=== PATIENT | female | born 1955 | race Two or more races ===

== ENCOUNTER 2019-09-11 17:08 | Inpatient (IN) | payer MEDICARE, MEDICAID ==
[~2019-09-11] VITALS: Ht 162.6 cm; Wt 87.0 kg
[2019-09-11] MEDS ORDERED: ACETAMINOPHEN 500 MG TAB PO ONE (18:00)
[2019-09-11 18:36] LABS: Basophils # (auto) 0 10 ^3/uL (0-0.2); Basophils % (auto) 0.3 % (0.0-2.0); Eosinophils # (auto) 0 10 ^3/uL (0-0.8); Hematocrit 44.7 % (36.0-46.0); Hemoglobin 15.1 g/dL (12.2-16.2); Lymphocytes # (auto) 1.2 10 ^3/uL (0.4-5.4); Lymphocytes % (auto) 19.8 % (10.0-50.0); Mean Corpuscular Hemoglobin 30.6 pg (28.0-32.0); Mean Corpuscular Hgb Conc. 33.8 g/dL (32.0-36.0); Mean Corpuscular Volume 90.5 fL (80.0-100.0); Monocytes # (auto) 0.5 10 ^3/uL (0-1.3); Monocytes % (auto) 7.7 % (0.0-12.0); Neutrophils # (auto) 4.2 10 ^3/uL (1.6-8.6); Neutrophils % (auto) 72.2 % (37.0-80.0); Nucleated Red Blood Cells % 0.4 %; Platelet Count (auto) 174 10^3/uL (140-450); Red Blood Cells 4.94 10^6/uL (4.0-5.20); White Blood Cell 5.9 10^3/uL (4.4-10.8)
[2019-09-11] MEDS ORDERED: SODIUM CHLORIDE 0.9% 1,000 ML IV ONE (18:45)
[2019-09-11] MEDS ORDERED: DexAMETHasone SOD PHOS 10MG/1ML VIAL INJ IV ONE (18:45)
[2019-09-11] MEDS ORDERED: DOXYCYCLINE 100MG/250ML 250 ML IV ONE (18:45)
[2019-09-11 18:52] LABS: Albumin 3.3 g/dL (3.4-5.0); Calcium 8.4 mg/dL (8.5-10.1); Potassium 3.6 mmol/L (3.5-5.1)
[2019-09-11 18:54] LABS: INR 0.98 (0.9-1.15); Partial Thromboplastin Time 27.3 sec (23.64-32.05)
[2019-09-11 19:00] LABS: BUN/Creatinine Ratio 12.5; Bilirubin, Total 0.4 mg/dL (0.2-1.0); CRP High Sensitivity 2.1 mg/dL (< 0.3)
[2019-09-11 23:30] LABS: Urine Bacteria NONE SEEN /hpf (None Seen); Urine Blood Negative /uL (Negative); Urine Specific Gravity 1.007 (1.001-1.035); Urine WBC 1 /hpf (0 - 5)
[2019-09-12] VITALS (7 sets, daily range): BP systolic 107–142; BP diastolic 51–83
[2019-09-12] MEDS ORDERED: NITROGLYCERIN 0.4 MG SL TAB SL PRN (03:00)
[2019-09-12] MEDS ORDERED: ONDANSETRON HCL 4 MG/2 ML VIAL IV PRN (03:00)
[2019-09-12] MEDS ORDERED: MORPHINE SULF INJ 2 MG/ML SYRINGE 1ML IV PRN (03:00)
[2019-09-12] MEDS ORDERED: ACETAMINOPHEN 500 MG TAB PO PRN (03:00)
--- NOTE | 2019-09-12 04:50 | NUR ---
Opening note Telemetry admit from ER RUDDY TEAGUE admitted to Telemetry unit after SBAR received. Patient oriented to MK THOMSON, RN primary RN, unit, room, bed, and unit policies regarding patient care and visiting hours. Patient now on continuous telemetry monitoring, tele box # 19 and telemetry reading on arrival to unit is NSR HR 69. Patient placed on bedside oxygen, weighed by bedscale and encouraged to call if they need something. All questions and concerns addressed, patient verbalized understanding.
[2019-09-12] MEDS ORDERED: ASPI-394 PO (05:49)
[2019-09-12] MEDS ORDERED: AMLO5TAB15 PO (05:51)
--- NOTE | 2019-09-12 07:16 | NUR ---
Closing note endorsed care to day shift RN No sob or distress noted.
[2019-09-12] MEDS: ALBUTEROL SULF HFA 90MCG INH 200DOSE IN SCH ×3 (08:48→23:05)
[2019-09-12] MEDS: ZINC SULFATE 220mg CAP or TAB PO SCH (08:54)
[2019-09-12] MEDS: DOXYCYCLINE 100MG/250ML 250 ML IV SCH ×2 (08:54→20:52)
[2019-09-12] MEDS: FAMOTIDINE 20 MG TAB PO SCH ×2 (08:54→20:52)
[2019-09-12] MEDS: ASCORBIC ACID 1,000 MG TAB PO SCH (08:55)
[2019-09-12] MEDS: CHOLECALCIFEROL (VITD3) 2,000 UNIT CAP PO SCH (08:55)
[2019-09-12] MEDS ORDERED: ENOXAPARIN SOD 40 MG/0.4 ML SYRINGE SC SCH (10:00)
[2019-09-12] MEDS ORDERED: BUDESONIDE (INHALATION) 180 MCG IH IN SCH ×2 (10:00→10:06)
[2019-09-12] MEDS ORDERED: DexAMETHasone SOD PHOS 10MG/1ML VIAL INJ IV SCH (10:00)
--- NOTE | 2019-09-12 12:10 | NUR ---
DR MEJIA BEDSIDE WITH PATIENT.
[2019-09-12] MEDS ORDERED: DexAMETHasone 4 MG TAB PO ONE (13:30)
[2019-09-12] MEDS ORDERED: FUROSEMIDE 20 MG/2 ML VIAL IV ONE (13:30)
[2019-09-12] MEDS ORDERED: POTASSIUM CHL 10 Meq TABLET PO ONE (13:30)
[2019-09-12] MEDS: HYDROcodone-ACET 5/325MG TAB PO PRN (14:12)
[2019-09-12] MEDS ORDERED: guaiFENesin-DM 100/10mg/5ml SYR PO PRN (14:15)
[2019-09-12] MEDS: FUROSEMIDE 20 MG/2 ML VIAL IV SCH (17:57)
--- NOTE | 2019-09-12 19:22 | NUR ---
Opening note Assumed care of patient. Patient is alert and orientated x4. resting watching television. No sob or distress noted. Patient states no pain at this time. Bed locked in lowest position. Side rails up x2. Poc reviewed. questions answered at this time. Will continue to monitor.
[2019-09-12] MEDS: POTASSIUM CHL 10 Meq TABLET PO SCH (20:52)
[2019-09-12] MEDS: ENOXAPARIN SOD 40 MG/0.4 ML SYRINGE SC SCH (20:53)
[2019-09-12] MEDS: BUDESONIDE (INHALATION) 180 MCG IH IN SCH (23:05)
--- NOTE | 2019-09-13 01:06 | NUR ---
Patient rounding Patient is asleep in bed. Chest evenly rising, no SOB or distress noted. patient is on 2L nasal canula. Call light within reach. Will continue to monitor.
[2019-09-13 05:00] VITALS: BP 112/64
[2019-09-13] MEDS: FUROSEMIDE 20 MG/2 ML VIAL IV SCH ×2 (05:39→17:37)
[2019-09-13] MEDS: HYDROcodone-ACET 5/325MG TAB PO PRN ×2 (05:53→21:19)
--- NOTE | 2019-09-13 07:11 | NUR ---
Closing note endorsed care to day shift RN no sob or distress noted.
[2019-09-13 08:00] VITALS: BP 104/64
[2019-09-13] MEDS: ALBUTEROL SULF HFA 90MCG INH 200DOSE IN SCH ×3 (08:08→22:00)
[2019-09-13] MEDS: BUDESONIDE (INHALATION) 180 MCG IH IN SCH ×2 (08:08→22:00)
[2019-09-13 09:00] VITALS: BP 104/64
[2019-09-13] MEDS: amLODIPine BESYLATE 5 MG TAB PO SCH (10:00)
[2019-09-13] MEDS: ZINC SULFATE 220mg CAP or TAB PO SCH (10:12)
[2019-09-13] MEDS: POTASSIUM CHL 10 Meq TABLET PO SCH ×2 (10:12→21:18)
[2019-09-13] MEDS: DexAMETHasone 4 MG TAB PO SCH (10:12)
[2019-09-13] MEDS: ASPirin-EC 81 mg tab PO SCH (10:12)
[2019-09-13] MEDS: DOXYCYCLINE 100MG/250ML 250 ML IV SCH ×2 (10:12→21:18)
[2019-09-13] MEDS: CHOLECALCIFEROL (VITD3) 2,000 UNIT CAP PO SCH (10:13)
[2019-09-13] MEDS: ASCORBIC ACID 1,000 MG TAB PO SCH (10:13)
[2019-09-13] MEDS: FAMOTIDINE 20 MG TAB PO SCH ×2 (10:13→21:18)
[2019-09-13] MEDS: ENOXAPARIN SOD 40 MG/0.4 ML SYRINGE SC SCH ×2 (10:14→21:18)
[2019-09-13 12:24] LABS: Basophils # (auto) 0 10 ^3/uL (0-0.2); Basophils % (auto) 0.1 % (0.0-2.0); Eosinophils # (auto) 0 10 ^3/uL (0-0.8); Hematocrit 42.7 % (36.0-46.0); Hemoglobin 14.1 g/dL (12.2-16.2); Lymphocytes % (auto) 8.2 % (10.0-50.0); Mean Corpuscular Hgb Conc. 33.1 g/dL (32.0-36.0); Mean Corpuscular Volume 90.8 fL (80.0-100.0); Monocytes # (auto) 0.7 10 ^3/uL (0-1.3); Monocytes % (auto) 5.9 % (0.0-12.0); Neutrophils # (auto) 10.4 10 ^3/uL (1.6-8.6); Neutrophils % (auto) 85.8 % (37.0-80.0); Platelet Count (auto) 215 10^3/uL (140-450); Red Cell Distribution Width 13.7 % (11.8-14.3); White Blood Cell 12.1 10^3/uL (4.4-10.8)
--- NOTE | 2019-09-13 12:40 | NUR ---
DR METCALF BEDSIDE WITH PATIENT
[2019-09-13 12:42] LABS: Albumin 2.9 g/dL (3.4-5.0); Calcium 8.7 mg/dL (8.5-10.1); Potassium 3.3 mmol/L (3.5-5.1)
[2019-09-13 12:46] LABS: BUN/Creatinine Ratio 20.9; Bilirubin, Total 0.3 mg/dL (0.2-1.0); Total Protein 7.4 g/dL (6.4-8.2)
[2019-09-13 13:00] VITALS: BP 113/65
[2019-09-13] MEDS ORDERED: POTASSIUM CHL 20 Meq TABLET PO ONE (14:15)
[2019-09-13 17:29] VITALS: BP 108/60
--- NOTE | 2019-09-13 19:40 | NUR ---
Opening Shift Note Received report and assumed care of patient. Patient is awake and alert. No signs or symptoms of distress noted. Instructed patient on plan of care and to call for assistance as needed. Will continue to monitor.
--- NOTE | 2019-09-13 21:19 | NUR ---
Pain Medication Administration Patient complaining of headache pain level 8/10. Patient requesting [place]. Educated patient regarding pain level and pain medications. Patient verbalized understanding, continues to request [place]. Will administer pain medication per MD order. Will reassess pain level and will continue to monitor.
[2019-09-13 22:00] VITALS: BP 125/79
--- NOTE | 2019-09-13 22:19 | NUR ---
Pain Level Reassessment Patient asleep for pain level reassessment. No signs or symptoms of distress noted. Will continue to monitor.
[2019-09-14] MEDS: TEMAZEPAM 15 MG CAP PO PRN (00:07)
[2019-09-14 05:00] VITALS: BP 104/71
[2019-09-14 06:45] LABS: Basophils # (auto) 0 10 ^3/uL (0-0.2); Eosinophils # (auto) 0 10 ^3/uL (0-0.8); Hematocrit 41.3 % (36.0-46.0); Hemoglobin 13.8 g/dL (12.2-16.2); Lymphocytes # (auto) 1.1 10 ^3/uL (0.4-5.4); Lymphocytes % (auto) 8.7 % (10.0-50.0); Mean Corpuscular Hemoglobin 30.3 pg (28.0-32.0); Mean Corpuscular Hgb Conc. 33.5 g/dL (32.0-36.0); Mean Corpuscular Volume 90.2 fL (80.0-100.0); Monocytes # (auto) 0.7 10 ^3/uL (0-1.3); Monocytes % (auto) 5.6 % (0.0-12.0); Neutrophils % (auto) 85.7 % (37.0-80.0); Nucleated Red Blood Cells % 0.1 %; Platelet Count (auto) 226 10^3/uL (140-450); Red Blood Cells 4.57 10^6/uL (4.0-5.20); Red Cell Distribution Width 13.9 % (11.8-14.3); White Blood Cell 12.9 10^3/uL (4.4-10.8)
[2019-09-14] MEDS: FUROSEMIDE 20 MG/2 ML VIAL IV SCH ×2 (06:51→18:43)
[2019-09-14 07:06] LABS: Albumin 2.9 g/dL (3.4-5.0); Calcium 8.7 mg/dL (8.5-10.1); Magnesium 2.6 mg/dL (1.6-2.6)
[2019-09-14 07:14] LABS: BUN/Creatinine Ratio 23.5; Bilirubin, Total 0.4 mg/dL (0.2-1.0); CRP High Sensitivity 1.83 mg/dL (< 0.3); Total Protein 7.4 g/dL (6.4-8.2)
[2019-09-14] MEDS: BUDESONIDE (INHALATION) 180 MCG IH IN SCH ×2 (07:39→21:55)
[2019-09-14] MEDS: ALBUTEROL SULF HFA 90MCG INH 200DOSE IN SCH ×3 (07:39→21:55)
[2019-09-14 09:00] VITALS: BP 114/76
[2019-09-14] MEDS: DOXYCYCLINE 100MG/250ML 250 ML IV SCH ×2 (09:39→22:11)
[2019-09-14] MEDS: DexAMETHasone 4 MG TAB PO SCH (09:39)
[2019-09-14] MEDS: ASPirin-EC 81 mg tab PO SCH (09:39)
[2019-09-14] MEDS: CHOLECALCIFEROL (VITD3) 2,000 UNIT CAP PO SCH (09:40)
[2019-09-14] MEDS: ASCORBIC ACID 1,000 MG TAB PO SCH (09:40)
[2019-09-14] MEDS: FAMOTIDINE 20 MG TAB PO SCH ×2 (09:40→22:11)
[2019-09-14] MEDS: POTASSIUM CHL 10 Meq TABLET PO SCH ×2 (09:40→22:11)
[2019-09-14] MEDS: ZINC SULFATE 220mg CAP or TAB PO SCH (09:41)
[2019-09-14] MEDS: amLODIPine BESYLATE 5 MG TAB PO SCH (09:43)
[2019-09-14] MEDS: HYDROcodone-ACET 5/325MG TAB PO PRN ×2 (09:48→19:20)
[2019-09-14] MEDS ORDERED: PATIENTS OWN MEDICATION (REMDESIVIR 200 MG) IV SCH (12:15)
[2019-09-14 13:00] VITALS: BP 113/69
[2019-09-14] MEDS: ENOXAPARIN SOD 40 MG/0.4 ML SYRINGE SC SCH ×2 (14:16→22:11)
[2019-09-14] MEDS ORDERED: REMDESIVIR 200 MG in NS 210ml LOADING DOSE ADULT IV ONE (17:00)
--- NOTE | 2019-09-14 17:40 | NUR ---
REMDESIVIR STARTED B/P 114/75
--- NOTE | 2019-09-14 17:57 | NUR ---
B/P 117/52 OXYGEN SATURATION 96 % ON 15 LITERS NON REBREATHER
[2019-09-14 18:13] VITALS: BP 114/75
--- NOTE | 2019-09-14 19:36 | NUR ---
Opening Shift Note Received report and assumed care of patient. Patient is awake and alert. No signs or symptoms of distress noted, patient currently denies pain. Instructed patient on plan of care and to call for assistance as needed. Will continue to monitor.
--- NOTE | 2019-09-14 21:55 | NUR ---
IV insertion IV access obtained, via sterile technique by inserting 22 gauge IV catheter to the Left wrist. IV secured properly. No trauma to site. Patient tolerated well. NOTE: Patient has 20g IV catheter to Right AC for Remdesivir.
[2019-09-14 22:00] VITALS: BP 125/77
[2019-09-15 02:26] VITALS: BP 125/77
[2019-09-15 05:00] VITALS: BP 154/93
[2019-09-15] MEDS: FUROSEMIDE 20 MG/2 ML VIAL IV SCH ×2 (06:17→17:28)
[2019-09-15] MEDS: BUDESONIDE (INHALATION) 180 MCG IH IN SCH ×2 (08:19→21:18)
[2019-09-15] MEDS: ALBUTEROL SULF HFA 90MCG INH 200DOSE IN SCH ×3 (08:19→21:17)
--- NOTE | 2019-09-15 08:30 | NUR ---
Patient refuses to wear Oxymizer because it bothers her, she also will not keep non rebreather on all the time, she take it off frequently. When educated on the need to wear oxygen the patient verbalizes understanding but each time I enter the room she is not fully wearing it, it is sitting below her chin.
[2019-09-15 09:00] VITALS: BP 121/71
[2019-09-15] MEDS: DOXYCYCLINE 100MG/250ML 250 ML IV SCH ×2 (10:14→21:15)
[2019-09-15] MEDS: DexAMETHasone 4 MG TAB PO SCH (10:15)
[2019-09-15] MEDS: FAMOTIDINE 20 MG TAB PO SCH ×2 (10:15→21:14)
[2019-09-15] MEDS: ASCORBIC ACID 1,000 MG TAB PO SCH (10:15)
[2019-09-15] MEDS: ZINC SULFATE 220mg CAP or TAB PO SCH (10:15)
[2019-09-15] MEDS: ASPirin-EC 81 mg tab PO SCH (10:15)
[2019-09-15] MEDS: POTASSIUM CHL 10 Meq TABLET PO SCH ×2 (10:15→21:14)
[2019-09-15] MEDS: ENOXAPARIN SOD 40 MG/0.4 ML SYRINGE SC SCH ×2 (10:16→21:15)
[2019-09-15] MEDS: CHOLECALCIFEROL (VITD3) 2,000 UNIT CAP PO SCH (10:16)
[2019-09-15] MEDS: amLODIPine BESYLATE 5 MG TAB PO SCH (10:16)
[2019-09-15 12:00] VITALS: BP 129/91
--- NOTE | 2019-09-15 12:00 | NUR ---
Patient complained that IV was uncomfortable, although still patent, and asked for it to be removed. Patient tolerated well, IV removed with catheter intact.
--- NOTE | 2019-09-15 12:59 | NUR ---
Nutrition Assessment Notes Please refer to link for full assessment notes. Est Energy needs: 9194-0893 kcals (17-20 kcal/kgBW) Est Protein needs: 82-109 gms/day (1.5-2.0 gm/kgIBW) Will continue to monitor and reassess prn. Addendum: 09/15/19 at [address] Amended: Links added.
[2019-09-15] MEDS: HYDROcodone-ACET 5/325MG TAB PO PRN ×2 (13:17→21:15)
[2019-09-15 17:00] VITALS: BP 113/83
[2019-09-15] MEDS: REMDESIVIR 100mg in NS 230ml DAILYx4DAYS (NO VENT) IV SCH (17:03)
--- NOTE | 2019-09-15 19:30 | NUR ---
Opening Shift Note Assumed care of patient, awake and alert x 4. Patient denies pain or shortness of breath at this time. Patient is on 10L/min simple mask, SPO2: 91% at this time. Instructed on plan of care and encouraged patient to call for assistance as needed, patient verbalized understanding. Incentive spirometer noted at the bedside, patient encouraged to use incentive spirometer at least 10 times every hour while awake. Patient encouraged to prone as tolerated, patient verbalized understanding. Bed is locked in lowest position, side rails x 2 are up, and call light is within reach.
--- NOTE | 2019-09-15 21:00 | NUR ---
Oxygen Desaturation Patient called, upon entering room patient was found with mask off, SPO2: at 82%. Patient was complaining of a headache at this time. This RN instructed patient to place mask on and educated patient on the importance of leaving the mask on and the risks of hypoxia, patient verbalized understanding. Patient placed on 15L/min nonrebreather, SPO2 increased to 94%. No sign/symptoms of distress noted or verbalized at this time. Bed is locked in lowest position, side rails x2 are up, and call light is within reach.
--- NOTE | 2019-09-15 21:17 | NUR ---
RT NOTE PT WAS SEEN BY RT FOR MDI TX. PT TOLERATES WELL VIA SPACER. PT RINSED MOUTH WITH WATER POST MDI TX. HR 97, RR20, BS CLEAR/DIMINISHED, POX 92% ON 15L NONREBREATHER. CONT ORDERED Addendum: 09/15/19 at 2308 by Nilda Abrams RT Amended: Links added.
--- NOTE | 2019-09-15 21:55 | NUR ---
Bed Bath Assisted patient with a bed bath. Full linen change was done. Patient was provided with a clean gown. Patient tolerated well. Patient is on 15L/min nonrebreather, SPO2: 92% at this time. Bed is locked in lowest position, side rails x 2 are up, and call light is within.
[2019-09-15 22:00] VITALS: BP 142/89
--- NOTE | 2019-09-16 05:00 | NUR ---
Oxygen Desaturation Patient's oxygen saturation noted at 79% on equipment monitor phototypesetting. Upon entering room patient had nonrebreather off. This RN instructed patient to place nonrebreather back on and educated patient on the risks of hypoxia, patient verbalized understanding and stated that she took off the nonrebreather off due to nausea. This RN medicated patient for nauseas as ordered by MD (see eMAR). Patient is currently laying in bed with even and unlabored respirations. Patient is on 15L/min nonrebreather, spo2: 95% at this time. No sign/symptoms of distress noted or verbalized at this time.
[2019-09-16 05:11] VITALS: BP 126/79
[2019-09-16] MEDS: FUROSEMIDE 20 MG/2 ML VIAL IV SCH ×2 (05:38→17:37)
[2019-09-16] MEDS: ALBUTEROL SULF HFA 90MCG INH 200DOSE IN SCH ×3 (05:39→22:02)
[2019-09-16] MEDS: BUDESONIDE (INHALATION) 180 MCG IH IN SCH ×2 (07:20→22:02)
[2019-09-16 07:54] LABS: Basophils # (auto) 0 10 ^3/uL (0-0.2); Basophils % (auto) 0.1 % (0.0-2.0); Eosinophils # (auto) 0 10 ^3/uL (0-0.8); Hematocrit 46.8 % (36.0-46.0); Hemoglobin 15.7 g/dL (12.2-16.2); Lymphocytes # (auto) 1.2 10 ^3/uL (0.4-5.4); Lymphocytes % (auto) 8.3 % (10.0-50.0); Mean Corpuscular Hemoglobin 30.5 pg (28.0-32.0); Mean Corpuscular Hgb Conc. 33.6 g/dL (32.0-36.0); Mean Corpuscular Volume 90.6 fL (80.0-100.0); Monocytes # (auto) 1.2 10 ^3/uL (0-1.3); Monocytes % (auto) 8.3 % (0.0-12.0); Neutrophils # (auto) 11.9 10 ^3/uL (1.6-8.6); Neutrophils % (auto) 83.3 % (37.0-80.0); Nucleated Red Blood Cells % 0.1 %; Platelet Count (auto) 336 10^3/uL (140-450); Red Blood Cells 5.17 10^6/uL (4.0-5.20); Red Cell Distribution Width 13.9 % (11.8-14.3); White Blood Cell 14.3 10^3/uL (4.4-10.8)
[2019-09-16 08:06] LABS: Albumin 3.1 g/dL (3.4-5.0); Calcium 9.2 mg/dL (8.5-10.1); Potassium 3.3 mmol/L (3.5-5.1)
[2019-09-16 08:11] LABS: BUN/Creatinine Ratio 32.8; Bilirubin, Total 0.6 mg/dL (0.2-1.0); Total Protein 8.4 g/dL (6.4-8.2)
[2019-09-16 09:00] VITALS: BP 119/73
--- NOTE | 2019-09-16 10:00 | NUR ---
Patient o2 saturation 75% patient refuses to wear nasal cannula, face mask and oximyzer while eating breakfast, patient shakes her head no, is very short with conversations. I explained that her lungs cannot handle being off oxygen at this point. She just continues to eat, when I ask "do you understand what I am saying?" she shakes her head yes. Dr sanchez aware, she also discussed with patient yesterday. After eating patient reapplies non rebreather at 15L and she is at 96%.
[2019-09-16] MEDS: DexAMETHasone 4 MG TAB PO SCH (10:16)
[2019-09-16] MEDS: ZINC SULFATE 220mg CAP or TAB PO SCH (10:16)
[2019-09-16] MEDS: ASPirin-EC 81 mg tab PO SCH (10:16)
[2019-09-16] MEDS: FAMOTIDINE 20 MG TAB PO SCH ×2 (10:17→23:00)
[2019-09-16] MEDS: ASCORBIC ACID 1,000 MG TAB PO SCH (10:17)
[2019-09-16] MEDS: CHOLECALCIFEROL (VITD3) 2,000 UNIT CAP PO SCH (10:17)
[2019-09-16] MEDS: ENOXAPARIN SOD 40 MG/0.4 ML SYRINGE SC SCH ×2 (10:17→23:01)
[2019-09-16] MEDS: POTASSIUM CHL 10 Meq TABLET PO SCH ×2 (10:17→23:01)
[2019-09-16] MEDS: amLODIPine BESYLATE 5 MG TAB PO SCH (10:20)
--- NOTE | 2019-09-16 10:20 | NUR ---
cant start doxycycline because patient needs remdesevir first, remdesivir not here yet, pharmacy states that they are still making it.
[2019-09-16] MEDS: REMDESIVIR 100mg in NS 230ml DAILYx4DAYS (NO VENT) IV SCH (10:36)
[2019-09-16] MEDS: DOXYCYCLINE 100MG/250ML 250 ML IV SCH ×2 (11:40→23:01)
[2019-09-16 12:00] VITALS: BP 118/60
--- NOTE | 2019-09-16 15:04 | NUR ---
Respiratory note: PATIENT TAKEN OFF NRB AND PLACED ON 10LPM OXYMIZER. SHE IS TOLERATING WELL AND SPO2 MAINTAINS AT 94%. RN MADE AWARE OF CHANGE.
[2019-09-16 16:58] VITALS: BP 120/70
--- NOTE | 2019-09-16 17:00 | NUR ---
Patient family updated on current condition.
--- NOTE | 2019-09-16 20:00 | NUR ---
Opening Shift Note Assumed care of patient, awake and alert x 4. Patient denies pain or shortness of breath at this time. Patient is on 10L/min Oxymizer, SPO2: 91% at this time. Instructed on plan of care and encouraged patient to call for assistance as needed, patient verbalized understanding. Incentive spirometer noted at the bedside, patient encouraged to use incentive spirometer at least 10 times every hour while awake. Patient encouraged to prone as tolerated, patient verbalized understanding. Bed is locked in lowest position, side rails x 2 are up, and call light is within reach.
[2019-09-16] MEDS: HYDROcodone-ACET 5/325MG TAB PO PRN (20:23)
[2019-09-16 22:05] VITALS: BP 102/56
--- NOTE | 2019-09-16 22:50 | NUR ---
PT IS SELF PRONING, NO DISTRESS NOTED. Addendum: 09/16/19 at 2251 by MARJORIE GUZMÁN RT Amended: Links added.
--- NOTE | 2019-09-17 03:56 | NUR ---
Oxygen Desaturation Patient's oxygen saturation noted at 79% on pediatric acute care unit nurse. Upon entering room patient had nonrebreather off. Patient stated she took off the nonrebreather to cough up some sputum. After placing patient back on 15L/min nonrebreather back on, SPO2: increased to 90%. Patient is currently laying in bed with even and unlabored respirations. No sign/symptoms of distress noted or verbalized at this time.
[2019-09-17 05:00] VITALS: BP 106/47
[2019-09-17] MEDS: FUROSEMIDE 20 MG/2 ML VIAL IV SCH ×2 (06:24→18:32)
[2019-09-17] MEDS: ALBUTEROL SULF HFA 90MCG INH 200DOSE IN SCH ×3 (07:02→22:54)
--- NOTE | 2019-09-17 07:12 | NUR ---
Closing Note Patient is laying in prone position with nonrebreather at 15L/min, SPO2: 96% at this time. No sign/symptoms of distress noted or verbalized at this time. Will endorse patient care to day shift RN.
--- NOTE | 2019-09-17 07:30 | NUR ---
Opening Shift Note Assumed care of patient, awake and alert. No S/S of distress/SOB or pain on 15L non-rebreather. Instructed on POC and to call for assist PRN, will continue to monitor for changes Q1hr and PRN. Bed in low and locked position, rails up x2, no-slip socks on.
[2019-09-17] MEDS: BUDESONIDE (INHALATION) 180 MCG IH IN SCH ×2 (07:33→22:54)
--- NOTE | 2019-09-17 08:15 | NUR ---
PATIENT FRUSTRATED-POSSIBLE AMA WITH HELP OF NURSES TO TRANSLATE, PATIENT VOICED FEELINGS OF FRUSTRATION WITH THE HOSPITAL AND COMMUNICATION REGARDING HER CARE. INFORMED PATIENT THAT WHEN MD ARE ROUNDING SHE IS GIVEN OPPORTUNITIES TO ASK QUESTIONS BUT SHE HAS NONE EACH TIME. PATIENT REQUESTING TO LEAVE AMA. EDUCATED PATIENT ON SITUATION OF HER HEALTH, HIGH OXYGEN NEED AND THAT LEAVING THE HOSPITAL AMA IN HER CONDITION CAN RESULT IN . PAGE TO DR MEJIA TO NOTIFY AND CALL TO PATIENTS FAMILY. PASSWORD VERIFIED AND SPOKE TO PATIENT DAUGHTER CHASE, PER CHASE, PATIENT STATED SHE JUST WOULD LIKE MORE ATTENTION TO DETAIL SUCH SELF CARE, CLEANLINESS OF ROOM, COMMUNICATION REGARDING MEALS, WELL COMMUNICATION REGARDING VITAL SIGNS, MEDICATION ADMINISTRATION AND PURPOSE WELL OVERALL PROGRESSION OF DISEASE ETC. CHASE SPOKE TO PATIENT AND PATIENT AGREES TO STAY AND SPEAK TO DR MEJIA REGARDING HER DIAGNOSIS AND CARE BEING TAKEN FOR HER. WILL CONTINUE CARE.
[2019-09-17] MEDS: CHOLECALCIFEROL (VITD3) 2,000 UNIT CAP PO SCH (08:38)
[2019-09-17] MEDS: ZINC SULFATE 220mg CAP or TAB PO SCH (08:38)
[2019-09-17] MEDS: FAMOTIDINE 20 MG TAB PO SCH ×2 (08:39→21:52)
[2019-09-17] MEDS: ASPirin-EC 81 mg tab PO SCH (08:39)
[2019-09-17] MEDS: ASCORBIC ACID 1,000 MG TAB PO SCH (08:39)
[2019-09-17] MEDS: amLODIPine BESYLATE 5 MG TAB PO SCH (08:40)
[2019-09-17] MEDS: DexAMETHasone 4 MG TAB PO SCH (08:41)
[2019-09-17 09:00] VITALS: BP 112/70
[2019-09-17] MEDS: REMDESIVIR 100mg in NS 230ml DAILYx4DAYS (NO VENT) IV SCH (11:23)
[2019-09-17] MEDS: ENOXAPARIN SOD 40 MG/0.4 ML SYRINGE SC SCH ×2 (11:25→21:52)
--- NOTE | 2019-09-17 11:25 | NUR ---
REMDESIVIR STARTED ADMINISTERED PER PROTOCOL TO RIGHT AC 20G TRENDING VITALS 1117: 107/64 HR 62 1138 121/78 HR 74 1229 106/62 HR 70 PATIENT TOLERATED INFUSION WELL WITH NO ADVERSE EFFECTS, WILL CONTINUE TO MONITOR
--- NOTE | 2019-09-17 13:00 | NUR ---
Assessment Patient is a 64-year-old female who is alert and oriented. Prior to admission patient lived with family and functioned independently. Patient informed me she can care for her own ADLs. Patient informed me she does not have any medical equipment now. Per patient she will return home to her prior living arrangements and family will transport her home. Patient PCP is Dr. Perez. Advised patient to follow up with her Primary doctor after discharge. Informed patient she has the right to participate in all discharge planning. Patient verbalize understanding. Addendum: 09/24/19 at 0953 by PATTI WEST Amended: Links added.
[2019-09-17 13:04] VITALS: BP 118/61
--- NOTE | 2019-09-17 14:00 | NUR ---
DR MEJIA AT BEDSIDE UPDATED PATIENT ON PLAN OF CARE, ALL QUESTIONS ANSWERED AND MADE CALL TO PATIENTS FAMILY FOR AN UPDATE, ALL QUESTIONS ANSWERED.
[2019-09-17] MEDS: POTASSIUM CHL 10 Meq TABLET PO SCH (14:01)
[2019-09-17 17:14] VITALS: BP 105/71
--- NOTE | 2019-09-17 19:20 | NUR ---
Opening note Assumed care of patient, patient alert and orientated x4, no sob or distress noted at this time. Patient is on 15L non rebreather, saturation in 94% bed locked in lowest position. Side rails up x2. POC discussed, no questions at this time. Call light within reach, will continue to monitor.
[2019-09-17 20:31] VITALS: BP 105/71
[2019-09-17 22:00] VITALS: BP 126/67
[2019-09-17] MEDS ORDERED: POTASSIUM CHL 20 Meq TABLET PO SCH (22:00)
[2019-09-17] MEDS: MORPHINE SULF INJ 2 MG/ML SYRINGE 1ML IV PRN (23:46)
--- NOTE | 2019-09-17 23:46 | NUR ---
pain Patient states pain 9/10. Patient states she has a headache, medicated per md orders, see emar. Will reassess patient and continue to monitor.
--- NOTE | 2019-09-18 00:16 | NUR ---
Pain reassessment Patient is asleep no distress or sob noted. patient is on 15L nonrebreather. chest evenly rising. Will continue to monitor.
[2019-09-18 05:00] VITALS: BP 120/74
--- NOTE | 2019-09-18 06:10 | NUR ---
Patient proning Patient saturation 97% on 15L non rebreather. Patient was proning and asleep no sob or signs of distress noted. will continue to monitor.
[2019-09-18] MEDS: FUROSEMIDE 20 MG/2 ML VIAL IV SCH ×2 (06:44→17:29)
[2019-09-18] MEDS: BUDESONIDE (INHALATION) 180 MCG IH IN SCH ×2 (07:17→22:00)
[2019-09-18] MEDS: ALBUTEROL SULF HFA 90MCG INH 200DOSE IN SCH ×3 (07:17→22:00)
--- NOTE | 2019-09-18 07:30 | NUR ---
Opening Shift Note Assumed care of patient, awake and alert. No S/S of distress/SOB or pain. Bed is low, locked with 2x side rails up. Call light is within reach. Instructed on POC and to call for assist PRN, will continue to monitor for changes Q1hr and PRN.
--- NOTE | 2019-09-18 07:30 | NUR ---
closing note endorsed care to day shift RN no distress or sob noted
[2019-09-18 07:43] LABS: Basophils # (auto) 0 10 ^3/uL (0-0.2); Eosinophils # (auto) 0.1 10 ^3/uL (0-0.8); Eosinophils % (auto) 0.7 % (0.0-7.0); Monocytes # (auto) 1.1 10 ^3/uL (0-1.3); White Blood Cell 16.7 10^3/uL (4.4-10.8)
[2019-09-18 07:45] LABS: Hematocrit 49.1 % (36.0-46.0); Hemoglobin 16.3 g/dL (12.2-16.2); Lymphocytes # (auto) 1.2 10 ^3/uL (0.4-5.4); Lymphocytes % (auto) 6.9 % (10.0-50.0); Mean Corpuscular Hemoglobin 29.8 pg (28.0-32.0); Mean Corpuscular Hgb Conc. 33.1 g/dL (32.0-36.0); Mean Corpuscular Volume 90.2 fL (80.0-100.0); Monocytes % (auto) 6.6 % (0.0-12.0); Neutrophils # (auto) 14.4 10 ^3/uL (1.6-8.6); Neutrophils % (auto) 85.8 % (37.0-80.0); Platelet Count (auto) 475 10^3/uL (140-450); Red Blood Cells 5.45 10^6/uL (4.0-5.20)
[2019-09-18 08:02] LABS: BUN/Creatinine Ratio 38.4; Potassium 3.2 mmol/L (3.5-5.1)
[2019-09-18 09:00] VITALS: BP 111/69
[2019-09-18] MEDS: ZINC SULFATE 220mg CAP or TAB PO SCH (10:28)
[2019-09-18] MEDS: REMDESIVIR 100mg in NS 230ml DAILYx4DAYS (NO VENT) IV SCH (10:28)
[2019-09-18] MEDS: DexAMETHasone 4 MG TAB PO SCH (10:29)
[2019-09-18] MEDS: ASPirin-EC 81 mg tab PO SCH (10:29)
[2019-09-18] MEDS: POTASSIUM CHL 20 Meq TABLET PO SCH ×2 (10:30→22:18)
[2019-09-18] MEDS: amLODIPine BESYLATE 5 MG TAB PO SCH (10:30)
[2019-09-18] MEDS: FAMOTIDINE 20 MG TAB PO SCH ×2 (10:31→22:17)
[2019-09-18] MEDS: ENOXAPARIN SOD 40 MG/0.4 ML SYRINGE SC SCH ×2 (10:31→22:18)
[2019-09-18] MEDS: CHOLECALCIFEROL (VITD3) 2,000 UNIT CAP PO SCH (10:31)
[2019-09-18] MEDS: ASCORBIC ACID 1,000 MG TAB PO SCH (10:32)
[2019-09-18 12:44] VITALS: BP 108/68
[2019-09-18] MEDS ORDERED: LACTULOSE 20Gm/30ML SOLN PO ONE (13:00)
--- NOTE | 2019-09-18 14:40 | NUR ---
Nutrition Followup Notes Wt: 93.5 kg Unable to speak to pt d/t pt is positive for COVID. Pt is with a regular diet with adequate PO of > 75% x 4 per RN doc Est Energy needs: 5158-2800 kcals (17-20 kcal/kgBW), Est Protein needs: 82-109 gms/day (1.5-2.0 gm/kgIBW). Will continue to monitor and reassess prn. LABS: BUN 28 , ALB 3.1 L GI: Pt had 1 BM on 09/10 per RN doc BS: 21 low risk. Refer to wound assessment report for full details. PES: Obesity aeb 161% IBW and BMI of 33.1 kg/m2 r/t energy intake in excess of energy needs Comments: Will folow up PO intake, skin status F/u mod 3-5 days Rec: 1) Continue to closely monitor pt PO intake to meet at least 75% of meals. 2) Continue current plan of care
--- NOTE | 2019-09-18 15:54 | NUR ---
Remdesivir BP:122/78 HR:77 BP: 98/63 HR:71 BP: 112/73 HR: 73
[2019-09-18 17:00] VITALS: BP 113/63
--- NOTE | 2019-09-18 19:30 | NUR ---
Opening Shift Note Assumed care of patient, awake and alert. No S/S of distress or pain at this time. Instructed on POC and to call for assist PRN, will continue to monitor for changes Q1hr and PRN.
[2019-09-18] MEDS: diphenhdrAMINE HCL 50 MG/1 ML VL IV SCH (22:16)
[2019-09-18] MEDS: ACETAMINOPHEN 650 mg PER 20 mL UD PO SCH (22:16)
[2019-09-18] MEDS: methylPREDNISolone SOD SUCC 40 MG/ML VL IV SCH (22:17)
[2019-09-18] MEDS: TOCILIZUMAB 400 MG in SODIUM CHL 0.9% 80 ML IV SCH (22:27)
[2019-09-18 23:03] VITALS: BP 124/71
--- NOTE | 2019-09-19 01:45 | NUR ---
pt is desating to low 90's on 15L non rebreather mask. spoke with RT and said she usually desating low 90's and mickie him if it below 85%. Will keep an eye on her. At this time pt's O2 is 89%
[2019-09-19 05:20] VITALS: BP 129/71
[2019-09-19] MEDS: FUROSEMIDE 20 MG/2 ML VIAL IV SCH ×2 (05:40→17:24)
[2019-09-19] MEDS: SENNA 8.6 MG TAB PO PRN (05:41)
[2019-09-19] MEDS: ALBUTEROL SULF HFA 90MCG INH 200DOSE IN SCH ×3 (06:44→21:18)
[2019-09-19] MEDS: BUDESONIDE (INHALATION) 180 MCG IH IN SCH ×2 (06:44→21:18)
[2019-09-19 08:35] VITALS: BP 115/58
[2019-09-19] MEDS: DexAMETHasone 4 MG TAB PO SCH (09:05)
[2019-09-19] MEDS: ASPirin-EC 81 mg tab PO SCH (09:05)
[2019-09-19] MEDS: POTASSIUM CHL 20 Meq TABLET PO SCH ×2 (09:05→21:15)
[2019-09-19] MEDS: ZINC SULFATE 220mg CAP or TAB PO SCH (09:05)
[2019-09-19] MEDS: amLODIPine BESYLATE 5 MG TAB PO SCH (09:06)
[2019-09-19] MEDS: FAMOTIDINE 20 MG TAB PO SCH ×2 (09:06→21:15)
[2019-09-19] MEDS: CHOLECALCIFEROL (VITD3) 2,000 UNIT CAP PO SCH (09:06)
[2019-09-19] MEDS: ASCORBIC ACID 1,000 MG TAB PO SCH (09:06)
[2019-09-19] MEDS: methylPREDNISolone SOD SUCC 40 MG/ML VL IV SCH (09:07)
[2019-09-19] MEDS: ENOXAPARIN SOD 40 MG/0.4 ML SYRINGE SC SCH ×2 (09:07→21:15)
[2019-09-19] MEDS: ACETAMINOPHEN 650 mg PER 20 mL UD PO SCH (09:08)
[2019-09-19] MEDS: diphenhdrAMINE HCL 50 MG/1 ML VL IV SCH (09:08)
--- NOTE | 2019-09-19 09:29 | NUR ---
Consent for Plasma Explained in Ukrainian to patient and patient also read consent in Ukrainian.
[2019-09-19] MEDS: TOCILIZUMAB 400 MG in SODIUM CHL 0.9% 80 ML IV SCH (10:37)
[2019-09-19 13:00] VITALS: BP 113/80
[2019-09-19 17:08] VITALS: BP 138/78
--- NOTE | 2019-09-19 19:30 | NUR ---
Opening Shift Note Assumed care of patient, awake and alert. Instructed on POC and to call for assist PRN, will continue to monitor for changes Q1hr and PRN.
--- NOTE | 2019-09-19 20:30 | NUR ---
pt's nose is bleeding. blowing her nose stated its congested. spoke to the daughter over the phone regarding pt's status. Respiratory therapist at bedside doing breathing treatment.
[2019-09-19 22:00] VITALS: BP 111/73
[2019-09-20] VITALS (9 sets, daily range): BP systolic 108–132; BP diastolic 76–93
[2019-09-20] MEDS: HYDROcodone-ACET 5/325MG TAB PO PRN (00:36)
[2019-09-20] MEDS: MORPHINE SULF INJ 2 MG/ML SYRINGE 1ML IV PRN (03:53)
[2019-09-20] MEDS: FUROSEMIDE 20 MG/2 ML VIAL IV SCH ×2 (05:31→17:51)
[2019-09-20] MEDS: ALBUTEROL SULF HFA 90MCG INH 200DOSE IN SCH ×3 (07:16→23:10)
[2019-09-20] MEDS: BUDESONIDE (INHALATION) 180 MCG IH IN SCH ×2 (07:16→23:10)
--- NOTE | 2019-09-20 07:16 | NUR ---
Respiratory note: MDI GIVEN BY RT, TOLERATED WELL. HR 70, RR 16, SPO2 90% 15L NRB, BS CLEAR. NO SIGNS OR SYMPTOMS OF RESPIRATORY DISTRESS NOTED. WILL CONTINUE TO MONITOR ORDERED. Addendum: 09/20/19 at 1105 by YUNIOR RUANO RT PT INFORMED TO RINSE MOUTH AFTER PULMICORT DPI
--- NOTE | 2019-09-20 08:00 | NUR ---
ASSESSMENT NOTE PT IS ALERT ORIENTED X4, RESTING IN BED IN LOWFOWLER POSITION, ABLE TO VERBALIS HER NEEDS, SELF REPOSITION, PT APPEAR LETHARGIC, ON 15L NON BREATHING MASK, PAIN 0/10, CALL LIGHT WITHIN REACH
--- NOTE | 2019-09-20 08:01 | NUR ---
CONTINUE ASSESSMENT NOTE PT HAS 15L NBM SAT AT 88 TO 89 %
--- NOTE | 2019-09-20 08:30 | NUR ---
FAMILY PATIENT DAUGHTER ROSA, CALLED TO GET UPDATE ABOUT HER MOM AND HOW MANY LITER OF OXYGEN SHE IS GETTING
--- NOTE | 2019-09-20 09:00 | NUR ---
INCENTIVE SPIROMETER EDUCATED PT HOW TO USE IT AND WHY, PT STATED THE MEDICATIONS ARE MAKING ME SLEEPY> EXPLAIN TO PT THAT THE LACK OF OXYGEN IN HER LUNGS CAN MAKE HER SLEEPY, PROCEED TO EXPLAIN TO PT, THAT THE MORE TO EXERCISE HER LUNGS WITH IS MACHINE, THE MORE FEELING MUCH BETTER, PT VERBALIS UNDERSTANDING
--- NOTE | 2019-09-20 09:30 | NUR ---
Respiratory note: SPOKE TO PATCHER KALYN ABOUT PLACING PT ON MONITOR WITH CONTINUOUS POX.
[2019-09-20] MEDS: ENOXAPARIN SOD 40 MG/0.4 ML SYRINGE SC SCH ×2 (09:42→21:12)
[2019-09-20] MEDS: DexAMETHasone 4 MG TAB PO SCH (09:43)
[2019-09-20] MEDS: FAMOTIDINE 20 MG TAB PO SCH ×2 (09:43→21:02)
[2019-09-20] MEDS: ASPirin-EC 81 mg tab PO SCH (09:43)
[2019-09-20] MEDS: ZINC SULFATE 220mg CAP or TAB PO SCH (09:43)
[2019-09-20] MEDS: ASCORBIC ACID 1,000 MG TAB PO SCH (09:43)
[2019-09-20] MEDS: POTASSIUM CHL 20 Meq TABLET PO SCH ×2 (09:43→21:02)
[2019-09-20] MEDS: CHOLECALCIFEROL (VITD3) 2,000 UNIT CAP PO SCH (09:44)
[2019-09-20] MEDS: amLODIPine BESYLATE 5 MG TAB PO SCH (09:44)
--- NOTE | 2019-09-20 10:50 | NUR ---
PATIENT'S DAUGHTER EMMETT CALLED AGAIN WANT TO MAKE SURE THAT HER MOM HAVE THE OXYGEN ON AT ALL TIMES
--- NOTE | 2019-09-20 12:30 | NUR ---
PT IS VERY RESISTANCE TO SIT UP HIGH, CONVINCE PT TO REPOSITION UPRIGHT, NOW PT SAT AT 91 % AT 15 L, CONTINUE MONITORING
--- NOTE | 2019-09-20 15:30 | NUR ---
NICOLÁS FROM BLOOD BANK CALLED SAID THAT TH EPLASMA WILL BE DEFROSTED AND READY AT 1610, [facility] CHARGE NURSE MADE AWARE, NICOLÁS REQUESTED ONLY A COPY OF THE [facility] CONSENT
--- NOTE | 2019-09-20 16:34 | NUR ---
PLASMA CONVALESCENT TRANSFUSION INITIATED, PRE SET OF VS IS TAKEN, EDUCATED PT OF WHAT SHE IS GETTING AND WHAT WILL EXPECT, PT VERBALIS UNDERSTANDING
--- NOTE | 2019-09-20 17:00 | NUR ---
TRANSFUSION CONTINUE ON, PT TOLERATED WELL
--- NOTE | 2019-09-20 17:45 | NUR ---
PT TOLERATED PLASMA TRANSFUSION WELL, CONTINUE MONITORING
--- NOTE | 2019-09-20 18:31 | NUR ---
PT CONTINUE STABLE, CONTINUE MONITORING
--- NOTE | 2019-09-20 19:55 | NUR ---
RECEIVED CALL FROM DAUGHTER PASSWORD PROVIDED. FAMILY UPDATED. WILL CONTINUE TO MONITOR PATIENT.
--- NOTE | 2019-09-20 21:13 | NUR ---
ATTEMPTED TO ADMINISTER SQ INJECTION PATIENT PULLED AWAY MID INJECTION STATING THAT IT HURT. PATIENT AT THIS TIME REFUSES TO FINISH MEDICATION. PATIENT STATES THAT THIS IS HER FIRST TIME RECEIVING. PATIENT HAS BEEN RECEIVING FOR PAST SEVERAL DAYS. WILL CONTINUE TO MONITOR.
[2019-09-21] MEDS: MORPHINE SULF INJ 2 MG/ML SYRINGE 1ML IV PRN (01:41)
[2019-09-21 05:00] VITALS: BP 100/58
[2019-09-21] MEDS: FUROSEMIDE 20 MG/2 ML VIAL IV SCH (05:16)
[2019-09-21 08:00] VITALS: BP_SYST 100; BP_SYST 116; BP_DIAS 58; BP_DIAS 80
[2019-09-21] MEDS: ZINC SULFATE 220mg CAP or TAB PO SCH (09:01)
[2019-09-21] MEDS: ASCORBIC ACID 1,000 MG TAB PO SCH (09:02)
[2019-09-21] MEDS: DexAMETHasone 4 MG TAB PO SCH (09:02)
[2019-09-21] MEDS: CHOLECALCIFEROL (VITD3) 2,000 UNIT CAP PO SCH (09:02)
[2019-09-21] MEDS: ASPirin-EC 81 mg tab PO SCH (09:02)
[2019-09-21] MEDS: POTASSIUM CHL 20 Meq TABLET PO SCH (09:02)
[2019-09-21] MEDS: ENOXAPARIN SOD 40 MG/0.4 ML SYRINGE SC SCH ×2 (09:03→22:00)
[2019-09-21] MEDS: FAMOTIDINE 20 MG TAB PO SCH ×2 (10:00→21:59)
--- NOTE | 2019-09-21 10:00 | NUR ---
PT ON PRONE POSITION SAT 96% ON 15 L NBM
[2019-09-21] MEDS: amLODIPine BESYLATE 5 MG TAB PO SCH (10:11)
[2019-09-21] MEDS: ALBUTEROL SULF HFA 90MCG INH 200DOSE IN SCH ×3 (10:27→23:03)
[2019-09-21] MEDS: BUDESONIDE (INHALATION) 180 MCG IH IN SCH ×2 (10:28→23:03)
[2019-09-21 12:00] VITALS: BP 109/66
--- NOTE | 2019-09-21 13:00 | NUR ---
DR MEJIA IS HERE FOLLOWING UP ON PT
--- NOTE | 2019-09-21 14:28 | NUR ---
Nutrition Followup Notes Wt: 80.6 kg Unable to speak to pt d/t pt is positive for COVID. Pt is with a regular diet with adequate PO of 83% x 3 meals per RN doc. Will continue to monitor PO status, skin status, pertinent labs and weight trends. Will f/u in 3-5 days. Est Energy needs: 1041-1060 kcals (17-20 kcal/kgBW), Est Protein needs: 82-109 gms/day (1.5-2.0 gm/kgIBW). Will continue to monitor and reassess prn. LABS: ALB 3.1 L GI: Pt had 1 BM on 09/19 per RN doc BS: 18 mod risk. Refer to wound assessment report for full details. PES: Obesity aeb 161% IBW and BMI of 33.1 kg/m2 r/t energy intake in excess of energy needs Comments: Will folow up PO intake, skin status F/u mod 3-5 days Rec: 1) Continue to closely monitor pt PO intake to meet at least 75% of meals. 2) Continue current plan of care
[2019-09-21 16:59] VITALS: BP 118/68
--- NOTE | 2019-09-21 18:22 | NUR ---
PT IS SITTING UP EATING DINNER, NO DISTRESS NOTED, PT OCCASIONALLY TAKE THE OXYGEN MASK OFF SAT AT 84%, WHILE SHE IS EATING, CONTINUE MONITORING
--- NOTE | 2019-09-21 19:30 | NUR ---
Opening Shift Note Assumed care of patient, awake and alert. No S/S of distress/SOB or pain. Patient on 15L non rebreather. Safety measures in place bed in lowest position, side rails up x2, and call light within reach. Instructed on POC and to call for assist PRN, will continue to monitor for changes Q1hr and PRN.
[2019-09-21 22:00] VITALS: BP 115/75
--- NOTE | 2019-09-21 23:04 | NUR ---
RT NOTE PT WAS SEEN BY RT FOR MDI TX. PT TOLERATES ALBUTEROL WELL VIA SPACER. PT RINSED MOUTH POST PULMICORT INHALER. PT SATS 97% WHEN PRONE, BUT DROPPED TO 91% WHILE SUPINE TAKING HER INHALERS. PT TURNED BACK OVER TO PRONE POST TX. CONT ORDERED Addendum: 09/21/19 at 2306 by Nilda Abrams RT Amended: Links added.
[2019-09-22 05:55] VITALS: BP 107/65
[2019-09-22 07:01] LABS: Basophils # (auto) 0 10 ^3/uL (0-0.2); Eosinophils # (auto) 0.2 10 ^3/uL (0-0.8); Lymphocytes # (auto) 1.3 10 ^3/uL (0.4-5.4); Monocytes # (auto) 0.6 10 ^3/uL (0-1.3); Nucleated Red Blood Cells % 0.1 %; White Blood Cell 7.8 10^3/uL (4.4-10.8)
[2019-09-22 07:03] LABS: Basophils % (auto) 0.4 % (0.0-2.0); Eosinophils % (auto) 2.1 % (0.0-7.0); Hematocrit 46.2 % (36.0-46.0); Hemoglobin 15.4 g/dL (12.2-16.2); Lymphocytes % (auto) 16.7 % (10.0-50.0); Mean Corpuscular Hemoglobin 30.4 pg (28.0-32.0); Mean Corpuscular Hgb Conc. 33.2 g/dL (32.0-36.0); Mean Corpuscular Volume 91.4 fL (80.0-100.0); Monocytes % (auto) 7.2 % (0.0-12.0); Neutrophils # (auto) 5.8 10 ^3/uL (1.6-8.6); Neutrophils % (auto) 73.6 % (37.0-80.0); Platelet Count (auto) 486 10^3/uL (140-450); Red Blood Cells 5.06 10^6/uL (4.0-5.20)
[2019-09-22 07:16] LABS: Albumin 2.7 g/dL (3.4-5.0); Calcium 8.6 mg/dL (8.5-10.1); Potassium 3.9 mmol/L (3.5-5.1)
[2019-09-22 07:19] LABS: BUN/Creatinine Ratio 47.7; Bilirubin, Total 0.7 mg/dL (0.2-1.0); Total Protein 6.9 g/dL (6.4-8.2)
[2019-09-22] MEDS: ALBUTEROL SULF HFA 90MCG INH 200DOSE IN SCH ×3 (07:24→23:42)
[2019-09-22] MEDS: BUDESONIDE (INHALATION) 180 MCG IH IN SCH ×2 (07:24→23:42)
[2019-09-22 08:00] VITALS: BP 112/74
[2019-09-22] MEDS: FUROSEMIDE 40 MG/4 ML VIAL IV SCH (09:50)
[2019-09-22] MEDS: CHOLECALCIFEROL (VITD3) 2,000 UNIT CAP PO SCH (09:51)
[2019-09-22] MEDS: amLODIPine BESYLATE 5 MG TAB PO SCH (09:51)
[2019-09-22] MEDS: ASPirin-EC 81 mg tab PO SCH (09:52)
[2019-09-22] MEDS: FAMOTIDINE 20 MG TAB PO SCH ×2 (09:52→21:36)
[2019-09-22] MEDS: POTASSIUM CHL 20 Meq TABLET PO SCH (10:00)
[2019-09-22] MEDS ORDERED: DexAMETHasone 4 MG TAB PO SCH (10:00)
[2019-09-22] MEDS: ENOXAPARIN SOD 40 MG/0.4 ML SYRINGE SC SCH ×2 (10:00→21:36)
[2019-09-22] MEDS: ASCORBIC ACID 1,000 MG TAB PO SCH (10:00)
[2019-09-22 12:00] VITALS: BP 101/53
--- NOTE | 2019-09-22 12:45 | NUR ---
PROVIDER AT BEDSIDE
--- NOTE | 2019-09-22 13:47 | NUR ---
CARLOS ELIZABETH NOTIFIED PATRICIA [facility] IS OUT OF THIS MEDICATION. TECH WILL SENT UP SHORTLY.
[2019-09-22 17:00] VITALS: BP 99/72
--- NOTE | 2019-09-22 18:58 | NUR ---
ENDORSED CARE TO NIGHT RN.
--- NOTE | 2019-09-22 20:00 | NUR ---
Opening Shift Note Assumed care of patient, awake and alert. No S/S of distress/SOB or pain. Patient on 15l nonrebreather mask oxygen saturation 96%. Instructed on POC and to call for assist PRN, will continue to monitor for changes Q1hr and PRN. bed in low position and call light within reach.
[2019-09-22 21:39] VITALS: BP 113/58
[2019-09-23 04:48] VITALS: BP 121/71
--- NOTE | 2019-09-23 07:07 | NUR ---
patient oxygen in the low 70's patient removed nonrebreather mask. patient instructed to keep mask on has oxygen levels are low. patient verbalized understanding. oxygen saturation via nonrebreather reading at 92%. patient denies sob distress or pain
[2019-09-23] MEDS: ALBUTEROL SULF HFA 90MCG INH 200DOSE IN SCH ×3 (07:14→22:32)
[2019-09-23] MEDS: BUDESONIDE (INHALATION) 180 MCG IH IN SCH ×2 (07:15→22:32)
--- NOTE | 2019-09-23 07:26 | NUR ---
endorsed care to dayshift rn patient denies sob distress or pain. iv is intact and patent. bed in low position and call light within reach
--- NOTE | 2019-09-23 08:00 | NUR ---
Opening Shift Note Assumed care of patient, awake and alert. No S/S of distress/SOB or pain. Patient on 15L Oxymizer oxygen saturation 96%. Instructed on POC and to call for assist PRN, will continue to monitor for changes Q1hr and PRN. bed in low position and call light within reach.
[2019-09-23 09:00] VITALS: BP 122/75
[2019-09-23] MEDS: ASPirin-EC 81 mg tab PO SCH (10:00)
[2019-09-23] MEDS: FUROSEMIDE 40 MG/4 ML VIAL IV SCH (10:00)
[2019-09-23] MEDS: ENOXAPARIN SOD 40 MG/0.4 ML SYRINGE SC SCH ×2 (10:00→21:33)
[2019-09-23] MEDS: POTASSIUM CHL 20 Meq TABLET PO SCH (10:00)
[2019-09-23] MEDS: amLODIPine BESYLATE 5 MG TAB PO SCH (10:00)
[2019-09-23] MEDS: ASCORBIC ACID 1,000 MG TAB PO SCH (10:00)
[2019-09-23] MEDS: CHOLECALCIFEROL (VITD3) 2,000 UNIT CAP PO SCH (10:00)
[2019-09-23] MEDS: FAMOTIDINE 20 MG TAB PO SCH ×2 (10:00→21:33)
[2019-09-23 13:00] VITALS: BP 143/77
[2019-09-23 17:00] VITALS: BP 110/73
--- NOTE | 2019-09-23 19:09 | NUR ---
ENDORSED CARE TO NIGHT RN
--- NOTE | 2019-09-23 19:30 | NUR ---
Opening Shift Note Assumed care of patient, awake and alert. No S/S of distress/SOB or pain. Instructed on POC and to call for assist PRN, will continue to monitor for changes Q1hr and PRN. bed in low position call light within reach.
[2019-09-23 20:02] VITALS: BP 110/73
[2019-09-23 23:23] VITALS: BP 114/64
--- NOTE | 2019-09-24 00:24 | NUR ---
patient ambulated to bsc independently.
--- NOTE | 2019-09-24 02:29 | NUR ---
patient up and using bedside commode oxygen in the 70's low 80's via 15l oxymizer . patient returned back to bed. laying in prone position oxygen 94% via 15l Oxymizer. bed in low position and call light within reach. denies sob distress or pain.
[2019-09-24 05:00] VITALS: BP 112/73
--- NOTE | 2019-09-24 06:45 | NUR ---
patient rounds patient resting in bed. no signs of sob distress or pain call light within reach and bed in low position.
--- NOTE | 2019-09-24 07:05 | NUR ---
Endorsed care to dayshift RN. Patient denies sob distress or pain.
[2019-09-24] MEDS: BUDESONIDE (INHALATION) 180 MCG IH IN SCH ×2 (07:55→22:20)
[2019-09-24] MEDS: ALBUTEROL SULF HFA 90MCG INH 200DOSE IN SCH ×3 (07:55→22:20)
[2019-09-24 09:00] VITALS: BP 113/71
[2019-09-24] MEDS: POTASSIUM CHL 20 Meq TABLET PO SCH (09:52)
[2019-09-24] MEDS: ASCORBIC ACID 1,000 MG TAB PO SCH (09:52)
[2019-09-24] MEDS: CHOLECALCIFEROL (VITD3) 2,000 UNIT CAP PO SCH (09:55)
[2019-09-24] MEDS: ENOXAPARIN SOD 40 MG/0.4 ML SYRINGE SC SCH ×2 (09:56→22:12)
[2019-09-24] MEDS: ASPirin-EC 81 mg tab PO SCH (09:56)
[2019-09-24] MEDS: FUROSEMIDE 40 MG/4 ML VIAL IV SCH (09:59)
[2019-09-24] MEDS: FAMOTIDINE 20 MG TAB PO SCH ×2 (10:00→22:12)
[2019-09-24] MEDS: amLODIPine BESYLATE 5 MG TAB PO SCH (10:00)
[2019-09-24 13:00] VITALS: BP 95/65
--- NOTE | 2019-09-24 13:45 | NUR ---
NOTIFIED SLOAN BOOKER PATIENT COVID RESULTS ARE NEGATIVE
--- NOTE | 2019-09-24 15:09 | NUR ---
Nutrition Followup Notes Wt: 81.1 kg Pt is positive for COVID. Pt is with a Regular diet, appetite is fair aeb 70% PO intake over 5 meals per RN doc. Will continue to monitor PO status, skin status, pertinent labs and weight trends. Will f/u in 3-5 days. Est Energy needs: 0501-7948 kcals (17-20 kcal/kgBW), Est Protein needs: 82-109 gms/day (1.5-2.0 gm/kgIBW). Will continue to monitor and reassess prn. LABS: ALB 2.7 L GI: Pt had 1 BM on 09/21 per RN doc BS: 18 mod risk. Refer to wound assessment report for full details. PES: Obesity aeb 161% IBW and BMI of 33.1 kg/m2 r/t energy intake in excess of energy needs Comments: Will folow up PO intake, skin status F/u mod 3-5 days Rec: 1) Continue to closely monitor pt PO intake to meet at least 75% of meals. 2) Continue current plan of care
[2019-09-24 17:00] VITALS: BP 99/54
--- NOTE | 2019-09-24 19:35 | NUR ---
ENDORSED CARE TO NIGHT RN STILL NO BEDS AVAILABLE PATIENT WILL REMAIN IN CURRENT ROOM, NIGHT RN AWARE.
--- NOTE | 2019-09-24 19:45 | NUR ---
Opening Shift Note Assumed care of patient, awake and alert to self only. No S/S of distress/SOB or pain. Oxygen at 15 L/min via Oxymizer. Call light is within reach, side rails up x2, bed is in the lowest position. Instructed on POC and to call for assist PRN, will continue to monitor for changes Q1hr and PRN. Addendum: 09/25/19 at 0440 by MAURA SOLANO RN PATIENT IS ALERT AND ORIENTED X4, NOT TO SELF ONLY*
[2019-09-24 20:10] VITALS: BP 102/69
[2019-09-24 22:12] VITALS: BP 102/69
[2019-09-25 05:00] VITALS: BP 106/69
[2019-09-25] MEDS: HYDROcodone-ACET 5/325MG TAB PO PRN ×2 (05:10→22:19)
--- NOTE | 2019-09-25 05:11 | NUR ---
Patient is complaining of lower back pain 8/0-10, [facility] 5 administered for pain. Will reassess.
[2019-09-25] MEDS: BUDESONIDE (INHALATION) 180 MCG IH IN SCH ×2 (07:29→22:15)
[2019-09-25] MEDS: ALBUTEROL SULF HFA 90MCG INH 200DOSE IN SCH ×3 (07:29→22:15)
[2019-09-25 08:00] VITALS: BP 112/77
[2019-09-25 09:14] VITALS: BP 112/77
[2019-09-25] MEDS: ASPirin-EC 81 mg tab PO SCH (09:35)
[2019-09-25] MEDS: FAMOTIDINE 20 MG TAB PO SCH ×2 (09:36→22:19)
[2019-09-25] MEDS: ASCORBIC ACID 1,000 MG TAB PO SCH (09:36)
[2019-09-25] MEDS: amLODIPine BESYLATE 5 MG TAB PO SCH (09:36)
[2019-09-25] MEDS: CHOLECALCIFEROL (VITD3) 2,000 UNIT CAP PO SCH (09:36)
[2019-09-25] MEDS: ENOXAPARIN SOD 40 MG/0.4 ML SYRINGE SC SCH ×2 (09:37→22:20)
--- NOTE | 2019-09-25 10:35 | NUR ---
Covid swab Covid swab walked to lab
[2019-09-25 13:00] VITALS: BP 110/70
[2019-09-25 16:30] VITALS: BP 109/78
--- NOTE | 2019-09-25 19:35 | NUR ---
Opening Shift Note Assumed care of patient, awake and alert. No S/S of distress/SOB noted. Bed is in lowest locked position with bed rails up x2 and call light is within reach of the patient. Instructed on POC and to call for assist PRN.
[2019-09-26 05:00] VITALS: BP 109/73
[2019-09-26] MEDS: ALBUTEROL SULF HFA 90MCG INH 200DOSE IN SCH ×2 (07:43→14:55)
[2019-09-26] MEDS: BUDESONIDE (INHALATION) 180 MCG IH IN SCH (07:44)
[2019-09-26 08:00] VITALS: BP 126/78
[2019-09-26 08:56] VITALS: BP 126/78
[2019-09-26] MEDS: FAMOTIDINE 20 MG TAB PO SCH ×2 (09:42→21:41)
[2019-09-26] MEDS: ASCORBIC ACID 1,000 MG TAB PO SCH (09:42)
[2019-09-26] MEDS: amLODIPine BESYLATE 5 MG TAB PO SCH (09:42)
[2019-09-26] MEDS: CHOLECALCIFEROL (VITD3) 2,000 UNIT CAP PO SCH (09:43)
[2019-09-26] MEDS ORDERED: ENOXAPARIN SOD 80 MG/0.8ML SYRINGE SC SCH ×3 (10:00→22:00)
[2019-09-26] MEDS ORDERED: ASPirin 81 mg TAB PO SCH ×2 (10:00→14:15)
[2019-09-26 11:00] VITALS: BP 126/78
--- NOTE | 2019-09-26 12:30 | NUR ---
Dr Russell on unit
[2019-09-26 13:00] VITALS: BP 122/84
[2019-09-26] MEDS ORDERED: FLUTICASONE PROP NASAL SPR 0.05 % (50MCG) 16GM EACHNOSTRI ONE (14:15)
[2019-09-26 14:27] LABS: Potassium 3.7 mmol/L (3.5-5.1)
[2019-09-26 14:30] LABS: Basophils # (auto) 0 10 ^3/uL (0-0.2); Basophils % (auto) 0.3 % (0.0-2.0); Eosinophils # (auto) 0.2 10 ^3/uL (0-0.8); Eosinophils % (auto) 2.4 % (0.0-7.0); Hematocrit 44.6 % (36.0-46.0); Hemoglobin 14.9 g/dL (12.2-16.2); Lymphocytes # (auto) 1.3 10 ^3/uL (0.4-5.4); Lymphocytes % (auto) 18.5 % (10.0-50.0); Mean Corpuscular Hemoglobin 30.2 pg (28.0-32.0); Mean Corpuscular Hgb Conc. 33.4 g/dL (32.0-36.0); Mean Corpuscular Volume 90.5 fL (80.0-100.0); Monocytes # (auto) 0.8 10 ^3/uL (0-1.3); Monocytes % (auto) 11.8 % (0.0-12.0); Neutrophils # (auto) 4.7 10 ^3/uL (1.6-8.6); Nucleated Red Blood Cells % 0.2 %; Platelet Count (auto) 357 10^3/uL (140-450); Red Blood Cells 4.93 10^6/uL (4.0-5.20); Red Cell Distribution Width 13.7 % (11.8-14.3); White Blood Cell 7.1 10^3/uL (4.4-10.8)
--- NOTE | 2019-09-26 14:30 | NUR ---
Patient transferred to Room 201 with ADE Brown. Report given to Kevin on patient. Patient transferred via bed on . No signs of distress at time of transfer. All personal belongings moved with patient.
[2019-09-26] MEDS: FLUTICASONE PROP NASAL SPR 0.05 % (50MCG) 16GM EACHNOSTRI SCH ×2 (14:32→21:41)
[2019-09-26 14:35] LABS: Albumin 2.8 g/dL (3.4-5.0); BUN/Creatinine Ratio 25.4; Bilirubin, Total 0.6 mg/dL (0.2-1.0); Calcium 8.8 mg/dL (8.5-10.1); Total Protein 6.5 g/dL (6.4-8.2)
--- NOTE | 2019-09-26 15:38 | NUR ---
Respiratory note: Pt was transported to ROOM 201 by RN. Transported inhalers with pt to new room, placed at bedside. On 12lpm oxymizer, SPO2 93%.
[2019-09-26] MEDS ORDERED: IOHEXOL 350 MG/ML 100ML IJ ONE (15:59)
[2019-09-26] MEDS: BUDESONIDE (INHALATION) 0.5 MG/2 ML NEB NEB SCH (18:21)
[2019-09-26] MEDS: ALBUTEROL SULF 2.5 MG/0.5ML(0.5%) NEB SOLN NEB SCH (18:21)
--- NOTE | 2019-09-26 19:30 | NUR ---
Received report from the Day Shift RN. Brown. Pt. resting and sleeping. Pt. on simple mask continuous Per RT Protocol/RT Care. No s/s of pain. No s/s of facial grimacing.
--- NOTE | 2019-09-26 20:00 | NUR ---
Complete assessment done. Pt. calm and returned to sleep.
--- NOTE | 2019-09-26 21:41 | NUR ---
Meds.as scheduled given. Pt. made aware of the use of meds. Pt. is passive and not motivated to learn. Returned to sleep. Call-light @ the bedside. Keep HOB locked @ the low position and side rails up x 2 and keep pt. safe and sole stainer bed.
[2019-09-26 22:00] VITALS: BP 111/74
[2019-09-27] MEDS: ALBUTEROL SULF 2.5 MG/0.5ML(0.5%) NEB SOLN NEB SCH ×4 (00:22→18:54)
[2019-09-27] MEDS: HYDROcodone-ACET 5/325MG TAB PO PRN (00:29)
--- NOTE | 2019-09-27 00:29 | NUR ---
Pt. verb. back pain about 6/10 scale. Pt. given 1 tab. of [place] 5/325 mg. po. @ 0029 MN for moderate back pain.
--- NOTE | 2019-09-27 01:29 | NUR ---
Pt. looks calm and comfortable. No s/s of pain or discomfort. No s/s of facial grimacing, pt. asleep.
--- NOTE | 2019-09-27 04:00 | NUR ---
Pt. received RT Treatment per RT Care/Protocol.
[2019-09-27 05:00] VITALS: BP 125/79
--- NOTE | 2019-09-27 07:30 | NUR ---
Opening Shift Note Assumed care of patient, awake and alert. No S/S of distress/SOB or pain. Patient is now on a non rebreather at 15 L/min O2. Will obtained orders from doctor as needed. Instructed on POC and to call for assist PRN, will continue to monitor for changes Q1hr and PRN.
[2019-09-27] MEDS: BUDESONIDE (INHALATION) 0.5 MG/2 ML NEB NEB SCH ×2 (07:35→18:54)
--- NOTE | 2019-09-27 07:43 | NUR ---
RT NOTE: PT PLACED ONTO 15L NRB DUE TO SPO2 BEING BETWEEN 86-88% ON 10L SIMPLE MASK. SPO2 NOW 92%. WILL NOTIFY RN.
[2019-09-27 08:00] VITALS: BP 120/88
[2019-09-27 08:46] VITALS: BP 120/88
[2019-09-27] MEDS: CHOLECALCIFEROL (VITD3) 2,000 UNIT CAP PO SCH (10:00)
[2019-09-27] MEDS: FLUTICASONE PROP NASAL SPR 0.05 % (50MCG) 16GM EACHNOSTRI SCH ×2 (10:00→21:19)
[2019-09-27] MEDS: ASCORBIC ACID 1,000 MG TAB PO SCH (10:00)
[2019-09-27] MEDS ORDERED: DexAMETHasone 4 MG TAB PO ONE (10:30)
[2019-09-27] MEDS: ASPirin 81 mg TAB PO SCH (10:32)
[2019-09-27] MEDS: amLODIPine BESYLATE 5 MG TAB PO SCH (10:33)
[2019-09-27] MEDS: FAMOTIDINE 20 MG TAB PO SCH ×2 (10:33→21:19)
[2019-09-27] MEDS: ENOXAPARIN SOD 40 MG/0.4 ML SYRINGE SC SCH (10:43)
--- NOTE | 2019-09-27 10:43 | NUR ---
Nutrition Followup Notes Wt: 81.4 kg Pt latest covid test came back negative. Pt with respiratory mask at time of rounds. Pt unable to answer questions. Pt with a regular diet with fair intake aeb pt with 69% po intake avg x3 days per RN note of nutrition intake. Est Energy needs: 2174-3593 kcals (17-20 kcal/kgBW), Est Protein needs: 82-109 gms/day (1.5-2.0 gm/kgIBW). Will continue to monitor and reassess prn. LABS: Alb 2.8L GI: Pt had 1 BM on 09/25 per RN doc BS: 19 low risk. Refer to wound assessment report for full details. PES: Obesity aeb 161% IBW and BMI of 33.1 kg/m2 r/t energy intake in excess of energy needs Comments: Will folow up PO intake, skin status F/u mod 3-5 days Rec: 1) Continue to closely monitor pt PO intake to meet at least 75% of meals. 2) Continue current plan of care
[2019-09-27 12:48] VITALS: BP 104/66
[2019-09-27 16:50] VITALS: BP 110/68
[2019-09-27] MEDS: TEMAZEPAM 15 MG CAP PO PRN (21:18)
[2019-09-27] MEDS: DexAMETHasone 4 MG TAB PO SCH (21:19)
[2019-09-27 22:00] VITALS: BP 114/79
[2019-09-28] MEDS: ALBUTEROL SULF 2.5 MG/0.5ML(0.5%) NEB SOLN NEB SCH ×4 (02:42→18:20)
[2019-09-28 05:00] VITALS: BP 102/71
[2019-09-28] MEDS: BUDESONIDE (INHALATION) 0.5 MG/2 ML NEB NEB SCH ×2 (05:51→18:20)
--- NOTE | 2019-09-28 07:30 | NUR ---
Opening Shift Note Assumed care of patient, awake and alert. No S/S of distress. Patient is on 15L NRB with SPO2 reading at 93%. Insructed on POC and to callfor assist PRN, will continue to monitor for changes Q1hr and PRN. Bed is locked and in lowest position. Call light within reach.
[2019-09-28 08:00] VITALS: BP 103/63
[2019-09-28 09:00] VITALS: BP 103/63
[2019-09-28] MEDS ORDERED: ALPRAZolam 0.25 MG TAB PO ONE (09:30)
[2019-09-28] MEDS: ASPirin 81 mg TAB PO SCH (10:17)
[2019-09-28] MEDS: FAMOTIDINE 20 MG TAB PO SCH (10:17)
[2019-09-28] MEDS: DexAMETHasone 4 MG TAB PO SCH (10:18)
[2019-09-28] MEDS: ENOXAPARIN SOD 40 MG/0.4 ML SYRINGE SC SCH (10:19)
[2019-09-28] MEDS: amLODIPine BESYLATE 5 MG TAB PO SCH (10:20)
[2019-09-28] MEDS: FLUTICASONE PROP NASAL SPR 0.05 % (50MCG) 16GM EACHNOSTRI SCH (10:21)
[2019-09-28] MEDS ORDERED: SODIUM CHLORIDE 0.9 % NEB SOLN 3ML NEB ONE (10:45)
[2019-09-28 12:59] VITALS: BP 135/65
--- NOTE | 2019-09-28 13:00 | NUR ---
PATIENT PRONED, TOLERATED WELL WITH 15L NRB SPO2 AT 93%. WILL CONTINUE TO MONITOR PATIENT.
[2019-09-28 17:00] VITALS: BP 111/60
[2019-09-28 22:00] VITALS: BP 102/67
[2019-09-29] MEDS: ALBUTEROL SULF 2.5 MG/0.5ML(0.5%) NEB SOLN NEB SCH ×4 (00:11→18:53)
[2019-09-29] MEDS: FAMOTIDINE 20 MG TAB PO SCH ×3 (00:33→20:47)
[2019-09-29] MEDS: DexAMETHasone 4 MG TAB PO SCH ×3 (00:33→20:46)
[2019-09-29] MEDS: FLUTICASONE PROP NASAL SPR 0.05 % (50MCG) 16GM EACHNOSTRI SCH ×3 (00:33→10:22)
[2019-09-29 05:13] LABS: Basophils # (auto) 0.1 10 ^3/uL (0-0.2); Basophils % (auto) 0.8 % (0.0-2.0); Eosinophils # (auto) 0 10 ^3/uL (0-0.8); Hematocrit 40.3 % (36.0-46.0); Hemoglobin 13.2 g/dL (12.2-16.2); Lymphocytes # (auto) 1.1 10 ^3/uL (0.4-5.4); Lymphocytes % (auto) 8.8 % (10.0-50.0); Mean Corpuscular Hemoglobin 29.8 pg (28.0-32.0); Mean Corpuscular Hgb Conc. 32.6 g/dL (32.0-36.0); Mean Corpuscular Volume 91.5 fL (80.0-100.0); Monocytes # (auto) 0.6 10 ^3/uL (0-1.3); Monocytes % (auto) 4.4 % (0.0-12.0); Neutrophils # (auto) 11.1 10 ^3/uL (1.6-8.6); Platelet Count (auto) 258 10^3/uL (140-450); Red Blood Cells 4.41 10^6/uL (4.0-5.20); White Blood Cell 12.9 10^3/uL (4.4-10.8)
[2019-09-29 05:34] VITALS: BP 102/63
[2019-09-29 05:39] LABS: Potassium 3.9 mmol/L (3.5-5.1)
[2019-09-29 05:49] LABS: Albumin 2.9 g/dL (3.4-5.0); Bilirubin, Total 0.4 mg/dL (0.2-1.0); Calcium 8.3 mg/dL (8.5-10.1); Total Protein 6.2 g/dL (6.4-8.2)
[2019-09-29] MEDS: BUDESONIDE (INHALATION) 0.5 MG/2 ML NEB NEB SCH ×2 (06:26→18:53)
--- NOTE | 2019-09-29 08:07 | NUR ---
OPENING SHIFT NOTE: PATIENT RESTING IN BED, ON NON-REBREATHER. PATIENT A/OX4. NO C/O PAIN OR DISCOMFORT. UPDATED ON PLAN OF CARE. PATIENT HAS CALL LIGHT WITHIN REACH, FALL PRECAUTIONS IN PLACE. WILL CONTINUE TO MONITOR.
--- NOTE | 2019-09-29 08:50 | NUR ---
PHYSICAL THERAPY: PATIENT ABLE TO DO ACTIVE ROM. PATIENT NOT ABLE TO AMBULATE AT THIS TIME O2 SAT TO 85% WITH EXERTION.
[2019-09-29 09:00] VITALS: BP 122/63
[2019-09-29] MEDS: amLODIPine BESYLATE 5 MG TAB PO SCH (10:02)
[2019-09-29] MEDS: ENOXAPARIN SOD 40 MG/0.4 ML SYRINGE SC SCH (10:03)
[2019-09-29] MEDS: ASPirin 81 mg TAB PO SCH (10:03)
[2019-09-29] MEDS ORDERED: LORazepam 0.5 MG TAB PO PRN (10:30)
[2019-09-29 11:33] VITALS: BP 102/66
[2019-09-29] MEDS ORDERED: AZITHROMYCIN 250 MG TAB PO ONE (12:00)
[2019-09-29 13:00] VITALS: BP 123/61
[2019-09-29 17:00] VITALS: BP 117/70
--- NOTE | 2019-09-29 17:40 | NUR ---
CALL FROM FAMILY. Addendum: 09/29/19 at 1855 by GERARDO JOHNSTON RN RN BARTOLO URIBE. UPDATED ON PLAN OF CARE.
--- NOTE | 2019-09-29 18:55 | NUR ---
CARE ENDORSED TO NOC RN.
[2019-09-29] MEDS: ENOXAPARIN SOD 80 MG/0.8ML SYRINGE SC SCH (20:47)
[2019-09-29 22:00] VITALS: BP 110/59
[2019-09-30] MEDS: ALBUTEROL SULF 2.5 MG/0.5ML(0.5%) NEB SOLN NEB SCH ×4 (00:15→18:29)
[2019-09-30 05:00] VITALS: BP 110/54
[2019-09-30] MEDS: BUDESONIDE (INHALATION) 0.5 MG/2 ML NEB NEB SCH ×2 (06:04→18:29)
[2019-09-30 08:00] VITALS: BP 114/68
--- NOTE | 2019-09-30 08:30 | NUR ---
Opening Shift Note Assumed care of patient, awake, alert, and oriented. No S/S of distress. Patient is on 15L NRB with SPO2 reading at 93%. Instructed on POC and to call for assist PRN. Will continue to monitor for changes Q1hr and PRN. Bed is locked/ lowest position. Call light within reach.
[2019-09-30] MEDS: ENOXAPARIN SOD 80 MG/0.8ML SYRINGE SC SCH ×2 (09:45→21:39)
[2019-09-30] MEDS: FAMOTIDINE 20 MG TAB PO SCH ×2 (09:45→21:45)
[2019-09-30] MEDS: ASPirin 81 mg TAB PO SCH (09:45)
[2019-09-30] MEDS: amLODIPine BESYLATE 5 MG TAB PO SCH (09:45)
--- NOTE | 2019-09-30 09:45 | NUR ---
MD ROUNDS DR MEJIA AT BEDSIDE
[2019-09-30] MEDS: AZITHROMYCIN 250 MG TAB PO SCH (09:46)
[2019-09-30] MEDS: DexAMETHasone 4 MG TAB PO SCH (09:46)
[2019-09-30] MEDS: FLUTICASONE PROP NASAL SPR 0.05 % (50MCG) 16GM EACHNOSTRI SCH ×2 (09:46→22:00)
[2019-09-30 12:00] VITALS: BP 106/63
--- NOTE | 2019-09-30 13:19 | NUR ---
FAMILY DAUGHTER EMERY CALLED RE: PATIENT SAYING "SHE IS DROWSY FROM MEDICATIONS." UPDATED DAUGHTER ON PATIENT'S CURRENT MEDICATION ADMINISTRATION AND O2 ADMINISTRATION. INFORMED DAUGHTER THAT PATIENT COULD BE FEELING DROWSY A SIGN OF LOW OXYGEN. SPOKE WITH DR MEJIA RE: ISSUE. DR MEJIA AGREES WITH PATIENT'S OXYGEN LEVEL CAUSING DROWSINESS. NEW ORDERS RECEIVED/WILL CARRY OUT. WILL CONTINUE TO MONITOR
--- NOTE | 2019-09-30 14:01 | NUR ---
Nutrition Followup Notes Wt: 81.4 kg Pt was sleeping with no relatives when rounded this morning. Pt is with a regular diet with a poor intake aeb 25% po intake x6 meals per RN doc. If pt appetite continues to remain poor over the next 72 hours, consider supplemental nutrition support Ensure Enlive, 1 ctn bid. Will continue to monitor PO status, skin status, pertinent labs and weight trends. Will f/u in 3-5 days Est Energy needs: 3854-6145 kcals (17-20 kcal/kgBW), Est Protein needs: 82-109 gms/day (1.5-2.0 gm/kgIBW). Will continue to monitor and reassess prn. LABS: Alb 2.9L, Ca 8.3 L GI: Pt had 1 BM today per RN doc BS: 19 low risk. Refer to wound assessment report for full details. PES: Obesity aeb 161% IBW and BMI of 33.1 kg/m2 r/t energy intake in excess of energy needs Comments: Will continue to monitor PO intake, skin status and pertinent labs. F/u mod 3-5 days Rec: 1) Continue to closely monitor pt PO intake to meet at least 75% of meals. 2) If appetite remains poor over the next 72 hours, consider supplemental nutrition support Ensure Enlive 1 ctn bid 3) Continue current plan of care
[2019-09-30 16:00] VITALS: BP 119/71
[2019-09-30] MEDS: DexAMETHasone SOD PHOS 10MG/1ML VIAL INJ IV SCH (16:40)
--- NOTE | 2019-09-30 17:45 | NUR ---
BED BATH PARTIAL BED BATH PERFORMED, FULL LINEN CHANGED. PATIENT TOLERATED WELL. WILL CONTINUE TO MONITOR
--- NOTE | 2019-09-30 19:28 | NUR ---
Opening note Assumed care of patient, Patient is alert and orientated x4. [place] speaking, no sob or distress noted. Patient is on 15L non rebreather, saturation is 95%. POC reviewed, no questions at this time. Bed locked in lowest position, side rails up x2. Call light within reach, will continue to monitor.
[2019-09-30 21:29] VITALS: BP 113/81
[2019-09-30] MEDS: HYDROcodone-ACET 5/325MG TAB PO PRN (21:44)
--- NOTE | 2019-09-30 22:00 | NUR ---
pain Patient states pain 6/10. medicated with norco per md orders. Will reassess and continue to monitor.
[2019-10-01] MEDS: ALBUTEROL SULF 2.5 MG/0.5ML(0.5%) NEB SOLN NEB SCH ×4 (00:52→19:22)
--- NOTE | 2019-10-01 02:00 | NUR ---
ROUNDING Patient is asleep in bed. No sob or distress noted. Chest evenly rising. Patient still on 15L non rebreather. Saturation 96%. Will continue to monitor.
[2019-10-01] MEDS: DexAMETHasone SOD PHOS 10MG/1ML VIAL INJ IV SCH ×2 (04:08→16:12)
[2019-10-01 05:08] VITALS: BP 115/73
[2019-10-01] MEDS: BUDESONIDE (INHALATION) 0.5 MG/2 ML NEB NEB SCH ×2 (05:41→19:23)
--- NOTE | 2019-10-01 06:21 | NUR ---
spoke to family Spoke to daughter on phone, after password identified. gave update on patient, all questions answered. will continue to monitor.
--- NOTE | 2019-10-01 07:32 | NUR ---
Closing note endorsed care to day shift RN no distress noted.
[2019-10-01 08:52] VITALS: BP 118/78
[2019-10-01] MEDS: FLUTICASONE PROP NASAL SPR 0.05 % (50MCG) 16GM EACHNOSTRI SCH ×2 (10:00→21:14)
[2019-10-01] MEDS: AZITHROMYCIN 250 MG TAB PO SCH (10:34)
[2019-10-01] MEDS: ASPirin 81 mg TAB PO SCH (10:34)
[2019-10-01] MEDS: APIXABAN 5 MG TAB PO SCH ×2 (10:34→21:13)
[2019-10-01] MEDS: FAMOTIDINE 20 MG TAB PO SCH ×2 (10:34→21:14)
[2019-10-01] MEDS: amLODIPine BESYLATE 5 MG TAB PO SCH (10:35)
--- NOTE | 2019-10-01 11:14 | NUR ---
RT NOTE: PT. PLACED ON 12L OXYMIZER FROM A 15L NRB MASK. PT. APPEARS TO BE TOLERATING WELL. PT. HR 62, RR 24, 97%. RN JUDY ZUÑIGA.
[2019-10-01] MEDS ORDERED: D5W/SOD CHLO 0.9% 1,000 ML IV SCH (12:00)
[2019-10-01 12:21] VITALS: BP 133/71
[2019-10-01 16:49] VITALS: BP 128/76
--- NOTE | 2019-10-01 19:25 | NUR ---
Opening note Assumed care of patient, Patient is alert and orientated x4, No sob or distress noted, patient is on 12L oxymizer, saturation is 94%. bed locked in lowest position, side rails up x2. Call light within reach, will continue to monitor.
--- NOTE | 2019-10-01 19:26 | NUR ---
RT NOTE PT WAS SEEN BY RT FOR HHN TX. PT TOLERATES WELL VIA MASK. PT FOUND ON 12L OXYMIZER WITH SATS AT 90% NO SOB OR DISTRESS NOTED. CONT ORDERED Addendum: 10/01/19 at 1927 by Nilda Abrams RT Amended: Links added.
[2019-10-01 21:00] VITALS: BP 112/75
[2019-10-01] MEDS: HYDROcodone-ACET 5/325MG TAB PO PRN (23:10)
[2019-10-02] MEDS: ALBUTEROL SULF 2.5 MG/0.5ML(0.5%) NEB SOLN NEB SCH ×5 (00:13→23:46)
--- NOTE | 2019-10-02 00:23 | NUR ---
RT NOTE PT WAS SEEN BY RT FOR HHN TX. PT TOLERATES WELL VIA MASK. NO ADVERSE REACTION NOTED. PT WAS PRONE BEFORE TX STARTED. CONT ORDERED Addendum: 10/02/19 at 0315 by Nilda Abrams RT Amended: Links added.
--- NOTE | 2019-10-02 01:00 | NUR ---
rounding Patient is asleep no distress noted, chest evenly rising, oxygen saturation at 92% patient in prone position. will continue to monitor.
[2019-10-02] MEDS: DexAMETHasone SOD PHOS 10MG/1ML VIAL INJ IV SCH ×2 (03:51→15:03)
[2019-10-02 05:00] VITALS: BP 120/79
[2019-10-02 05:37] LABS: Basophils # (auto) 0.1 10 ^3/uL (0-0.2); Basophils % (auto) 0.6 % (0.0-2.0); Eosinophils # (auto) 0 10 ^3/uL (0-0.8); Eosinophils % (auto) 0.2 % (0.0-7.0); Hematocrit 39.8 % (36.0-46.0); Lymphocytes # (auto) 1.3 10 ^3/uL (0.4-5.4); Lymphocytes % (auto) 10.6 % (10.0-50.0); Mean Corpuscular Hemoglobin 30.3 pg (28.0-32.0); Mean Corpuscular Hgb Conc. 32.7 g/dL (32.0-36.0); Mean Corpuscular Volume 92.7 fL (80.0-100.0); Monocytes # (auto) 0.9 10 ^3/uL (0-1.3); Monocytes % (auto) 7.3 % (0.0-12.0); Neutrophils # (auto) 10.1 10 ^3/uL (1.6-8.6); Neutrophils % (auto) 81.3 % (37.0-80.0); Nucleated Red Blood Cells % 0.2 %; Platelet Count (auto) 202 10^3/uL (140-450); Red Blood Cells 4.29 10^6/uL (4.0-5.20); Red Cell Distribution Width 13.9 % (11.8-14.3); White Blood Cell 12.4 10^3/uL (4.4-10.8)
[2019-10-02 05:52] LABS: Potassium 3.8 mmol/L (3.5-5.1)
[2019-10-02 05:55] LABS: BUN/Creatinine Ratio 31.4; Calcium 8.4 mg/dL (8.5-10.1)
[2019-10-02] MEDS: BUDESONIDE (INHALATION) 0.5 MG/2 ML NEB NEB SCH ×2 (06:39→18:31)
--- NOTE | 2019-10-02 07:00 | NUR ---
Closing note Endorsed care to day shift RN. No distress noted.
[2019-10-02 09:00] VITALS: BP 128/65
[2019-10-02] MEDS: FLUTICASONE PROP NASAL SPR 0.05 % (50MCG) 16GM EACHNOSTRI SCH ×2 (09:30→21:21)
[2019-10-02] MEDS: APIXABAN 5 MG TAB PO SCH ×2 (09:30→21:21)
[2019-10-02] MEDS: AZITHROMYCIN 250 MG TAB PO SCH (09:31)
[2019-10-02] MEDS: amLODIPine BESYLATE 5 MG TAB PO SCH (09:31)
[2019-10-02] MEDS: FAMOTIDINE 20 MG TAB PO SCH ×2 (09:31→21:21)
[2019-10-02] MEDS: ASPirin 81 mg TAB PO SCH (09:31)
--- NOTE | 2019-10-02 09:58 | NUR ---
WOUND CARE NOTE: Wound care in to see patient per wound care request regarding "Left Buttock" skin integrity issue that are noted by bedside nurse upon assessment. Bedside nurse took photograph of patient's skin issue upon discovery for reference. Patient is 64 years old female with admitting diagnosis of Viral Pneumonia, CoVid 19 Positive. Patient is resting in bed in Rm. 201A. Patient is awake, alert and oriented. Patient is in no stated pain at this time. She's ambulatory to bathroom with assist and self turning and repositioning. Her Migel score is 19. Skin assessment done with the assistance of patient's nurse, ADE Yanez. Patient's Lt gluteal noted with two open partial thickness skin tear measuring 0.8x1.2cm and 0.5x1cm. Skin tears are red, dry, with bright red, blanchable ele wound. Patient does not remember how long she has had the L gluteal wound. Ele care given, applied Z Guard cream and covered with Opti foam gentle dressing. Patient tolerated well, repositioned for comfort facing her Rt side, redistributed pressure points with pillows. Patient skin/wound care education provided, emphasizing the importance of frequent turning, repositioning in shifting weights,patient verbalized understanding. ADE Yanez at bedside. RECOMMENDATION: Nursing to continue with BID/PRN dressing change to L gluteal wounds per MD order, redistribute pressure points with pillows, elevate heels on pillows, continue monitoring by wound care while patient is hospitalized. Addendum: 10/02/19 at 1407 by Iris Pichardo RN Amended: Links added.
--- NOTE | 2019-10-02 12:30 | NUR ---
FOUND PT. ON 13LPM OXYMIZER, DECREASED TO 12LPM OXYMIZER , SP02 93%. Addendum: 10/02/19 at 1232 by Belen Torres RT Amended: Links added.
[2019-10-02 13:00] VITALS: BP 101/61
[2019-10-02] MEDS: HYDROcodone-ACET 5/325MG TAB PO PRN (15:03)
[2019-10-02 16:01] VITALS: BP 101/61
[2019-10-02 16:57] VITALS: BP 110/66
--- NOTE | 2019-10-02 18:41 | NUR ---
AT BEDSIDE FOR MED NEB TX, SPO2 NOTED AT 87% ON 8L OXYMIZER. INCREASED OXYGEN TO 10L OXYMIZER. SPO2 NOTED AT 96% POST MED NEB, WILL TITRATED TOLERATED.
--- NOTE | 2019-10-02 19:30 | NUR ---
Opening Shift Note Assumed care of patient, awake and alert. No complains of pain, patient on 12 LPM oxymizer, Oxygen saturation of 92%. Instructed on POC and to call for assist PRN, will continue to monitor for changes Q1hr and PRN.
[2019-10-02 21:31] VITALS: BP 121/78
--- NOTE | 2019-10-03 02:20 | NUR ---
AT BEDSIDE, PT CONNECTED TO DINAMAP MONITOR, SPO2 NOTED AT 85%. OXYMIZER FLOW INCREASED TO 12L, SPO2 INCREASED TO 92%. PT SLEEPING AT THIS TIME, WILL CONTINUE TO MONITOR.
[2019-10-03] MEDS: DexAMETHasone SOD PHOS 10MG/1ML VIAL INJ IV SCH (04:03)
[2019-10-03 05:10] VITALS: BP 125/68
[2019-10-03] MEDS: ALBUTEROL SULF 2.5 MG/0.5ML(0.5%) NEB SOLN NEB SCH ×3 (06:19→18:52)
[2019-10-03] MEDS: BUDESONIDE (INHALATION) 0.5 MG/2 ML NEB NEB SCH ×2 (06:19→18:52)
[2019-10-03 08:57] VITALS: BP 126/66
[2019-10-03] MEDS: ASPirin 81 mg TAB PO SCH (09:21)
[2019-10-03] MEDS: APIXABAN 5 MG TAB PO SCH ×2 (09:21→21:31)
[2019-10-03] MEDS: FAMOTIDINE 20 MG TAB PO SCH ×2 (09:21→21:31)
[2019-10-03] MEDS: FLUTICASONE PROP NASAL SPR 0.05 % (50MCG) 16GM EACHNOSTRI SCH ×2 (09:21→21:32)
[2019-10-03] MEDS: AZITHROMYCIN 250 MG TAB PO SCH (09:21)
[2019-10-03] MEDS: amLODIPine BESYLATE 5 MG TAB PO SCH (09:21)
[2019-10-03 13:00] VITALS: BP 121/76
--- NOTE | 2019-10-03 14:54 | NUR ---
Nutrition Followup Notes Wt: 83.3 kg Pt was sleeping with no relatives when rounded this morning. Pt is with a regular diet with adequte PO of 100% x 4 per RN doc. pt with viral PNA Est Energy needs: 7760-4708 kcals (17-20 kcal/kgBW), Est Protein needs: 82-109 gms/day (1.5-2.0 gm/kgIBW). Will continue to monitor and reassess prn. LABS: CA 8.4 L ALB 2.9 L GI: Pt had 1 BM today per RN doc BS: 17 mod risk. Refer to wound assessment report for full details. PES: Obesity aeb 161% IBW and BMI of 33.1 kg/m2 r/t energy intake in excess of energy needs Comments: Will continue to monitor PO intake, skin status and pertinent labs. F/u mod 3-5 days Rec: 1) Continue to closely monitor pt PO intake to meet at least 75% of meals. 2) If appetite is poor, consider supplemental nutrition support Ensure Enlive 1 ctn bid 3) Continue current plan of care
[2019-10-03 17:00] VITALS: BP 119/79
--- NOTE | 2019-10-03 19:35 | NUR ---
Opening Shift Note Assumed care of patient, awake and alert. No complains of pain, patient on 10 LPM oxymizer, Oxygen saturation of 96%. Instructed on POC and to call for assist PRN, will continue to monitor for changes Q1hr and PRN.
[2019-10-03 21:35] VITALS: BP 122/74
--- NOTE | 2019-10-04 00:54 | NUR ---
RT NOTE: PT REQUESTING TO HOLD TX UNTIL MORNING ROUNDS. PT ON 10LPM OXYMIZER SPO2 97% WITH NO DISTRESS. TITRATED DOWN TO 8LPM SPO2 95%
[2019-10-04] MEDS: HYDROcodone-ACET 5/325MG TAB PO PRN ×2 (02:39→23:34)
[2019-10-04 05:00] VITALS: BP 136/75
[2019-10-04] MEDS: ALBUTEROL SULF 2.5 MG/0.5ML(0.5%) NEB SOLN NEB SCH ×4 (06:53→18:27)
[2019-10-04] MEDS: BUDESONIDE (INHALATION) 0.5 MG/2 ML NEB NEB SCH ×2 (06:53→18:28)
--- NOTE | 2019-10-04 07:30 | NUR ---
Opening Shift Note Assumed care of patient, awake, alert, and oriented. No S/S of distress/SOB or pain. Bed in lowest/locked position, bed rails up x2, call light within reach. Instructed on POC and to call for assist PRN. Will continue to monitor for changes Q1hr and PRN.
[2019-10-04 08:37] VITALS: BP 117/72
--- NOTE | 2019-10-04 09:20 | NUR ---
ROUNDS DR COVINGTON AT BEDSIDE DISCUSSING POC WITH PATIENT. NO NEW ORDERS RECEIVED AT THIS TIME. WILLL CONTINUE TO MONITOR
[2019-10-04] MEDS: ASPirin 81 mg TAB PO SCH (09:27)
[2019-10-04] MEDS: FAMOTIDINE 20 MG TAB PO SCH ×2 (09:27→22:06)
[2019-10-04] MEDS: DexAMETHasone 4 MG TAB PO SCH (09:28)
[2019-10-04] MEDS: FLUTICASONE PROP NASAL SPR 0.05 % (50MCG) 16GM EACHNOSTRI SCH ×2 (09:28→22:06)
[2019-10-04] MEDS: APIXABAN 5 MG TAB PO SCH ×2 (09:28→22:06)
[2019-10-04] MEDS: AZITHROMYCIN 250 MG TAB PO SCH (09:28)
[2019-10-04] MEDS: amLODIPine BESYLATE 5 MG TAB PO SCH (09:29)
[2019-10-04] MEDS ORDERED: LACTULOSE 20Gm/30ML SOLN PO ONE (09:45)
[2019-10-04] MEDS: LACTULOSE 20Gm/30ML SOLN PO SCH ×2 (11:51→16:46)
[2019-10-04 13:00] VITALS: BP 110/73
--- NOTE | 2019-10-04 16:41 | NUR ---
BOWEL MOVEMENT PATIENT ON BEDSIDE COMMODE. LARGE SOFT BROWN BM. PATIENT O2 SAT 83-86%. ASSISTED PATIENT TO BED, RT AT BEDSIDE ASSESSING PATIENT, O2 INCREASED TO 14L OXYMIZER. PATIENT O2 SAT INCREASED TO 92%. PATIENT NOW RESTING IN BED COMFORTABLY. WILL CONTINUE TO MONITOR
[2019-10-04 16:53] VITALS: BP 117/62
--- NOTE | 2019-10-04 19:20 | NUR ---
Opening Shift Note Received report from Esme BOOKER. Assumed care of patient, awake and alert. No S/S of distress/SOB or pain. Instructed on POC and to call for assist PRN. Fall precaution measures in place, will continue to monitor for changes Q1hr and PRN.
[2019-10-04 21:44] VITALS: BP 120/81
[2019-10-05] MEDS: ALBUTEROL SULF 2.5 MG/0.5ML(0.5%) NEB SOLN NEB SCH ×4 (00:12→19:03)
[2019-10-05 05:00] VITALS: BP 115/77
[2019-10-05] MEDS: LACTULOSE 20Gm/30ML SOLN PO SCH ×2 (05:51)
--- NOTE | 2019-10-05 05:53 | NUR ---
Patient oxygen decreased to 8LPM via Oxymizer, sating at 93% tolerated well.
[2019-10-05] MEDS: BUDESONIDE (INHALATION) 0.5 MG/2 ML NEB NEB SCH ×2 (06:09→19:03)
[2019-10-05 08:53] VITALS: BP 115/77
[2019-10-05 09:00] VITALS: BP 125/91
[2019-10-05] MEDS: DexAMETHasone 4 MG TAB PO SCH (09:32)
[2019-10-05] MEDS: ASPirin 81 mg TAB PO SCH (09:32)
[2019-10-05] MEDS: APIXABAN 5 MG TAB PO SCH ×2 (09:32→21:28)
[2019-10-05] MEDS: AZITHROMYCIN 250 MG TAB PO SCH (09:32)
[2019-10-05] MEDS: FAMOTIDINE 20 MG TAB PO SCH ×2 (09:32→21:28)
[2019-10-05] MEDS: FLUTICASONE PROP NASAL SPR 0.05 % (50MCG) 16GM EACHNOSTRI SCH ×2 (09:32→21:28)
[2019-10-05] MEDS: amLODIPine BESYLATE 5 MG TAB PO SCH (09:32)
[2019-10-05 13:00] VITALS: BP 122/77
[2019-10-05 17:00] VITALS: BP 128/65
--- NOTE | 2019-10-05 19:07 | NUR ---
AT BEDSIDE FOR MED NEB TX. PT TOLERATING TX WELL VIA MASK.
--- NOTE | 2019-10-05 19:15 | NUR ---
Opening Shift Note Received report from Esme BOOKER. Assumed care of patient, awake and alert. No S/S of distress/SOB or pain. Instructed on POC and to call for assist PRN. Fall precaution measures in place. Will continue to monitor for changes Q1hr and PRN.
[2019-10-05 21:11] VITALS: BP 115/74
[2019-10-06] MEDS: ALBUTEROL SULF 2.5 MG/0.5ML(0.5%) NEB SOLN NEB SCH ×4 (00:59→18:40)
[2019-10-06 05:36] VITALS: BP 120/78
[2019-10-06] MEDS: BUDESONIDE (INHALATION) 0.5 MG/2 ML NEB NEB SCH ×2 (06:09→18:40)
--- NOTE | 2019-10-06 06:18 | NUR ---
Patient's oxygen on 7lpm via Oxymizer sating at 95%, tolerating well.
--- NOTE | 2019-10-06 07:40 | NUR ---
Opening Shift Note Assumed care of patient, awake and alert. No S/S of distress/SOB or pain. Instructed on POC and to call for assist PRN, will continue to monitor for changes Q1hr and PRN. Bed locked in lowest position with two side rails up and call light in reach.
[2019-10-06 08:00] VITALS: BP 113/79
[2019-10-06] MEDS: HYDROcodone-ACET 5/325MG TAB PO PRN (08:41)
[2019-10-06 09:00] VITALS: BP 113/79
--- NOTE | 2019-10-06 09:30 | NUR ---
RN requested PT tx later due to decreased O2 saturation. Addendum: 10/06/19 at 1339 by Chino Cervantes PTA Amended: Links added.
[2019-10-06] MEDS: APIXABAN 5 MG TAB PO SCH ×2 (10:17→22:24)
[2019-10-06] MEDS: AZITHROMYCIN 250 MG TAB PO SCH (10:17)
[2019-10-06] MEDS: FLUTICASONE PROP NASAL SPR 0.05 % (50MCG) 16GM EACHNOSTRI SCH ×2 (10:17→22:25)
[2019-10-06] MEDS: ASPirin 81 mg TAB PO SCH (10:17)
[2019-10-06] MEDS: FAMOTIDINE 20 MG TAB PO SCH ×2 (10:17→22:24)
[2019-10-06] MEDS: DexAMETHasone 4 MG TAB PO SCH (10:18)
[2019-10-06] MEDS: amLODIPine BESYLATE 5 MG TAB PO SCH (10:18)
--- NOTE | 2019-10-06 11:01 | NUR ---
Nutrition Followup Notes Wt: 83.7 kg Pt was sleeping with no relatives when rounded this morning. Pt is with a regular diet with adequate PO of 75% x 4 per RN doc. pt with viral PNA Est Energy needs: 1426-1131 kcals (17-20 kcal/kgBW), Est Protein needs: 82-109 gms/day (1.5-2.0 gm/kgIBW). Will continue to monitor and reassess prn. LABS: no new albs today 10/01: CA 8.4 L ALB 2.9 L GI: Pt had 1 BM 10/02 per RN doc BS: 20 low risk. Refer to wound assessment report for full details. PES: Obesity aeb 161% IBW and BMI of 33.1 kg/m2 r/t energy intake in excess of energy needs Comments: Will continue to monitor PO intake, skin status and pertinent labs. F/u mod 3-5 days Rec: 1) Continue to closely monitor pt PO intake to meet at least 75% of meals. 2) If appetite is poor, consider supplemental nutrition support Ensure Enlive 1 ctn bid 3) Continue current plan of care
[2019-10-06 13:00] VITALS: BP 124/55
[2019-10-06 13:52] LABS: Basophils # (auto) 0.1 10 ^3/uL (0-0.2); Basophils % (auto) 1.1 % (0.0-2.0); Eosinophils # (auto) 0.4 10 ^3/uL (0-0.8); Eosinophils % (auto) 4.9 % (0.0-7.0); Hematocrit 41.9 % (36.0-46.0); Hemoglobin 13.5 g/dL (12.2-16.2); Lymphocytes # (auto) 0.8 10 ^3/uL (0.4-5.4); Lymphocytes % (auto) 10.7 % (10.0-50.0); Mean Corpuscular Hemoglobin 29.9 pg (28.0-32.0); Mean Corpuscular Hgb Conc. 32.3 g/dL (32.0-36.0); Mean Corpuscular Volume 92.5 fL (80.0-100.0); Monocytes # (auto) 0.6 10 ^3/uL (0-1.3); Monocytes % (auto) 7.2 % (0.0-12.0); Neutrophils # (auto) 5.9 10 ^3/uL (1.6-8.6); Neutrophils % (auto) 76.1 % (37.0-80.0); Nucleated Red Blood Cells % 0.1 %; Platelet Count (auto) 185 10^3/uL (140-450); Red Blood Cells 4.52 10^6/uL (4.0-5.20); Red Cell Distribution Width 14.9 % (11.8-14.3); White Blood Cell 7.8 10^3/uL (4.4-10.8)
[2019-10-06 14:16] LABS: Calcium 8.3 mg/dL (8.5-10.1); Potassium 3.8 mmol/L (3.5-5.1)
[2019-10-06 14:19] LABS: BUN/Creatinine Ratio 25.8
[2019-10-06 14:22] LABS: Bilirubin, Total 0.5 mg/dL (0.2-1.0); Total Protein 6.3 g/dL (6.4-8.2)
--- NOTE | 2019-10-06 15:21 | NUR ---
PATIENT TO THE BEDSIDE CHAIR. O2 SATURATION DECREASES TO 78-88 ON 9 L OXYMIZER PATIENT UNABLE TO AMBULATE WITHOUT HAVING A SIGNIFICANT DROP IN SATURATION, PATIENT HAVING LABORED BREATHING AND COUGHING. ASSISTED PATIENT BACK TO BED O2 LOWERED TO 7L OXYMIZER.
[2019-10-06 17:00] VITALS: BP 116/79
--- NOTE | 2019-10-06 18:40 | NUR ---
Respiratory note: AT BEDSIDE FOR MED NEB TX. PT TOLERATING WELL, FOUND PT ON 6LPM OXYMIZER. POX 94-95%, HR 100S, RR 20S. PT NOTED TO BE BREATHING A LITTLE DEEPER AND FASTER THAN NORMAL, ASKED PT IF SHE IS IN PAIN SHE STATED NO. SHE JUST LIKES TO BREATHE LIKE THIS ON TREATMENT, INSTRUCTED PT ON PROPER TECHNIQUE FOR MED NEBS. PT SLOWED DOWN HER BREATHING WITH EDUCATION. WILL CONTINUE TO MONITOR, NEXT MED NEB TX DUE IS AT 0000.
[2019-10-06 22:00] VITALS: BP 118/85
[2019-10-07] MEDS: ALBUTEROL SULF 2.5 MG/0.5ML(0.5%) NEB SOLN NEB SCH ×4 (05:28→19:11)
[2019-10-07] MEDS: BUDESONIDE (INHALATION) 0.5 MG/2 ML NEB NEB SCH ×2 (05:29→19:12)
[2019-10-07 06:05] VITALS: BP 123/74
--- NOTE | 2019-10-07 07:15 | NUR ---
Opening Shift Note Assumed care of patient, awake and alert. No S/S of distress/SOB or pain. On 6L O2 via Oxymizer with O2 saturations at 92%. Bed is low, locked with 2x side rails up. Call light is within reach. Instructed on POC and to call for assist PRN, will continue to monitor for changes Q1hr and PRN.
--- NOTE | 2019-10-07 07:20 | NUR ---
IV removal (R) AC. IV DC'd with clean sterile technique, catheter fully intact. Pressure dressing applied to site. Patient tolerated well.
[2019-10-07 09:00] VITALS: BP 116/76
--- NOTE | 2019-10-07 09:10 | NUR ---
IV insertion IV access obtained by charge nurse Arthur, via clean sterile technique by inserting gauge catheter at the right FA after 1 attempt(s). IV secured properly. No trauma to site. Patient tolerated well.
[2019-10-07] MEDS: ASPirin 81 mg TAB PO SCH (09:24)
[2019-10-07] MEDS: AZITHROMYCIN 250 MG TAB PO SCH (09:24)
[2019-10-07] MEDS: FAMOTIDINE 20 MG TAB PO SCH ×2 (09:24→21:48)
[2019-10-07] MEDS: APIXABAN 5 MG TAB PO SCH ×2 (09:24→21:48)
[2019-10-07] MEDS: amLODIPine BESYLATE 5 MG TAB PO SCH (09:25)
[2019-10-07] MEDS: DexAMETHasone 4 MG TAB PO SCH (09:26)
[2019-10-07] MEDS: FLUTICASONE PROP NASAL SPR 0.05 % (50MCG) 16GM EACHNOSTRI SCH ×2 (09:28→22:00)
[2019-10-07] MEDS: HYDROcodone-ACET 5/325MG TAB PO PRN (09:56)
--- NOTE | 2019-10-07 09:56 | NUR ---
Dr. Russell rounding Dr. Russell is at bedside discussing POC with patient. No new orders received at this time.
[2019-10-07] MEDS ORDERED: POTASSIUM CHL 10 Meq TABLET PO ONE (11:45)
[2019-10-07] MEDS ORDERED: FUROSEMIDE 20 MG/2 ML VIAL IV ONE (11:45)
[2019-10-07 13:00] VITALS: BP 124/73
[2019-10-07 16:47] VITALS: BP 123/76
--- NOTE | 2019-10-07 21:05 | NUR ---
1900. REPORT OBTAINED ON PATIENT. 1909. PATIENT SEEN IN HER ROOM. LYING IN A SEMI-WILLIS POSITION. SUPINE. DENIED PAIN. O2 LUNGS ARE CLEAR. PATIENT NOT IN DISTRESS. SET A 6L FLOWING VIA AN OXIMIZER.
[2019-10-07 22:00] VITALS: BP 150/78
--- NOTE | 2019-10-07 23:04 | NUR ---
2200 SAT OUT OF BED FOR 50 MINUTES. ENCOURAGED TO CALL WHEN WALKING TO THE BATHROOM.
[2019-10-08] MEDS: ALBUTEROL SULF 2.5 MG/0.5ML(0.5%) NEB SOLN NEB SCH ×4 (00:38→18:51)
[2019-10-08 06:00] VITALS: BP 124/80
[2019-10-08] MEDS: BUDESONIDE (INHALATION) 0.5 MG/2 ML NEB NEB SCH ×2 (06:29→18:51)
--- NOTE | 2019-10-08 08:00 | NUR ---
Opening Shift Note Assumed care of patient, awake, alert and oriented X4. No S/S of distress/SOB or pain. O2 @ 5 LPM via nasal cannula with sats @ 96%. IV to right forearm, 22 gauge, patent and saline locked. Instructed on POC and to call for assist PRN, verbalized understanding. Bed locked, in lowest position, call light within reach, will continue to monitor for changes Q1hr and PRN.
[2019-10-08 09:00] VITALS: BP 129/82
[2019-10-08] MEDS ORDERED: DexAMETHasone 4 MG TAB PO SCH (10:00)
[2019-10-08] MEDS: ASPirin 81 mg TAB PO SCH (10:05)
[2019-10-08] MEDS: FLUTICASONE PROP NASAL SPR 0.05 % (50MCG) 16GM EACHNOSTRI SCH ×2 (10:05→21:40)
[2019-10-08] MEDS: APIXABAN 5 MG TAB PO SCH ×2 (10:06→21:41)
[2019-10-08] MEDS: FAMOTIDINE 20 MG TAB PO SCH ×2 (10:10→21:41)
[2019-10-08] MEDS: AZITHROMYCIN 250 MG TAB PO SCH (10:10)
[2019-10-08] MEDS: amLODIPine BESYLATE 5 MG TAB PO SCH (10:10)
[2019-10-08 11:08] VITALS: BP 129/82
[2019-10-08 13:00] VITALS: BP 107/77
--- NOTE | 2019-10-08 14:51 | NUR ---
Nutrition Consult/Followup Notes Wt: 83.0 kg Pt was sleeping when rounded this morning. Pt is with a Regular diet with adequate PO of ave 88% x 4 meals per RN doc. Pt with viral PNA. Per records Pt eating fine with no distress. Will continue to monitor PO status, skin status, pertinent labs and weight trends. Will f/u in 3-5 days. Est Energy needs: 0049-3786 kcals (17-20 kcal/kgBW), Est Protein needs: 82-109 gms/day (1.5-2.0 gm/kgIBW). Will continue to monitor and reassess prn. LABS: CA 8.3 L ALB 3.0 L GI: Pt had 3 BMs on 10/06 per RN doc BS: 17 mod risk. Refer to wound assessment report for full details. PES: Obesity aeb 161% IBW and BMI of 33.1 kg/m2 r/t energy intake in excess of energy needs Comments: Will continue to monitor PO intake, skin status and pertinent labs. F/u mod 3-5 days Rec: 1) Continue to closely monitor pt PO intake to meet at least 75% of meals. 2) If appetite is poor, consider supplemental nutrition support Ensure Enlive 1 ctn bid 3) Continue current plan of care
[2019-10-08 17:11] VITALS: BP 139/92
--- NOTE | 2019-10-08 18:53 | NUR ---
RT NOTE PT WAS SEEN BY RT FOR HHN TX. PT TOLERATES WELL VIA MASK. NO ADVERSE REACTION NOTED. PT IS ON 4L OXYMIZER AND APPEARD TO TOLERATE WELL. CONT ORDERED Addendum: 10/08/19 at 1854 by Nilda Abrams RT Amended: Links added.
--- NOTE | 2019-10-08 19:02 | NUR ---
Care endorsed to ADE Meeks, night nurse.
--- NOTE | 2019-10-08 19:26 | NUR ---
190. RECEIVED REPORT ON PATIENT. 1914. PATIENT SEEN. SITTING ON A CHAIR. ALERT. AFEBRILE. NOT IN PAINS. BREATHING EVEN AND UNLABORED. HAS CRACKLES POSTERIOR LUNG MONTENEGRO. NO COUGHING. IV SITE CLEAR AND DRY. SALINE LOCKED. PATENT.
[2019-10-08 22:00] VITALS: BP 125/84
[2019-10-08] MEDS: TEMAZEPAM 15 MG CAP PO PRN (22:29)
[2019-10-08] MEDS: HYDROcodone-ACET 5/325MG TAB PO PRN (22:29)
--- NOTE | 2019-10-08 23:11 | NUR ---
2229. MEDICATED FOR BACK PAIN.
[2019-10-09] MEDS: ALBUTEROL SULF 2.5 MG/0.5ML(0.5%) NEB SOLN NEB SCH ×4 (00:44→18:27)
--- NOTE | 2019-10-09 00:47 | NUR ---
RT NOTE PT WAS SEEN BY RT FOR HHN TX. PT TOLERATES WELL VIA MASK. NO ADVERSE REACTION NOTED. CONT ORDERED Addendum: 10/09/19 at 0048 by Nilda Abrams RT Amended: Links added.
[2019-10-09 05:00] VITALS: BP 119/69
[2019-10-09] MEDS: BUDESONIDE (INHALATION) 0.5 MG/2 ML NEB NEB SCH ×2 (06:52→18:27)
--- NOTE | 2019-10-09 07:25 | NUR ---
0700. PATIENT ENDORSED TO JULIE. BOOKER.
--- NOTE | 2019-10-09 08:00 | NUR ---
Opening Shift Note Assumed care of patient, awake, alert and oriented X4. No S/S of distress/SOB or pain. O2 @ 4LPM via oxymiser with sats @ 94%. IV to right forearm, 22 gauge, patent and saline locked. Instructed on POC and to call for assist PRN, verbalized understanding. Bed locked, in lowest position, call light within reach, will continue to monitor for changes Q1hr and PRN.
[2019-10-09 09:00] VITALS: BP 119/72
[2019-10-09] MEDS ORDERED: ALBUAER3 IN (09:58)
[2019-10-09] MEDS ORDERED: CHOL20007 PO (09:58)
[2019-10-09] MEDS ORDERED: POTA1TAB61 PO (09:58)
[2019-10-09] MEDS ORDERED: ASCO500T11 PO (09:58)
[2019-10-09] MEDS ORDERED: FURO20TA3 PO (09:58)
[2019-10-09] MEDS ORDERED: DEXT1SYP9 PO (09:58)
[2019-10-09] MEDS ORDERED: DexAMETHasone 4 MG TAB PO SCH (10:00)
[2019-10-09] MEDS ORDERED: BUDE0.5S IN (10:00)
[2019-10-09] MEDS ORDERED: FUROSEMIDE 20 MG/2 ML VIAL IV ONE (10:00)
[2019-10-09] MEDS ORDERED: ALB5IS NEB (10:00)
[2019-10-09] MEDS ORDERED: POTASSIUM CHL 10 Meq TABLET PO ONE (10:00)
--- NOTE | 2019-10-09 10:38 | NUR ---
ROUNDS Dr Russell at bedside for rounds, new orders received and followed through. Patient updated on plan of care, verbalized understanding.
[2019-10-09] MEDS ORDERED: SODIUM CHLORIDE 0.9 % NEB SOLN 3ML NEB ONE (10:52)
[2019-10-09] MEDS: FAMOTIDINE 20 MG TAB PO SCH ×2 (11:32→21:55)
[2019-10-09] MEDS: ASPirin 81 mg TAB PO SCH (11:32)
[2019-10-09] MEDS: APIXABAN 5 MG TAB PO SCH ×2 (11:33→21:55)
[2019-10-09] MEDS: amLODIPine BESYLATE 5 MG TAB PO SCH (11:33)
[2019-10-09] MEDS: AZITHROMYCIN 250 MG TAB PO SCH (11:35)
[2019-10-09] MEDS: FLUTICASONE PROP NASAL SPR 0.05 % (50MCG) 16GM EACHNOSTRI SCH (11:37)
--- NOTE | 2019-10-09 11:40 | NUR ---
WOUND CARE NOTE: IN TO SEE PATIENT AT THIS TIME FOR SKIN INTEGRITY MONITORING. PATIENT HAS CURRENT TRELL SCORE OF 21. PATIENT CAN SELF TURN/REPOSITION SELF. SKIN/WOUND CARE PLAN UPDATED. SHE CONTINUES TO HAVE MULTIPLE SMALL ABRASIONS TO LEFT BUTTOCK. OPEN ABRASION AREAS ARE 1 X 1 CM AT THE LARGES. WOUND BED IS PINK, PERIWOUND IS PINK AND FADING PURPLE ECCHYMOSIS NOTED. APPLIED ZGUARD, OPTIFOAM GENTLE DRESSING. RECOMMEND: CONTINUATION WITH ALL WOUND CARE ORDERS PREVIOUSLY PRESCRIBED BY . WOUND CARE TEAM. WILL CONTINUE TO MONITOR. Addendum: 10/09/19 at 1444 by Keturah Lyon RN Amended: Links added.
[2019-10-09 13:00] VITALS: BP 124/74
[2019-10-09] MEDS ORDERED: LORazepam 0.5 MG TAB PO PRN (14:30)
[2019-10-09 16:24] VITALS: BP 118/68
[2019-10-09] MEDS: FUROSEMIDE 40 MG/4 ML VIAL IV SCH (17:39)
--- NOTE | 2019-10-09 19:16 | NUR ---
Care endorsed to ADE Meeks, night nurse.
[2019-10-09 21:00] VITALS: BP 113/73
[2019-10-09] MEDS: POTASSIUM CHL 10 Meq TABLET PO SCH (21:55)
[2019-10-10] MEDS: ALBUTEROL SULF 2.5 MG/0.5ML(0.5%) NEB SOLN NEB SCH ×4 (00:47→18:12)
--- NOTE | 2019-10-10 01:30 | NUR ---
1899. REPORT OBTAINED ON PATIENT. 1919. PATIENT MET IN HER ROOM. WAS SITTING OUT ON A CHAIR TALKING ON THE PHONE. WAS POLITELY INTERRUPTED. DENIED VERBALIZED SHE IS SCHEDULED FOR ECHOCARDIOGRAM IN AM.PATIENT WAS RELAXED WITH NO RESPIRATORY DISTRESS. STILL HAS CRACKLES IN ALL LUNG MONTENEGRO. O2 WAS SET AT 6L VIA OXIMIZER. WAS INFORMED OF LIMITED FLUID INTAKE ORDERED TODAY.
--- NOTE | 2019-10-10 01:38 | NUR ---
2200. O2 SAT AT REST WHILE ON 6L O2 BY OXIMIZER AVERAGED 97%.
[2019-10-10 05:00] VITALS: BP 132/86
--- NOTE | 2019-10-10 05:02 | NUR ---
0400. PATIENT AWAKE AND ON THE PHONE. STATED SHE FEELS WELL. O2 SATURATION 97%ON 6L OXYGEN BY OXIMIZER.
[2019-10-10] MEDS: FUROSEMIDE 40 MG/4 ML VIAL IV SCH ×2 (06:00→17:45)
[2019-10-10 06:01] LABS: Basophils # (auto) 0 10 ^3/uL (0-0.2); Basophils % (auto) 0.3 % (0.0-2.0); Eosinophils # (auto) 0.2 10 ^3/uL (0-0.8); Eosinophils % (auto) 1.9 % (0.0-7.0); Hematocrit 39.6 % (36.0-46.0); Hemoglobin 13.2 g/dL (12.2-16.2); Lymphocytes # (auto) 1.9 10 ^3/uL (0.4-5.4); Lymphocytes % (auto) 19.8 % (10.0-50.0); Mean Corpuscular Hemoglobin 30.8 pg (28.0-32.0); Mean Corpuscular Hgb Conc. 33.3 g/dL (32.0-36.0); Mean Corpuscular Volume 92.3 fL (80.0-100.0); Monocytes # (auto) 0.9 10 ^3/uL (0-1.3); Monocytes % (auto) 9.5 % (0.0-12.0); Neutrophils # (auto) 6.7 10 ^3/uL (1.6-8.6); Neutrophils % (auto) 68.5 % (37.0-80.0); Nucleated Red Blood Cells % 0.1 %; Platelet Count (auto) 198 10^3/uL (140-450); Red Blood Cells 4.28 10^6/uL (4.0-5.20); Red Cell Distribution Width 15.3 % (11.8-14.3); White Blood Cell 9.8 10^3/uL (4.4-10.8)
[2019-10-10 06:23] LABS: BUN/Creatinine Ratio 33.3; Calcium 8.2 mg/dL (8.5-10.1); Potassium 3.7 mmol/L (3.5-5.1)
--- NOTE | 2019-10-10 06:46 | NUR ---
PATIENT ENCOURAGED TO WALK OUT.
--- NOTE | 2019-10-10 07:30 | NUR ---
Opening Shift Note Assumed care of patient, awake and alert. No S/S of distress, reports SOB with activity, 6L o2, denies pain. Instructed on POC and to call for assist PRN, will continue to monitor for changes Q1hr and PRN.
[2019-10-10 08:20] VITALS: BP 115/74
[2019-10-10] MEDS: BUDESONIDE (INHALATION) 0.5 MG/2 ML NEB NEB SCH ×2 (08:21→18:12)
--- NOTE | 2019-10-10 08:26 | NUR ---
DECREASED 02 TO 5LPM OXYMIZER AFTER MN. TX., SP02 94%. Addendum: 10/10/19 at 0828 by Belen Torres RT Amended: Links added.
[2019-10-10] MEDS: ASPirin 81 mg TAB PO SCH (10:12)
[2019-10-10] MEDS: FAMOTIDINE 20 MG TAB PO SCH ×2 (10:12→21:55)
[2019-10-10] MEDS: POTASSIUM CHL 10 Meq TABLET PO SCH ×2 (10:12→21:55)
[2019-10-10] MEDS ORDERED: CARVEDILOL 3.125 MG TAB PO ONE (10:30)
[2019-10-10] MEDS ORDERED: CLOPIDOGREL BISULFATE 75 MG TAB PO ONE (10:30)
[2019-10-10 11:00] LABS: Alanine Aminotransferase 62 U/L (13-56); Aspartate Aminotransferase 20 U/L (15-37)
[2019-10-10 11:13] LABS: Cholesterol 201 mg/dL (< 200); HDL Cholesterol 56 mg/dL (40-59); LDL Cholesterol 131 mg/dL (< 100); Triglycerides 139 mg/dL (< 150)
[2019-10-10 12:53] VITALS: BP 112/85
--- NOTE | 2019-10-10 15:39 | NUR ---
I called Lida at [facility]-she said that asthma is a qualifying diagnosis for the nebulizer-I faxed MD progress notes from today stating that patient has asthma. I also faxed requested medication list to Karis to fax updated [facility] form with nebulizer medications.
--- NOTE | 2019-10-10 15:43 | NUR ---
D/C Planning Regarding social service consult for home health physical therapy, walker and nebulizer. Information and choice letter was given to patient. Patient did not have no home health preference. Faxed clinical information to [facility] and [facility] for the nebulizer and walker. Per Gabby Paul patient has been accepted and service to start within 24-48hrs upon d/c day. Per Lida Freire patient will received walker and nebulizer to bedside.
[2019-10-10 17:00] VITALS: BP 125/73
--- NOTE | 2019-10-10 19:30 | NUR ---
Opening Shift Note Assumed care of patient, awake and alert. No S/S of distress/SOB or pain. Instructed on POC and to call for assist PRN, will continue to monitor for changes Q1hr and PRN.
[2019-10-10 21:00] VITALS: BP 106/75
[2019-10-10] MEDS: ATORVASTATIN 20 MG TAB PO SCH (21:55)
[2019-10-10] MEDS: CARVEDILOL 3.125 MG TAB PO SCH (21:56)
[2019-10-10] MEDS: SACUBITRIL-VALSARTAN 24mg/26mg TAB PO SCH (21:56)
[2019-10-11] MEDS: ALBUTEROL SULF 2.5 MG/0.5ML(0.5%) NEB SOLN NEB SCH ×5 (00:08→19:10)
[2019-10-11 04:40] VITALS: BP 107/59
[2019-10-11] MEDS: BUDESONIDE (INHALATION) 0.5 MG/2 ML NEB NEB SCH ×2 (05:45→19:10)
[2019-10-11] MEDS: FUROSEMIDE 40 MG/4 ML VIAL IV SCH ×2 (06:06→18:22)
[2019-10-11] MEDS: CARVEDILOL 3.125 MG TAB PO SCH ×2 (10:00→21:30)
[2019-10-11 10:02] VITALS: BP 93/45
[2019-10-11] MEDS: ASPirin 81 mg TAB PO SCH (10:20)
[2019-10-11] MEDS: CLOPIDOGREL BISULFATE 75 MG TAB PO SCH (10:21)
[2019-10-11] MEDS: POTASSIUM CHL 10 Meq TABLET PO SCH ×2 (10:21→21:31)
[2019-10-11] MEDS: SACUBITRIL-VALSARTAN 24mg/26mg TAB PO SCH ×2 (10:21→21:30)
[2019-10-11] MEDS: FAMOTIDINE 20 MG TAB PO SCH ×2 (10:21→21:31)
--- NOTE | 2019-10-11 10:28 | NUR ---
Nutrition Followup Notes Wt: 81.2 kg Pt was with care team at time of rounds. Pt diet was changed to Cardiac 2g Na. Pt has a good appetite aeb pt with good po intake avg of 78% x 3 days per RN note. Will continue to monitor po intake and tolerance of diet. Est Energy needs: 3528-1709 kcals (17-20 kcal/kgBW), Est Protein needs: 82-109 gms/day (1.5-2.0 gm/kgIBW). Will continue to monitor and reassess prn. LABS: Creat 0.51L, Alb 3.0L, Ca 8.2L GI: Pt had 1 BM on 10/10 per RN doc BS: 17 mod risk. Refer to wound assessment report for full details. PES: Obesity aeb 161% IBW and BMI of 33.1 kg/m2 r/t energy intake in excess of energy needs Comments: Will continue to monitor PO intake, skin status and pertinent labs. F/u mod 3-5 days Rec: 1) Continue to closely monitor pt PO intake to meet at least 75% of meals. 2) If appetite is poor, consider supplemental nutrition support Ensure Enlive 1 ctn bid 3) Continue current plan of care
[2019-10-11 12:31] VITALS: BP 93/61
[2019-10-11 16:55] VITALS: BP 100/63
--- NOTE | 2019-10-11 19:10 | NUR ---
AT BEDSIDE FOR MED HOMER MANDUJANO.
[2019-10-11 20:00] VITALS: BP 102/75
[2019-10-11] MEDS: ATORVASTATIN 20 MG TAB PO SCH (21:31)
[2019-10-11] MEDS: HYDROcodone-ACET 5/325MG TAB PO PRN (21:31)
[2019-10-11 22:00] VITALS: BP 102/75
[2019-10-12] MEDS: ALBUTEROL SULF 2.5 MG/0.5ML(0.5%) NEB SOLN NEB SCH ×4 (00:57→18:13)
[2019-10-12] MEDS: HYDROcodone-ACET 5/325MG TAB PO PRN (04:32)
[2019-10-12 05:35] VITALS: BP 95/49
[2019-10-12] MEDS: FUROSEMIDE 40 MG/4 ML VIAL IV SCH ×2 (05:37→18:00)
[2019-10-12] MEDS: BUDESONIDE (INHALATION) 0.5 MG/2 ML NEB NEB SCH ×2 (05:54→18:13)
[2019-10-12 09:00] VITALS: BP 103/69
[2019-10-12] MEDS: CARVEDILOL 3.125 MG TAB PO SCH ×2 (10:00→21:33)
[2019-10-12] MEDS: CLOPIDOGREL BISULFATE 75 MG TAB PO SCH (10:04)
[2019-10-12] MEDS: SACUBITRIL-VALSARTAN 24mg/26mg TAB PO SCH ×2 (10:04→21:33)
[2019-10-12] MEDS: ASPirin 81 mg TAB PO SCH (10:04)
[2019-10-12] MEDS: POTASSIUM CHL 10 Meq TABLET PO SCH ×2 (10:04→21:33)
[2019-10-12] MEDS: FAMOTIDINE 20 MG TAB PO SCH ×2 (10:04→21:33)
[2019-10-12] MEDS: HYDROcodone-ACET 10/325MG TAB PO PRN ×2 (10:05→17:23)
--- NOTE | 2019-10-12 10:37 | NUR ---
PT PT REFUSED PHYSICAL THERAPY DUE TO C/O PAIN IN ', WILL ATTEMPT [facility]el LATER IN THE AFTERNOON. . Signed: 10/12/19 at 1038 by CÉSAR FRANCISCO PTT <Co-Signature Required> Co-Signed: 10/12/19 at 1038 by Austin Slaughter PT Addendum: 10/12/19 at 1039 by CÉSAR FRANCISCO PTT Amended: Links added.
--- NOTE | 2019-10-12 12:06 | NUR ---
WOUND CARE COMPLETE TO LEFT BUTTOCK. OPTIFOAM APPLIED.
[2019-10-12 13:00] VITALS: BP 104/67
[2019-10-12 17:00] VITALS: BP 112/71
--- NOTE | 2019-10-12 18:13 | NUR ---
AT BEDSIDE FOR MED HOMER MANDUJANO.
--- NOTE | 2019-10-12 19:30 | NUR ---
Opening Shift Note Assumed care of patient, awake and alert. No S/S of distress/SOB. Pain management options discussed with patient. Instructed on POC and to call for assist PRN, will continue to monitor for changes Q1hr and PRN.
[2019-10-12 20:00] VITALS: BP 98/64
[2019-10-12] MEDS: ATORVASTATIN 20 MG TAB PO SCH (21:33)
[2019-10-12 22:37] VITALS: BP 98/64
[2019-10-13 05:16] VITALS: BP 120/82
[2019-10-13] MEDS: FUROSEMIDE 40 MG/4 ML VIAL IV SCH ×2 (05:22→17:28)
[2019-10-13] MEDS: HYDROcodone-ACET 10/325MG TAB PO PRN ×3 (05:23→15:51)
[2019-10-13] MEDS: ALBUTEROL SULF 2.5 MG/0.5ML(0.5%) NEB SOLN NEB SCH ×4 (05:30→18:48)
[2019-10-13 05:42] LABS: Calcium 8.2 mg/dL (8.5-10.1); Potassium 3.9 mmol/L (3.5-5.1)
[2019-10-13 05:44] LABS: BUN/Creatinine Ratio 20.7
--- NOTE | 2019-10-13 08:00 | NUR ---
OPENING SHIFT NOTE ASSUMED CARE OF PATIENT AWAKE AND ALERT. NO S/S OF DISTRESS NOTED OR COMPLAINTS OF PAIN. PATIENT UPDATED ON POC FOR THE DAY AND ALL QUESTIONS ANSWERED. BED IS IN LOWEST, LOCKED POSITION WITH SIDE RAILS UP X2 AND CALL LIGHT WITHIN REACH. WILL CONTINUE TO MONITOR Q1H AND PRN.
[2019-10-13 08:34] VITALS: BP 100/67
[2019-10-13] MEDS ORDERED: ADENOSINE 73 MG in GIVE UN-DILUTED 0 ML IV STA (08:38)
[2019-10-13] MEDS ORDERED: DOBUTamine 1000MCG/ML 100 ML IV ONE (08:45)
[2019-10-13 09:28] VITALS: BP 139/24
[2019-10-13] MEDS: CARVEDILOL 3.125 MG TAB PO SCH ×2 (10:00→22:00)
[2019-10-13] MEDS: BUDESONIDE (INHALATION) 0.5 MG/2 ML NEB NEB SCH ×2 (10:35→18:48)
[2019-10-13] MEDS: POTASSIUM CHL 10 Meq TABLET PO SCH ×2 (10:49→22:11)
[2019-10-13] MEDS: FAMOTIDINE 20 MG TAB PO SCH ×2 (10:49→22:11)
[2019-10-13] MEDS: SACUBITRIL-VALSARTAN 24mg/26mg TAB PO SCH ×2 (10:49→22:11)
[2019-10-13] MEDS: CLOPIDOGREL BISULFATE 75 MG TAB PO SCH (10:49)
[2019-10-13] MEDS: ASPirin 81 mg TAB PO SCH (10:49)
[2019-10-13 12:37] VITALS: BP 101/63
[2019-10-13 16:25] VITALS: BP 103/60
--- NOTE | 2019-10-13 16:45 | NUR ---
DVT RECEIVED CALL FROM RADIOLOGY REGARDING POSITIVE VENOUS DOPPLER RESULTS. CRITICAL RESULT CALLED IN TO DR MEJIA, NEW ORDERS RECEIVED, READ BACK AND VERIFIED. WILL CARRY OUT AND CONTINUE CARE.
--- NOTE | 2019-10-13 19:25 | NUR ---
Opening Shift Note Assumed care of patient, awake and alert. Pt very SOB with labored respirations, O2 saturation noted at 84%. Oxygen delivery increased from 6L to 7L oximizer. Pt O2 sat noted to increase to 94% and pt stated feeling better. Pt encouraged to take deep slow breaths. All other needs addressed at this time. Safety measures in place, bed in lowest position, bed rails raised x2, call light within reach. Instructed on POC and to call for assist PRN, will continue to monitor for changes Q1hr and PRN.
[2019-10-13 22:00] VITALS: BP 107/67
[2019-10-13] MEDS: ENOXAPARIN SOD 100 MG/1 ML SYRINGE SC SCH (22:11)
[2019-10-13] MEDS: ATORVASTATIN 20 MG TAB PO SCH (22:11)
[2019-10-14] VITALS (7 sets, daily range): BP systolic 95–111; BP diastolic 66–73
[2019-10-14] MEDS: ALBUTEROL SULF 2.5 MG/0.5ML(0.5%) NEB SOLN NEB SCH ×5 (00:12→19:29)
[2019-10-14] MEDS: HYDROcodone-ACET 10/325MG TAB PO PRN (02:56)
[2019-10-14] MEDS: FUROSEMIDE 40 MG/4 ML VIAL IV SCH (06:31)
[2019-10-14] MEDS: BUDESONIDE (INHALATION) 0.5 MG/2 ML NEB NEB SCH ×2 (06:50→19:29)
[2019-10-14] MEDS: ASPirin 81 mg TAB PO SCH (09:56)
[2019-10-14] MEDS: SACUBITRIL-VALSARTAN 24mg/26mg TAB PO SCH ×2 (09:57→21:43)
[2019-10-14] MEDS: CARVEDILOL 3.125 MG TAB PO SCH ×3 (09:57→21:43)
[2019-10-14] MEDS: POTASSIUM CHL 10 Meq TABLET PO SCH ×2 (09:58→21:43)
[2019-10-14] MEDS: FAMOTIDINE 20 MG TAB PO SCH ×2 (09:58→21:42)
[2019-10-14] MEDS: ENOXAPARIN SOD 100 MG/1 ML SYRINGE SC SCH ×2 (09:58→21:42)
--- NOTE | 2019-10-14 10:10 | NUR ---
Dr Russell bedside with patient discussing plan of care
--- NOTE | 2019-10-14 10:10 | NUR ---
Dr Russell bedside with patient
--- NOTE | 2019-10-14 10:30 | NUR ---
PATIENT JUST WALKED TO BATHROOM WITH NURSING. ATTEMPT P.T. LATER.
--- NOTE | 2019-10-14 12:15 | NUR ---
PAIN Patient reports pain 5/10 to bilat legs. Patient states pain at 5/10 is tolerable and does not want pain medication at this time
--- NOTE | 2019-10-14 12:58 | NUR ---
Nutrition Followup Notes Wt: 85.2 kg Pt was with MD at bedside when rounded this morning. Pt is with a Cardiac 2g Na diet, appetite is good aeb ave 88% PO intake over 4 meals per RN doc. Pt with no distress per RN doc. Per MD notes, discussed plan of care with pt. Est Energy needs: 2464-6820 kcals (17-20 kcal/kgBW), Est Protein needs: 82-109 gms/day (1.5-2.0 gm/kgIBW). Will continue to monitor and reassess prn. LABS: Alb 3.0L, Ca 8.2L GI: Pt had 1 BM on 10/13 per RN doc BS: 17 mod risk. Refer to wound assessment report for full details. PES: Obesity aeb 161% IBW and BMI of 33.1 kg/m2 r/t energy intake in excess of energy needs Comments: Will continue to monitor PO intake, skin status and pertinent labs. F/u mod 3-5 days Rec: 1) Continue to closely monitor pt PO intake to meet at least 75% of meals. 2) If appetite is poor, consider supplemental nutrition support Ensure Enlive 1 ctn bid 3) Continue current plan of care
--- NOTE | 2019-10-14 15:30 | NUR ---
CT Talked to CT to confirm patient will have CT Angio completed today. Per CT, they have been busy today but patient will have CT done today.
[2019-10-14] MEDS ORDERED: IOHEXOL 350 MG/ML 100ML IJ ONE (16:37)
[2019-10-14] MEDS: FUROSEMIDE 20 MG/2 ML VIAL IV SCH (17:53)
--- NOTE | 2019-10-14 18:00 | NUR ---
Stress Test Dr Day called regarding Stress Test, he will review and write report tonarleth
--- NOTE | 2019-10-14 18:15 | NUR ---
CT Spoke to Zaida in CT, confirmed again patient will have CT angio done today. Zaida said CT will be complete today.
--- NOTE | 2019-10-14 19:00 | NUR ---
AT BEDSIDE FOR MED NEB TX, PT OFF UNIT. WILL RETURN AT NEXT TX TIME.
--- NOTE | 2019-10-14 19:31 | NUR ---
PT RETURNED TO ROOM, MED NEB TX GIVEN.
[2019-10-14] MEDS: ATORVASTATIN 20 MG TAB PO SCH (21:42)
--- NOTE | 2019-10-14 22:27 | NUR ---
CALLED PAULINA COMMERCIAL DEVELOPMENT MANAGER FOR CT ANGIO RESULTS REQUESTED AWAITING CALL BACK.
--- NOTE | 2019-10-14 22:50 | NUR ---
RECEIVED CALL BACK FROM Avinash GALLARDO WAS UPDATED ON CT ANGIO IMPRESSION THAT WAS DONE TODAY. PAULINA REQUESTED CONSENTS BE SIGNED FOR LEFT HEART CATH; INFORMED PAULINA THAT CONSENTS WOULD BE PRINTED AND WOULD BE READY TO SIGN WHEN PATIENT HAS BEEN INFORMED ABOUT HER PROCEDURE BY .
--- NOTE | 2019-10-14 23:40 | NUR ---
ROUNDS PATIENT RESTING EYES CLOSED. HEAD OF BED IS UP >30 DEGREES. PATIENT IS ON OXYMIZER AT 7L AND HAS CONTINUOUS MONITOR SAT O2 PULSE OXIMETER; CURRENTLY AT 94%. NO S/SX OF DISTRESS, SOB OR PAIN. WILL CONTINUE TO MONITOR Q1H AND PRN.
[2019-10-15] VITALS (13 sets, daily range): BP systolic 93–109; BP diastolic 48–68
--- NOTE | 2019-10-15 01:30 | NUR ---
ROUNDS PATIENT IS COMFORTABLE IN BED. NO S/SX OF DISTRESS, SOB OR PAIN. WILL CONTINUE TO MONITOR.
[2019-10-15] MEDS: FUROSEMIDE 20 MG/2 ML VIAL IV SCH ×2 (05:13→18:00)
[2019-10-15] MEDS: BUDESONIDE (INHALATION) 0.5 MG/2 ML NEB NEB SCH ×2 (05:48→18:26)
[2019-10-15] MEDS: ALBUTEROL SULF 2.5 MG/0.5ML(0.5%) NEB SOLN NEB SCH ×3 (05:48→18:26)
[2019-10-15 07:07] LABS: INR 1.04 (0.9-1.15)
[2019-10-15 07:11] LABS: Calcium 8.6 mg/dL (8.5-10.1)
[2019-10-15 07:13] LABS: BUN/Creatinine Ratio 31.8
[2019-10-15 07:16] LABS: Basophils # (auto) 0.1 10 ^3/uL (0-0.2); Basophils % (auto) 0.6 % (0.0-2.0); Eosinophils # (auto) 0.3 10 ^3/uL (0-0.8); Eosinophils % (auto) 2.5 % (0.0-7.0); Hemoglobin 13.6 g/dL (12.2-16.2); Lymphocytes # (auto) 1.3 10 ^3/uL (0.4-5.4); Lymphocytes % (auto) 10.8 % (10.0-50.0); Mean Corpuscular Hemoglobin 30.9 pg (28.0-32.0); Mean Corpuscular Hgb Conc. 33.2 g/dL (32.0-36.0); Mean Corpuscular Volume 92.9 fL (80.0-100.0); Monocytes # (auto) 1.3 10 ^3/uL (0-1.3); Monocytes % (auto) 10.2 % (0.0-12.0); Neutrophils # (auto) 9.5 10 ^3/uL (1.6-8.6); Neutrophils % (auto) 75.9 % (37.0-80.0); Nucleated Red Blood Cells % 0.1 %; Platelet Count (auto) 209 10^3/uL (140-450); Red Blood Cells 4.42 10^6/uL (4.0-5.20); Red Cell Distribution Width 15.8 % (11.8-14.3); White Blood Cell 12.5 10^3/uL (4.4-10.8)
--- NOTE | 2019-10-15 09:45 | NUR ---
Patient down to gold leaf laborer
--- NOTE | 2019-10-15 09:57 | NUR ---
D/C planning Regarding social service consult for SNF placement. Per Dr. Russell patient is not stable to transfer at this time.
[2019-10-15] MEDS: ENOXAPARIN SOD 100 MG/1 ML SYRINGE SC SCH ×2 (10:00→21:58)
[2019-10-15] MEDS ORDERED: SACUBITRIL-VALSARTAN 24mg/26mg TAB PO SCH (10:00)
[2019-10-15] MEDS: ASPirin 81 mg TAB PO SCH (10:00)
[2019-10-15] MEDS: CARVEDILOL 3.125 MG TAB PO SCH ×2 (10:00→21:57)
[2019-10-15] MEDS: methylPREDNISolone SOD SUCC 40 MG/ML VL IV SCH ×2 (10:00→21:56)
[2019-10-15] MEDS: POTASSIUM CHL 10 Meq TABLET PO SCH ×2 (10:00→21:57)
[2019-10-15] MEDS: FAMOTIDINE 20 MG TAB PO SCH ×2 (10:00→21:57)
[2019-10-15] MEDS ORDERED: VERAPAMIL 2.5MG/ML INJ 2ML VIAL IV ONE (10:15)
[2019-10-15] MEDS ORDERED: fentaNYL CITRATE 100 MCG/2 ML VL ONE (10:15)
[2019-10-15] MEDS ORDERED: MIDAZOLAM HCL 1MG/1ML-2 ML VIAL ONE (10:15)
[2019-10-15] MEDS ORDERED: HEPARIN SODIUM (PORCINE) 5000 UNITS/ML 1ML VIAL ONE (10:15)
[2019-10-15] MEDS ORDERED: ANGIOMAX 250 MG VIAL IV ONE (10:15)
[2019-10-15] MEDS ORDERED: LIDOCAINE 2%HCL (LOCAL ANESTH.) INJ 20ML MDV ONE (10:16)
[2019-10-15] MEDS ORDERED: SODIUM CHL 0.9% 0 ML ONE (10:16)
--- NOTE | 2019-10-15 11:05 | NUR ---
Received pt. awake and slightly drowsy from Marketing Associate procedure room; oriented to person, place and event. Pt. mildly anxious and c/o mild difficulty breathing. VS stable with O2 per Oxymizer NC on at 10 L/min. Pt. is noticeably short of breath when self-adjusting on bed; Dr. Banerjee notified re: pt. status. Pt. instructed to slow breathing and relax, repositioned for optimum breathing, HOB elevated between 30-45 degrees. IV NS infusing @ TKO into LEFT AC with 850 ml credit; site benign.
--- NOTE | 2019-10-15 11:14 | NUR ---
Dr. Banerjee at bedside to evaluate pt. who is calmer, not dyspneic and states feeling better. NAD distress noted. VS remain stable.
--- NOTE | 2019-10-15 11:35 | NUR ---
SBAR report given to ADE Aguirre. Pt. asleep with even and deep respirations with NAD noted; awakens easily to voice and touch stimuli; denies discomfort.
[2019-10-15] MEDS ORDERED: SODIUM CHLORIDE 0.9 % NEB SOLN 3ML NEB ONE (11:37)
--- NOTE | 2019-10-15 11:38 | NUR ---
Stable for transfer back to room via bed by RNs Trupti Da Silva and Svetlana Murry On arrival to room, pt. endorsed to ADE Aguirre.
--- NOTE | 2019-10-15 12:00 | NUR ---
Patient returned to room from Exhibit Specialist. Patient VS: 98/66, 22, 98.1, 95%, 89. No complaints of pain or discomfort at this time. Post cath lab nurse protocol initiated.
[2019-10-15] MEDS ORDERED: DULoxetine HCL 30 MG CAP PO ONE (14:00)
--- NOTE | 2019-10-15 14:40 | NUR ---
[employer] Life Vest Per Dr Russell, patient does not need [employer] Vest at this time. As requested by Dr Russell, I informed patients daughter, Tonja, that the life vest can be returned. I provided Tonja with the # for [employer], to arrange return.
--- NOTE | 2019-10-15 14:50 | NUR ---
Dr Mayo bedside with patient discussing plan of care
--- NOTE | 2019-10-15 15:00 | NUR ---
[employer] Return Rep from [employer] called, a claims customer service representative from [employer] will pickup vest. Vest was removed from patient and placed bedside for pickup
[2019-10-15] MEDS ORDERED: FUROSEMIDE 40 MG/4 ML VIAL IV ONE (15:30)
[2019-10-15] MEDS: SODIUM CHLOR 0.9% PF (SALINE LOCK) 10ML VIAL/SYR IV SCH ×2 (16:19→21:55)
--- NOTE | 2019-10-15 18:26 | NUR ---
Respiratory note: At bedside for med nicanor magana.
--- NOTE | 2019-10-15 20:00 | NUR ---
RECEIVED PATIENT FROM DAY SHIFT RN. PATIENT SITTING AT SIDE OF THE BED AND TRYING TO GO TO BEDSIDE COMMODE. NO S/S OF DISTRESS NOTED. BUT SOB EXACERBATIONS. O2 SAT 85% ON 10L/OXYMIZER. ASSISTED PATIENT TO BEDSIDE COMMODE. PATIENT HAD BM. WHEN PATIENT BACK TO BED, O2 SAT BACK TO 90%. POC INSTRUCTED AND ENCOURAGED PATIENT TO CALL FOR VIDEO SOFTWARE ENGINEER IF NEEDED. BED IN LOWEST LOCKED POSITION WITH SIDE RAILS UP X 2. CALL YOU WITHIN REACH. ALARM ON. CONTINUE TO MONITOR FOR CHANGES Q1H AND PRN.
[2019-10-15] MEDS: ATORVASTATIN 20 MG TAB PO SCH (21:57)
[2019-10-16] MEDS: ALBUTEROL SULF 2.5 MG/0.5ML(0.5%) NEB SOLN NEB SCH ×4 (00:36→18:29)
--- NOTE | 2019-10-16 00:41 | NUR ---
At bedside for med nicanor magana.
--- NOTE | 2019-10-16 03:35 | NUR ---
PATIENT SLEEPING. NO S/S OF DISTRESS NOTED. CONTINUE CARE
[2019-10-16 05:14] VITALS: BP 110/78
[2019-10-16 05:47] LABS: Potassium 4.5 mmol/L (3.5-5.1)
[2019-10-16 05:54] LABS: Albumin 2.6 g/dL (3.4-5.0); BUN/Creatinine Ratio 38.6; Bilirubin, Total 0.8 mg/dL (0.2-1.0); Calcium 8.7 mg/dL (8.5-10.1); Total Protein 6.6 g/dL (6.4-8.2)
[2019-10-16] MEDS: SODIUM CHLOR 0.9% PF (SALINE LOCK) 10ML VIAL/SYR IV SCH ×3 (05:55→21:58)
[2019-10-16] MEDS: FUROSEMIDE 20 MG/2 ML VIAL IV SCH ×2 (05:55→18:01)
--- NOTE | 2019-10-16 05:56 | NUR ---
RT AT BEDSIDE.
[2019-10-16] MEDS: BUDESONIDE (INHALATION) 0.5 MG/2 ML NEB NEB SCH ×2 (06:02→18:30)
--- NOTE | 2019-10-16 06:21 | NUR ---
PATIENT'S DAUGHTER CHASE CALLED. PASSWORD VERIFIED. UPDATED ON PATIENT'S CURRENT CONDITION. CONTINUE TO MONITOR.
--- NOTE | 2019-10-16 08:00 | NUR ---
Opening Shift Note Assumed care of patient, awake and alert. Patient has SOB with exertion but no complaints of pain. O2 at 10lpm/oxymizer continuously administered. Instructed on POC and to call for assist PRN, will continue to monitor for changes Q1hr and PRN.
[2019-10-16 09:00] VITALS: BP 106/70
[2019-10-16] MEDS: CARVEDILOL 3.125 MG TAB PO SCH (10:00)
--- NOTE | 2019-10-16 10:00 | NUR ---
O2 inhalation per oxymizer reduced to 7lpm. Continue care.
[2019-10-16] MEDS: FAMOTIDINE 20 MG TAB PO SCH ×2 (10:26→21:59)
[2019-10-16] MEDS: POTASSIUM CHL 10 Meq TABLET PO SCH ×2 (10:26→21:59)
[2019-10-16] MEDS: ASPirin 81 mg TAB PO SCH (10:26)
[2019-10-16] MEDS: methylPREDNISolone SOD SUCC 40 MG/ML VL IV SCH ×2 (10:26→21:59)
[2019-10-16] MEDS: DULoxetine HCL 30 MG CAP PO SCH (10:27)
[2019-10-16] MEDS: ENOXAPARIN SOD 100 MG/1 ML SYRINGE SC SCH (10:27)
--- NOTE | 2019-10-16 11:00 | NUR ---
WOUND CARE NOTE: IN TO SEE PATIENT FOR WOUND RE-EVALUATION. PATIENT HAS TRELL SCORE OF 19. SHE IS ABLE TO SELF TURN/REPOSITION SELF. SHE IS MOVING LESS HOWEVER, D/T SOB. PATIENT'S SKIN TEAR IS STILL OPEN, MEASURING 1 X 1 CM TO LEFT BUTTOCK. SHE HAS BLANCHABLE REDNESS NOTED TO THE SACRUM. PATIENT EDUCATED IN NEED TO REPOSITION SELF AT LEAST Q 2 HOURS, PRN PATIENT VERBALIZED UNDERSTANDING. APPLIED ZGUARD, OPTIFOAM GENTLE SACRAL DRESSING. NO OTHER SKIN INTEGRITY ISSUES NOTED. RECOMMEND: PRESSURE REDISTRIBUTION Q 2 HOURS, PRN CONDITION PERMITS, CONTINUATION WITH ALL OTHER WOUND CARE ORDERS PREVIOUSLY PRESCRIBED BY MD. WOUND CARE TEAM WILL CONTINUE TO MONITOR. Addendum: 10/16/19 at 1429 by Keturah Lyon RN Amended: Links added.
--- NOTE | 2019-10-16 11:30 | NUR ---
PATIENT VERY TIRED. ATTEMPT P.T. LATER.
[2019-10-16 13:00] VITALS: BP 133/68
--- NOTE | 2019-10-16 15:10 | NUR ---
D/C Planning Regarding social service consult for SNF placement. Patient advised me to contact her daughter Nolvia in regards of any discharge planning. Placed call to Nolvia advising her doctor plans to discharge patient Sunday. Information and choice letter was given to Nolvia. Per Nolvia she would like to call a few [facility] nursing facilities before choosing one.
[2019-10-16 16:54] VITALS: BP 118/72
--- NOTE | 2019-10-16 19:20 | NUR ---
Opening Shift Note Assumed care of patient, awake and alert. No S/S of distress/SOB or pain. Patient on 8L oxymizer O2 sat of 91-92%. Resting in bed. Denies any pain. Instructed on POC and to call for assist PRN, will continue to monitor for changes Q1hr and PRN.
--- NOTE | 2019-10-16 20:48 | NUR ---
PATIENT'S DAUGHTER CHASE CALLED. PASSWORD VERIFIED. UPDATED ON PATIENT'S CURRENT CONDITION. CONTINUE TO MONITOR.
[2019-10-16] MEDS: APIXABAN 5 MG TAB PO SCH (21:59)
[2019-10-16] MEDS: ATORVASTATIN 20 MG TAB PO SCH (21:59)
[2019-10-16 22:00] VITALS: BP 123/81
[2019-10-17] VITALS (7 sets, daily range): BP systolic 114–127; BP diastolic 76–87
[2019-10-17] MEDS: ALBUTEROL SULF 2.5 MG/0.5ML(0.5%) NEB SOLN NEB SCH ×6 (00:13→23:21)
[2019-10-17] MEDS: HYDROcodone-ACET 10/325MG TAB PO PRN (01:15)
--- NOTE | 2019-10-17 01:16 | NUR ---
PATIENT C/O BACK PAIN @ 09/28. MEDICATED PATIENT ORDERED. CONTINUE TO MONITOR.
--- NOTE | 2019-10-17 02:15 | NUR ---
REASSESSED PATIENT FOR PAIN, PATIENT SLEEPING. NO S/S OF PAIN NOTED. CONTINUE CARE
[2019-10-17 05:15] LABS: Basophils # (auto) 0 10 ^3/uL (0-0.2); Basophils % (auto) 0.3 % (0.0-2.0); Eosinophils # (auto) 0 10 ^3/uL (0-0.8); Hematocrit 37.1 % (36.0-46.0); Hemoglobin 12.7 g/dL (12.2-16.2); Lymphocytes # (auto) 0.7 10 ^3/uL (0.4-5.4); Lymphocytes % (auto) 6.8 % (10.0-50.0); Mean Corpuscular Hemoglobin 31.9 pg (28.0-32.0); Mean Corpuscular Hgb Conc. 34.4 g/dL (32.0-36.0); Mean Corpuscular Volume 92.7 fL (80.0-100.0); Monocytes # (auto) 0.4 10 ^3/uL (0-1.3); Monocytes % (auto) 4.3 % (0.0-12.0); Neutrophils # (auto) 8.8 10 ^3/uL (1.6-8.6); Neutrophils % (auto) 88.6 % (37.0-80.0); Platelet Count (auto) 225 10^3/uL (140-450); Red Cell Distribution Width 15.5 % (11.8-14.3); White Blood Cell 9.9 10^3/uL (4.4-10.8)
[2019-10-17 05:32] LABS: Albumin 2.7 g/dL (3.4-5.0); Calcium 8.5 mg/dL (8.5-10.1); Potassium 3.8 mmol/L (3.5-5.1)
[2019-10-17 05:35] LABS: BUN/Creatinine Ratio 38.6; Bilirubin, Total 0.4 mg/dL (0.2-1.0); Total Protein 6.8 g/dL (6.4-8.2)
[2019-10-17] MEDS: FUROSEMIDE 20 MG/2 ML VIAL IV SCH ×2 (05:54→18:16)
[2019-10-17] MEDS: SODIUM CHLOR 0.9% PF (SALINE LOCK) 10ML VIAL/SYR IV SCH ×3 (05:54→21:50)
[2019-10-17] MEDS: BUDESONIDE (INHALATION) 0.5 MG/2 ML NEB NEB SCH ×2 (06:03→18:32)
--- NOTE | 2019-10-17 07:00 | NUR ---
OPENING SHIFT NOTE ASSUMED CARE OF PATIENT FROM DISTRICT SCOUT EXECUTIVE RN JULIO. PATIENT IS AWAKE, ALERT, AND ORIENTED X4. PATIENT HAS NO S/S OF DISTRESS/SOB OR PAIN. INSTRUCTED PATIENT ON POC, PATIENT VERBALIZED UNDERSTANDING. BED IS IN LOWEST POSITION WITH SIDE RAILS RAISED X2, BED WHEELS LOCKED, AND CALL LIGHT IS WITHIN REACH. WILL CONTINUE TO MONITOR.
[2019-10-17] MEDS: DULoxetine HCL 30 MG CAP PO SCH (09:19)
[2019-10-17] MEDS: FAMOTIDINE 20 MG TAB PO SCH ×2 (09:19→21:47)
[2019-10-17] MEDS: APIXABAN 5 MG TAB PO SCH ×2 (09:19→21:49)
[2019-10-17] MEDS: ASPirin 81 mg TAB PO SCH (09:20)
[2019-10-17] MEDS: POTASSIUM CHL 10 Meq TABLET PO SCH ×2 (09:20→21:48)
[2019-10-17] MEDS: methylPREDNISolone SOD SUCC 40 MG/ML VL IV SCH ×2 (09:20→21:45)
--- NOTE | 2019-10-17 09:45 | NUR ---
MD MEJIA AT BEDSIDE UPDATED MD ON PATIENT'S STATUS, INCLUDING HOLDING ASPIRIN AND ADMINISTERING APIXABAN DUE TO PATIENT COUGHING BLOOD, MD IS AWARE. PER MD PATIENT WILL BE TRANSFERRED TO SNF, WILL FOLLOW THROUGH WITH ORDERS.
--- NOTE | 2019-10-17 11:37 | NUR ---
Nutrition Followup Notes Wt: 82.2 kg Pt was sleeping when rounded this morning. Pt is with BASHIR diet with adequte PO of > 75% x 4 per RN doc. pt with no distress noted Est Energy needs: 7592-7180 kcals (17-20 kcal/kgBW), Est Protein needs: 82-109 gms/day (1.5-2.0 gm/kgIBW). Will continue to monitor and reassess prn. LABS: BUN 22 H GLU 116 H ALB 2.7 L GI: Pt had 1 BM yesterday per RN doc BS: 19 low risk. Refer to wound assessment report for full details. PES: Obesity aeb 161% IBW and BMI of 33.1 kg/m2 r/t energy intake in excess of energy needs Comments: Will continue to monitor PO intake, skin status and pertinent labs. F/u mod 3-5 days Rec: 1) Continue to closely monitor pt PO intake to meet at least 75% of meals. 2) Continue current plan of care
--- NOTE | 2019-10-17 12:00 | NUR ---
SPOKE WITH SPA DIRECTOR/FINANCE ARIELLE AND PER ARIELLE PATIENT WILL NOT BE DISCHARGED TO SNF BECAUSE HER O2 LPM IS TOO HIGH FOR SNF TO ACCEPT. WILL INFORM DR. MEJIA.
--- NOTE | 2019-10-17 14:07 | NUR ---
PAGED MD MEJIA REGARDING SNF PLACEMENT. AWAITING CALL BACK
[2019-10-17] MEDS: ACETYLCYSTEINE 10 %(100MG/ML) SOL 4ML NEB SCH ×3 (14:23→23:21)
[2019-10-17] MEDS: IPRATROPIUM BROM 0.5 MG/2.5ML INH SOL NEB SCH ×3 (14:23→23:21)
--- NOTE | 2019-10-17 18:55 | NUR ---
CLOSING SHIFT NOTE ENDORSED CARE FOR POULTRY EVISCERATOR RN. PATIENT HAS NO S/S OF DISTRESS/SOB OR PAIN AT THIS TIME.
--- NOTE | 2019-10-17 19:30 | NUR ---
Opening Shift Note Assumed care of patient. Pt is AAO x4. No S/S of distress/SOB or pain. Pt on 8L oxymizer and Sat @ 99%. Bed in lowest locked position, safety precautions in place with call light within reach. Instructed on POC and to call for assist PRN, will continue to monitor for changes Q1hr and PRN. Signed: 10/18/19 at 0521 by SHERI GUPTA <Co-Signature Required> Co-Signed: 10/18/19 at 0521 by Shavon Yu RN RN
[2019-10-17] MEDS: ATORVASTATIN 20 MG TAB PO SCH (21:49)
[2019-10-17] MEDS ORDERED: BUDESONIDE (INHALATION) 0.5 MG/2 ML NEB NEB SCH (22:00)
[2019-10-18] MEDS: ACETYLCYSTEINE 10 %(100MG/ML) SOL 4ML NEB SCH ×6 (03:20→22:36)
[2019-10-18] MEDS: IPRATROPIUM BROM 0.5 MG/2.5ML INH SOL NEB SCH ×6 (03:20→22:36)
[2019-10-18] MEDS: ALBUTEROL SULF 2.5 MG/0.5ML(0.5%) NEB SOLN NEB SCH ×6 (03:20→22:36)
[2019-10-18 04:57] VITALS: BP 128/77
[2019-10-18] MEDS: FUROSEMIDE 20 MG/2 ML VIAL IV SCH ×2 (05:57→17:53)
[2019-10-18] MEDS: SODIUM CHLOR 0.9% PF (SALINE LOCK) 10ML VIAL/SYR IV SCH ×3 (05:57→22:51)
[2019-10-18] MEDS: BUDESONIDE (INHALATION) 0.5 MG/2 ML NEB NEB SCH ×2 (06:55→18:27)
--- NOTE | 2019-10-18 07:08 | NUR ---
OPENING SHIFT NOTE ASSUMED CARE OF PATIENT FROM AOC DIRECTOR COMBAT PLANS OFFICER RN CALLIE. PATIENT IS AWAKE, ALERT, AND ORIENTED X4. PATIENT HAS NO S/S OF DISTRESS/SOB OR PAIN. INSTRUCTED PATIENT ON POC, PATIENT VERBALIZED UNDERSTANDING. BED IS IN LOWEST POSITION WITH SIDE RAILS RAISED X2, BED WHEELS LOCKED, BED SIDE COMMODE AND CALL LIGHT IS WITHIN REACH. WILL CONTINUE TO MONITOR.
[2019-10-18 07:30] VITALS: BP 117/89
[2019-10-18 08:00] VITALS: BP 117/89
--- NOTE | 2019-10-18 09:30 | NUR ---
PT ASLEEP. ATTEMPT P.T. LATER.
[2019-10-18] MEDS: DULoxetine HCL 30 MG CAP PO SCH (09:40)
[2019-10-18] MEDS: FAMOTIDINE 20 MG TAB PO SCH ×2 (09:40→22:54)
[2019-10-18] MEDS: APIXABAN 5 MG TAB PO SCH ×2 (09:41→22:53)
[2019-10-18] MEDS: methylPREDNISolone SOD SUCC 40 MG/ML VL IV SCH ×2 (09:41→22:52)
[2019-10-18] MEDS: POTASSIUM CHL 10 Meq TABLET PO SCH ×2 (09:42→22:53)
[2019-10-18 12:00] VITALS: BP 118/79
[2019-10-18 16:00] VITALS: BP 124/80
--- NOTE | 2019-10-18 18:48 | NUR ---
CLOSING SHIFT NOTE ENDORSED CARE TO TOW BOAT CAPTAIN ADE VINES. PATIENT HAS NO S/S OF DISTRESS/SOB OR PAIN AT THIS TIME.
--- NOTE | 2019-10-18 20:09 | NUR ---
Received care of pt and report. Pt's dtr, Tonja called now asking for the medication given to her mother last night be given again, a nose spray. Her mother is c/o nasal congestion and difficulty breathing because of this. This RN explained to Tonja that no nose spray has been given or documented for prev. night; but this RN will go in and assess her mother and speak to RT and MD as necessary to help pt with this. Dtr cont to press stating that she was told anything OTC would be okay, and she could go get something and bring it for us to give. Further, and repeatedly reviewed with Tonja, pt's dtr, that OTC is still medication; and all medications must be ordered and recorded. At last Tonja VU and thanking RN for attention to this and care.
[2019-10-18 21:00] VITALS: BP 118/92
--- NOTE | 2019-10-18 22:12 | NUR ---
Dr Chandler called returning page of another RN, informed him of pt's freq small nose bleeds; humidification ordered. Spoke with RT who said cannot humidify oxymizer but may place pt on non-rebreather. She will respond when not assisting in the ER.
--- NOTE | 2019-10-18 22:42 | NUR ---
Respiratory note: PAGED BY RN, NOTIFIED PT WAS EXPERIENCING NOSE BLEEDS. INSTRUCTED RN TO PLACE PT ON NRB MASK UNTIL DONE ASSISTING WITH CODE IN ER. FOUND PT STILL ON OXYMIZER WITH BLOODY NOSE. MED NEB TX GIVEN, CPT HELD AT THIS TIME. PT PLACED ON 12L NRB MASK POST MED NEB TX. PT'S SPO2 NOTED AT 96%. PT WILL REMAIN ON NRB MASK AT THIS TIME. WILL CONTINUE TO MONITOR.
[2019-10-18] MEDS: ATORVASTATIN 20 MG TAB PO SCH (22:53)
[2019-10-18] MEDS: HYDROcodone-ACET 10/325MG TAB PO PRN (23:03)
[2019-10-18] MEDS: TEMAZEPAM 15 MG CAP PO PRN (23:04)
[2019-10-19] MEDS: ACETYLCYSTEINE 10 %(100MG/ML) SOL 4ML NEB SCH ×6 (02:47→22:15)
[2019-10-19] MEDS: IPRATROPIUM BROM 0.5 MG/2.5ML INH SOL NEB SCH ×6 (02:47→22:15)
[2019-10-19] MEDS: ALBUTEROL SULF 2.5 MG/0.5ML(0.5%) NEB SOLN NEB SCH ×6 (02:47→22:15)
[2019-10-19 05:00] VITALS: BP 121/81
[2019-10-19] MEDS: SODIUM CHLOR 0.9% PF (SALINE LOCK) 10ML VIAL/SYR IV SCH ×3 (06:00→22:12)
[2019-10-19] MEDS: BUDESONIDE (INHALATION) 0.5 MG/2 ML NEB NEB SCH ×2 (06:34→22:15)
[2019-10-19] MEDS: FUROSEMIDE 20 MG/2 ML VIAL IV SCH ×2 (06:34→17:49)
--- NOTE | 2019-10-19 06:45 | NUR ---
RT in room with pt as this RN entered. RT explaining to pt and this nurse that changing pt from non-rebreather to simple mask as pt's O2 sat upper 90s and 100. CPT and tx done. Pt's sat now 91 -94. RT to check back in after rounds. Pt wiping small amounts of blood freq from nose. She stated she feels a clot is up in the R nare; instructed pt not to try to remove it until the body gets rid of it so bleeding will not worsen and can stop. Pt JOSE FRANCISCO. Will report to day RN.
--- NOTE | 2019-10-19 07:00 | NUR ---
OPENING SHIFT NOTE ASSUMED CARE OF PATIENT FROM GYMNASTICS INSTRUCTOR RN JASMYN. PATIENT IS AWAKE, ALERT, AND ORIENTED X4. PATIENT HAS NO S/S OF DISTRESS/SOB OR PAIN. INSTRUCTED PATIENT ON POC, PATIENT VERBALIZED UNDERSTANDING. BED IS IN LOWEST POSITION WITH SIDE RAILS RAISED X2, BED WHEELS LOCKED, BED SIDE COMMODE AND CALL LIGHT IS WITHIN REACH. WILL CONTINUE TO MONITOR.
[2019-10-19 07:40] VITALS: BP 125/84
[2019-10-19 08:35] VITALS: BP 125/84
--- NOTE | 2019-10-19 09:10 | NUR ---
PATIENT IS HAVING RHINORRHEA MD MEJIA AT BEDSIDE. UPDATED MD ON PATIENT'S STATUS INCLUDING RHINORRHEA AND CONSTIPATION. MD IS AWARE. MD ORDER RHINO TAMPON. CALLED ER FOR RHINO TAMPON.
--- NOTE | 2019-10-19 09:20 | NUR ---
PER MD MEJIA HOLD ELIQUIS. WILL FOLLOW THROUGH WITH ORDERS.
--- NOTE | 2019-10-19 09:35 | NUR ---
MD MEJIA INSERTED RHINO TAMPON IN RIGHT NARE. PATIENT IS STABLE AT THIS TIME.
[2019-10-19] MEDS: APIXABAN 5 MG TAB PO SCH ×2 (10:00→22:00)
[2019-10-19] MEDS: POTASSIUM CHL 10 Meq TABLET PO SCH ×2 (10:47→22:12)
[2019-10-19] MEDS: FAMOTIDINE 20 MG TAB PO SCH ×2 (10:47→22:12)
[2019-10-19] MEDS: DULoxetine HCL 30 MG CAP PO SCH (10:48)
[2019-10-19] MEDS: methylPREDNISolone SOD SUCC 40 MG/ML VL IV SCH (10:48)
--- NOTE | 2019-10-19 11:30 | NUR ---
PER MD MEJIA OK TO GIVE SENNA RIGHT NOW FOR CONSTIPATION. WILL FOLLOW THROUGH WITH ORDERS.
[2019-10-19] MEDS: SENNA 8.6 MG TAB PO PRN (12:03)
[2019-10-19 12:29] VITALS: BP 132/85
[2019-10-19 16:46] VITALS: BP 120/63
--- NOTE | 2019-10-19 19:10 | NUR ---
Assumed care of pt. who is watching tv, alert and oriented x4, no s/s of distress, no c/o pin or discomfort. pt is aware that blood thinner will be held r/t nose bleed.
--- NOTE | 2019-10-19 19:12 | NUR ---
CLOSING SHIFT NOTE ENDORSED CARE TO EMERGENCY MEDICINE MEDICAL DIRECTOR RN NINA. PATIENT HAS NO S/S OF DISTRESS/SOB OR PAIN AT THIS TIME.
[2019-10-19] MEDS: ATORVASTATIN 20 MG TAB PO SCH (22:12)
[2019-10-20] VITALS (7 sets, daily range): BP systolic 106–136; BP diastolic 79–97
[2019-10-20] MEDS: ACETYLCYSTEINE 10 %(100MG/ML) SOL 4ML NEB SCH ×6 (02:10→23:27)
[2019-10-20] MEDS: IPRATROPIUM BROM 0.5 MG/2.5ML INH SOL NEB SCH ×6 (02:10→23:27)
[2019-10-20] MEDS: ALBUTEROL SULF 2.5 MG/0.5ML(0.5%) NEB SOLN NEB SCH ×6 (02:10→23:27)
[2019-10-20] MEDS: HYDROcodone-ACET 10/325MG TAB PO PRN ×2 (02:17→22:00)
[2019-10-20] MEDS: FUROSEMIDE 20 MG/2 ML VIAL IV SCH ×2 (05:56→18:22)
[2019-10-20] MEDS: SODIUM CHLOR 0.9% PF (SALINE LOCK) 10ML VIAL/SYR IV SCH ×3 (05:56→21:53)
[2019-10-20] MEDS: BUDESONIDE (INHALATION) 0.5 MG/2 ML NEB NEB SCH ×2 (06:32→18:21)
--- NOTE | 2019-10-20 07:05 | NUR ---
OPENING SHIFT NOTE ASSUMED CARE OF PATIENT FROM REGIONAL MARKETING DIRECTOR RN NINA. PATIENT IS AWAKE, ALERT, AND ORIENTED X4. PATIENT HAS NO S/S OF DISTRESS/SOB OR PAIN. INSTRUCTED PATIENT ON POC, PATIENT VERBALIZED UNDERSTANDING. BED IS IN LOWEST POSITION WITH SIDE RAILS RAISED X2, BED WHEELS LOCKED, BED SIDE COMMODE AND CALL LIGHT IS WITHIN REACH. WILL CONTINUE TO MONITOR.
[2019-10-20] MEDS: APIXABAN 5 MG TAB PO SCH (07:39)
[2019-10-20] MEDS: FAMOTIDINE 20 MG TAB PO SCH ×2 (10:04→21:53)
[2019-10-20] MEDS: POTASSIUM CHL 10 Meq TABLET PO SCH ×2 (10:04→21:53)
[2019-10-20] MEDS: DULoxetine HCL 30 MG CAP PO SCH (10:04)
[2019-10-20] MEDS: predniSONE 20 MG TAB PO SCH (10:04)
--- NOTE | 2019-10-20 11:49 | NUR ---
Nutrition Followup Notes Wt: 81.9 kg Pt was sleeping when rounded this morning. Pt is with BASHIR diet with adequate PO of > 100% x 4 per RN doc. pt with no distress noted Est Energy needs: 2358-5792 kcals (17-20 kcal/kgBW), Est Protein needs: 82-109 gms/day (1.5-2.0 gm/kgIBW). Will continue to monitor and reassess prn. LABS: BUN 22 H GLU 116 H ALB 2.7 L GI: Pt had 1 BM yesterday per RN doc BS: 18 mod risk. Refer to wound assessment report for full details. PES: Obesity aeb 161% IBW and BMI of 33.1 kg/m2 r/t energy intake in excess of energy needs Comments: Will continue to monitor PO intake, skin status and pertinent labs. F/u mod 3-5 days Rec: 1) Continue to closely monitor pt PO intake to meet at least 75% of meals. 2) Continue current plan of care
--- NOTE | 2019-10-20 13:00 | NUR ---
MD MEJIA AT BEDSIDE AND TOOK OUT RHINO TAMPON. PATIENT TOLERATED WELL. PATIENT HAS NO S/S OF DISTRESS/SOB OR PAIN AT THIS TIME.
--- NOTE | 2019-10-20 14:32 | NUR ---
SPOKE WITH DAUGHTER EMERY. PER DAUGHTER SHE HAS CHOSEN [facility] OR [facility]. SHE HAS INFORMED CNC MACHINE SETTER PATTI.
--- NOTE | 2019-10-20 15:00 | NUR ---
PATIENT REQUESTED THAT P.T. BE POSTPONED UNTIL TOMORROW.
--- NOTE | 2019-10-20 18:52 | NUR ---
CLOSING SHIFT NOTE ENDORSED CARE TO SHAREPOINT SPECIALIST RN . PATIENT HAS NO S/S OF DISTRESS/SOB OR PAIN AT THIS TIME.
--- NOTE | 2019-10-20 19:20 | NUR ---
OPENING SHIFT NOTE ASSUMED CARE OF PATIENT . PATIENT IS AWAKE, ALERT, AND ORIENTED X4. PATIENT HAS NO SIGNS OF DISTRESS, HOWEVER GETS SOB OR PAIN WHILE TALKING. INSTRUCTED PATIENT ON POC, PATIENT VERBALIZED UNDERSTANDING. BED IS IN LOWEST POSITION WITH SIDE RAILS RAISED X2, BED WHEELS LOCKED, BEDSIDE COMMODE AND CALL LIGHT IS WITHIN REACH. WILL CONTINUE TO MONITOR.
[2019-10-20] MEDS: ATORVASTATIN 20 MG TAB PO SCH (21:53)
[2019-10-20] MEDS: TEMAZEPAM 15 MG CAP PO PRN (22:00)
[2019-10-21] MEDS: IPRATROPIUM BROM 0.5 MG/2.5ML INH SOL NEB SCH ×6 (02:25→20:55)
[2019-10-21] MEDS: ALBUTEROL SULF 2.5 MG/0.5ML(0.5%) NEB SOLN NEB SCH ×6 (02:25→20:55)
[2019-10-21] MEDS: ACETYLCYSTEINE 10 %(100MG/ML) SOL 4ML NEB SCH ×6 (02:26→20:55)
[2019-10-21] MEDS: SODIUM CHLOR 0.9% PF (SALINE LOCK) 10ML VIAL/SYR IV SCH ×3 (05:04→21:40)
[2019-10-21] MEDS: FUROSEMIDE 20 MG/2 ML VIAL IV SCH ×2 (05:05→18:00)
[2019-10-21 05:08] VITALS: BP 129/94
[2019-10-21] MEDS: BUDESONIDE (INHALATION) 0.5 MG/2 ML NEB NEB SCH ×2 (05:46→18:06)
[2019-10-21 08:00] VITALS: BP 148/85
[2019-10-21 09:00] VITALS: BP 148/85
--- NOTE | 2019-10-21 09:27 | NUR ---
Respiratory note: PT JUST RETURNED TO ROOM FROM WALKING WITH PT. PT WAS VERY SOB WITH INCREASED WOB. MED NEB TX GIVEN VIA MASK, TOLERATED WELL. SPO2 96%. PT CALMED DOWN QUICKLY. PT REFUSED CPT, STATING WE CAN DO IT ON THE NEXT ROUND.
[2019-10-21] MEDS: DULoxetine HCL 30 MG CAP PO SCH (10:00)
[2019-10-21] MEDS: POTASSIUM CHL 10 Meq TABLET PO SCH ×2 (10:00→21:40)
[2019-10-21] MEDS: predniSONE 20 MG TAB PO SCH (10:00)
[2019-10-21] MEDS: APIXABAN 5 MG TAB PO SCH ×2 (10:00→21:40)
[2019-10-21] MEDS: FAMOTIDINE 20 MG TAB PO SCH ×2 (10:00→21:41)
[2019-10-21 13:00] VITALS: BP 126/80
[2019-10-21 17:01] VITALS: BP 132/91
[2019-10-21 17:17] LABS: Basophils # (auto) 0 10 ^3/uL (0-0.2); Basophils % (auto) 0.4 % (0.0-2.0); Eosinophils # (auto) 0 10 ^3/uL (0-0.8); Eosinophils % (auto) 0.4 % (0.0-7.0); Hematocrit 43.8 % (36.0-46.0); Hemoglobin 14.4 g/dL (12.2-16.2); Lymphocytes # (auto) 0.7 10 ^3/uL (0.4-5.4); Lymphocytes % (auto) 8.4 % (10.0-50.0); Mean Corpuscular Hemoglobin 30.5 pg (28.0-32.0); Mean Corpuscular Hgb Conc. 32.8 g/dL (32.0-36.0); Mean Corpuscular Volume 92.8 fL (80.0-100.0); Monocytes # (auto) 0.3 10 ^3/uL (0-1.3); Monocytes % (auto) 3.9 % (0.0-12.0); Neutrophils # (auto) 7.4 10 ^3/uL (1.6-8.6); Neutrophils % (auto) 86.9 % (37.0-80.0); Platelet Count (auto) 342 10^3/uL (140-450); Red Blood Cells 4.72 10^6/uL (4.0-5.20); Red Cell Distribution Width 15.5 % (11.8-14.3); White Blood Cell 8.5 10^3/uL (4.4-10.8)
[2019-10-21 17:33] LABS: BUN/Creatinine Ratio 37.7; Calcium 9.1 mg/dL (8.5-10.1); Potassium 3.9 mmol/L (3.5-5.1)
--- NOTE | 2019-10-21 20:00 | NUR ---
Opening Shift Note Assumed care of patient. Awake, alert and oriented x4. No S/S of distress or pain. Pt is on 4L NC with SOB on exertion. Instructed on POC and to call for assist PRN. Bed locked, in lowest position, call light within reach, side rails up x2, bedside commode within reach, safety precautions in place. Will continue to monitor for changes Q1hr and PRN.
--- NOTE | 2019-10-21 20:57 | NUR ---
Respiratory note: PT CURRENTLY ON NC4L. PT APPEARS TO BE COMFORTABLE AT THIS TIME. NO RESP DISTRESS NOTED. MED NEB TX ADMINISTERED WITH NO COMPLICATIONS NOTED. PT REFUSED CPT. SPO2 92%, HR 100, RR 20. BS CLEAR/DIMINISHED.
[2019-10-21] MEDS: ATORVASTATIN 20 MG TAB PO SCH (21:41)
--- NOTE | 2019-10-21 21:41 | NUR ---
IV dislodged Fully intact. Pressure gauze applied.
[2019-10-21 22:11] VITALS: BP 128/89
[2019-10-22] VITALS (7 sets, daily range): BP systolic 110–131; BP diastolic 74–86
[2019-10-22] MEDS: IPRATROPIUM BROM 0.5 MG/2.5ML INH SOL NEB SCH ×6 (01:33→22:10)
--- NOTE | 2019-10-22 01:33 | NUR ---
Respiratory note: PT REFUSING BREATHING TX AT THIS TIME AND WANTS TO SLEEP. NO RESP DISTRESS NOTED. PT REMAINS ON NC4L. SPO2 97%, HR 80, RR 18. WILL CONTINUE TO MONITOR PT T/O SHIFT.
[2019-10-22] MEDS: ALBUTEROL SULF 2.5 MG/0.5ML(0.5%) NEB SOLN NEB SCH ×6 (01:34→22:10)
[2019-10-22] MEDS: ACETYLCYSTEINE 10 %(100MG/ML) SOL 4ML NEB SCH ×6 (01:34→22:11)
--- NOTE | 2019-10-22 06:01 | NUR ---
IV insertion IV access obtained, via clean sterile technique by inserting 22 gauge catheter at right hand after 2 attempts. IV secured properly. No trauma to site. Patient tolerated procedure well.
[2019-10-22] MEDS: FUROSEMIDE 20 MG/2 ML VIAL IV SCH ×2 (06:10→18:03)
[2019-10-22] MEDS: SODIUM CHLOR 0.9% PF (SALINE LOCK) 10ML VIAL/SYR IV SCH ×2 (06:10→16:09)
--- NOTE | 2019-10-22 07:55 | NUR ---
Patient resting quietly in bed with no distress noted at this time. Patient stable.
[2019-10-22] MEDS ORDERED: APIX5TAB PO (09:17)
[2019-10-22] MEDS ORDERED: PRED-158 PO (09:17)
[2019-10-22] MEDS ORDERED: PRE5T PO (09:17)
[2019-10-22] MEDS ORDERED: PANT40TA2 PO (09:17)
[2019-10-22] MEDS ORDERED: DULO30CA84 PO (09:17)
[2019-10-22] MEDS: POTASSIUM CHL 10 Meq TABLET PO SCH (10:54)
[2019-10-22] MEDS: DULoxetine HCL 30 MG CAP PO SCH (10:54)
[2019-10-22] MEDS: predniSONE 20 MG TAB PO SCH (10:54)
[2019-10-22] MEDS: FAMOTIDINE 20 MG TAB PO SCH (10:55)
[2019-10-22] MEDS: APIXABAN 5 MG TAB PO SCH (10:55)
--- NOTE | 2019-10-22 10:55 | NUR ---
Patient resting comfortably in bed with no distress noted. Scheduled po medications given per order. Patient stable at this time.
[2019-10-22] MEDS: BUDESONIDE (INHALATION) 0.5 MG/2 ML NEB NEB SCH ×2 (11:00→22:10)
--- NOTE | 2019-10-22 11:00 | NUR ---
WOUND CARE NOTE: IN TO SEE PATIENT AT THIS TIME FOR WOUND RE-EVALUATION. PATIENT HAS CURRENT TRELL SCORE OF 18. SHE CAN SELF TURN/REPOSITION SELF. PATIENT'S SKIN TEAR TO THE LEFT BUTTOCK IS MUCH IMPROVED, ALMOST RESOLVED. WOUND MEASURES 0.8 X .5 CM. APPLIED DRESSING PER MD ORDER. PATIENT EDUCATED ON HOME WOUND CARE AT THIS TIME PATIENT MAY BE DISCHARGING HOME THIS PM. PATIENT VERBALIZED UNDERSTANDING. RECOMMEND: CONTINUATION WITH ALL WOUND CARE ORDERS PREVIOUSLY PRESCRIBED BY MD. WOUND CARE TEAM WILL CONTINUE TO MONITOR. Addendum: 10/22/19 at 1414 by Keturah Lyon RN Amended: Links added.
--- NOTE | 2019-10-22 11:10 | NUR ---
Patient resting in bed with 4L O2 with saturation at 99%. Oxygen was removed and patient ambulated in room with walker assistance. O2 sat immediately began to drop; as low as 80%. Patient ambulated back to bed and resumed O2 at 4L. Saturation returned to the 90's. Patient now sitting on side of bed with no respiratory distress noted. Patient stable.
--- NOTE | 2019-10-22 11:30 | NUR ---
Patient ambulated to bathroom and back to bed. No distress noted.
--- NOTE | 2019-10-22 16:05 | NUR ---
Patient sitting on side of bed with no respiratory distress noted; on 4L O2 and satting at 94%. Removed O2 while patient sat on bed. Within one minute, patients saturation had decreased to 80% and patient was short of breath. Patient put back on O2 and sats increased to 93%. Patient resting comfortably in bed at this time.
--- NOTE | 2019-10-22 16:11 | NUR ---
D/C Planning Per consult for home health and home oxygen. Faxed updated orders to [facility]. Per Sandy with [facility] they have received updated orders and will contact patient daughter Nolvia to set up an appointment within 24-48hrs upon d/c day. Faxed clinical information to [facility]. Per Lida with [facility] portable oxygen has been deliver to bedside and concentrate and nebulizer will be deliver to home upon d/c day. Contact patient daughter Nolvia [phone] advising her patient will be discharging home today. Per Nolvia she will transport patient juan r at 9pm. Informed Charge Nurse Mildred.
--- NOTE | 2019-10-22 18:05 | NUR ---
Scheduled IVP medication given per order. Patient sitting on side of bed with no respiratory distress noted. Patient stable throughout shift.
--- NOTE | 2019-10-22 18:14 | NUR ---
AT BEDSIDE FOR MED NEB TX. PT TOLERATING TX WELL VIA MASK. P[T COMPLAINING OF BACK PAIN, REFUSING CPT AT THIS TIME. RT NAME AND PAGER ASSIGNMENT WRITTEN ON PTS ROOM BOARD. PT AWARE I CAN BE PAGED AT ANY TIME SHE FEELS SOB OR HAVING ANY CONCERN WITH HER BREATHING. WILL CONTINUE TO MONITOR.
[2019-10-22] MEDS: HYDROcodone-ACET 10/325MG TAB PO PRN (18:40)
--- NOTE | 2019-10-22 18:42 | NUR ---
Patient medicated for 8/10 back pain. Patient stable throughout shift.
--- NOTE | 2019-10-22 19:10 | NUR ---
Opening Shift Note Assumed patient care from Lesvia BOOKER. Patient is ready for D/C and awaiting ride. Patient AOx4 and sitting in bed. bed locked in lowest position. Will continue to monitor.
--- NOTE | 2019-10-22 19:56 | NUR ---
Paper work signed for D/C; Patient waiting for daughter to pick her up.
--- NOTE | 2019-10-22 21:00 | NUR ---
Upon entering room patient was holding her right hand and said " I pulled my IV out by accident." Patient cleaned up and site was checked. IV catheter out and no damage to skin. Gauze was added to site and wrapped accordingly.
--- NOTE | 2019-10-22 23:13 | NUR ---
Patient D/C via Wheelchair Patient was taken through ER for pick-up by daughter. Patient AOx4 and sating at 98% on 3L NC adjusted by RT. All belongings taken with patient. No s/s of respiratory distress or pain noted.
[2019-10-23] MEDS ORDERED: APIXABAN 5 MG TAB PO SCH (22:00)
== END 2019-10-22 23:15 | disposition home health service (06) | DRG 871 ==
LOC: ER 17:08 → TELE 17:09 → TELE-EAST 09-12 04:45 → EAST 09-26 09:02 → CENTRAL 09-26 15:32
PROVIDERS: ADMIT Nurse Practitioner; ATTEND Internal Medicine
PROC: XW13325 Transfusion of Convalescent Plasma (Nonautologous) into Peripheral Vein, Percutaneous Approach, New Technology Group 5 (ICD-10-PCS; principal; 2019-09-20)
PROC: 4A023N7 Measurement of Cardiac Sampling and Pressure, Left Heart, Percutaneous Approach (ICD-10-PCS; 2019-10-15)
PROC: B2111ZZ Fluoroscopy of Multiple Coronary Arteries using Low Osmolar Contrast (ICD-10-PCS; 2019-10-15)
PROC: B2151ZZ Fluoroscopy of Left Heart using Low Osmolar Contrast (ICD-10-PCS; 2019-10-15)
DX: A41.89 Other specified sepsis (principal); U07.1 COVID-19; J12.89 Other viral pneumonia; J96.01 Acute respiratory failure with hypoxia; E44.1 Mild protein-calorie malnutrition; R04.2 Hemoptysis; I50.22 Chronic systolic (congestive) heart failure; I82.411 Acute embolism and thrombosis of right femoral vein; E66.9 Obesity, unspecified; F06.4 Anxiety disorder due to known physiological condition; J01.00 Acute maxillary sinusitis, unspecified; K59.00 Constipation, unspecified; E87.6 Hypokalemia; Z68.32 Body mass index [BMI] 32.0-32.9, adult; I11.0 Hypertensive heart disease with heart failure; I25.10 Atherosclerotic heart disease of native coronary artery without angina pectoris; R04.0 Epistaxis
CPT/HCPCS: 36415; 36600; 71045; 71275; 73562; 78452; 80048; 80053; 80061; 81001; 82728; 82805; 83516; 83520; 83605; 83615; 83735; 83880; 84132; 84439; 84443; 84450; 84460; 84484; 84550; 85025; 85379; 85610; 85730; 86141; 86225; 86235; 86256; 86606; 86612; 86635; 86698; 86850; 86900; 86901; 87040; 87804; 93017; 93306; 93458; 93970; 94640; 94667; 94668; 96361; 96365; 96366; 97110; 97116; 97163; 97530; 99152; 99291; G0378; J0153; J1100; J2250; J2405; J3490

== ENCOUNTER → 2019-11-20 | Outpatient (CLI) | payer MEDICARE, MEDICAID ==
[~2019-11-20] MED LIST: ALB5IS NEB; ALBUAER3 IN; ALBUTEROL SULF 2.5 MG/0.5ML(0.5%) NEB SOLN ONE; AMLO5TAB15 PO; APIX5TAB PO; ASCO500T11 PO; ASPI-394 PO; BUDE0.5S IN; CHOL20007 PO; DEXT1SYP9 PO; DULO30CA84 PO; FURO20TA3 PO; PANT40TA2 PO; POTA1TAB61 PO; PRE5T PO; PRED-158 PO
== END | disposition home or self-care (01) ==
LOC: RT 09:43
PROVIDERS: ATTEND Internal Medicine Pulmonary Disease
DX: U07.1 COVID-19 (principal); I50.22 Chronic systolic (congestive) heart failure
CPT/HCPCS: 94060; 94618; 94727; 94729

== ENCOUNTER 2019-12-12 15:33 | Inpatient (IN) | payer MEDICARE, MEDICAID ==
[~2019-12-12] VITALS: Ht 160 cm; Wt 78.7 kg
[~2019-12-12 15:33] MED LIST changes: -ALBUTEROL SULF 2.5 MG/0.5ML(0.5%) NEB SOLN ONE
[2019-12-12] MEDS ORDERED: SODIUM CHLORIDE 0.9% 1,000 ML IV ONE (15:45)
[2019-12-12 16:21] LABS: Basophils # (auto) 0.1 10 ^3/uL (0-0.2); Basophils % (auto) 0.6 % (0.0-2.0); Eosinophils # (auto) 0 10 ^3/uL (0-0.8); Eosinophils % (auto) 0.4 % (0.0-7.0); Hemoglobin 13.5 g/dL (12.2-16.2); Lymphocytes # (auto) 1.1 10 ^3/uL (0.4-5.4); Lymphocytes % (auto) 11.7 % (10.0-50.0); Mean Corpuscular Hemoglobin 30.7 pg (28.0-32.0); Mean Corpuscular Hgb Conc. 33.1 g/dL (32.0-36.0); Mean Corpuscular Volume 92.9 fL (80.0-100.0); Monocytes # (auto) 0.5 10 ^3/uL (0-1.3); Monocytes % (auto) 5.5 % (0.0-12.0); Neutrophils # (auto) 7.6 10 ^3/uL (1.6-8.6); Neutrophils % (auto) 81.8 % (37.0-80.0); Platelet Count (auto) 246 10^3/uL (140-450); Red Blood Cells 4.41 10^6/uL (4.0-5.20); Red Cell Distribution Width 14.1 % (11.8-14.3); White Blood Cell 9.3 10^3/uL (4.4-10.8)
[2019-12-12 16:39] LABS: Alanine Aminotransferase 35 U/L (13-56); Albumin 3.6 g/dL (3.4-5.0); Anion Gap 5 (5-15); Blood Urea Nitrogen 12 mg/dL (7-18); Calcium 8.7 mg/dL (8.5-10.1); Carbon Dioxide 30 mmol/L (21-32); Chloride 106 mmol/L (98-107); Glucose 112 mg/dL (74-106); Lipase 128 U/L (73-393); Magnesium 2.3 mg/dL (1.6-2.6); Potassium 3.3 mmol/L (3.5-5.1); Sodium 141 mmol/L (136-145)
[2019-12-12 16:46] LABS: Alkaline Phosphatase 77 U/L (45-117); Aspartate Aminotransferase 23 U/L (15-37); BUN/Creatinine Ratio 23.5; Bilirubin, Total 0.3 mg/dL (0.2-1.0); GFR African American 156 mL/min; GFR Non-African American 129 mL/min; Total Protein 7.7 g/dL (6.4-8.2)
[2019-12-12] MEDS ORDERED: ONDANSETRON HCL 4 MG/2 ML VIAL IV ONE (18:30)
[2019-12-12] MEDS ORDERED: MORPHINE SULF INJ 2 MG/ML SYRINGE 1ML IV ONE (18:30)
[2019-12-12] MEDS ORDERED: LORazepam 2MG/ML-1ML VIAL IV PRN (20:00)
[2019-12-12] MEDS ORDERED: NITROGLYCERIN 0.4 MG SL TAB SL PRN (20:00)
[2019-12-12] MEDS ORDERED: MORPHINE SULF INJ 2 MG/ML SYRINGE 1ML IV PRN (20:00)
[2019-12-12] MEDS: SOD CHL 0.9%/ KCL 20MEQ 1,000 ML IV SCH (20:00)
[2019-12-12] MEDS ORDERED: LABETALOL HCL 5 MG/ML 4ML SYRINGE IV PRN (20:00)
[2019-12-12 20:29] LABS: Urine WBC None Seen /hpf (0 - 5)
[2019-12-12 20:41] LABS: Urine Bacteria MOD /hpf (None Seen); Urine Blood Negative /uL (Negative); Urine Mucus FEW (None Seen); Urine Specific Gravity 1.013 (1.001-1.035)
[2019-12-12 22:34] VITALS: BP 121/96
--- NOTE | 2019-12-12 22:55 | NUR ---
MS admit from ER RUDDY TEAGUE admitted to MS after NO SBAR received. Patient oriented to primary RN, unit, room, bed, and unit policies regarding patient care and visiting hours. Patient weighed by bedscale and encouraged to call if they need something. All questions and concerns addressed, patient verbalized understanding. Bed in lowest locked position, call light within reach, side rails up x2, fall precautions in place. Will continue to monitor Q1hr and PRN.
[2019-12-12] MEDS: BUDESONIDE (INHALATION) 0.5 MG/2 ML NEB NEB SCH (22:56)
[2019-12-13] VITALS (7 sets, daily range): BP systolic 103–139; BP diastolic 66–92
[2019-12-13] MEDS ORDERED: INFLUENZA QUAD 2020-2021 0.5 ML SYRG IM ONE
--- NOTE | 2019-12-13 05:10 | NUR ---
IV insertion IV access obtained, via clean sterile technique by inserting 22 gauge catheter at left wrist after 2 attempt(s). IV secured properly. No trauma to site. Patient tolerated procedure well. Note: Previous IV accidently pulled out. Catheter intact, pressure dressing applied.
[2019-12-13] MEDS: ONDANSETRON HCL 4 MG/2 ML VIAL IV PRN ×2 (05:20→11:22)
[2019-12-13] MEDS: HYDROmorphone HCL 2 MG/ML VL IV PRN ×6 (05:20→21:34)
[2019-12-13] MEDS: ALBUTEROL SULF 2.5 MG/0.5ML(0.5%) NEB SOLN NEB PRN (06:22)
[2019-12-13] MEDS: BUDESONIDE (INHALATION) 0.5 MG/2 ML NEB NEB SCH ×2 (06:22→22:43)
[2019-12-13 06:58] LABS: INR 1.01 (0.9-1.15)
--- NOTE | 2019-12-13 07:15 | NUR ---
Opening Shift Note Assumed care of patient, awake and alert. No S/S of distress/SOB or pain. Instructed on POC and to call for assist PRN, will continue to monitor for changes Q1hr and PRN. Bed locked in lowest position, HOB elevated at least 30 degrees, call light within reach and side rails up x 2.
[2019-12-13] MEDS: PANTOPRAZOLE 40 MG/10 ML VIAL INJ IV SCH (09:14)
[2019-12-13] MEDS: SOD CHL 0.9%/ KCL 20MEQ 1,000 ML IV SCH ×2 (09:14→22:40)
[2019-12-13] MEDS ORDERED: PIPERACILLIN-TAZO 4.5GM 100 ML IV ONE (12:45)
[2019-12-13] MEDS ORDERED: POTASSIUM CHLORIDE 20 MEQ, LIDOCAINE 1% (LOCAL ANESTH.) 2 ML in SODIUM CHL 0.9% 100 ML IV ONE (12:45)
--- NOTE | 2019-12-13 13:27 | NUR ---
MD ROUNDS DR METCALF AT BEDSIDE. NEW ORDERS RECEIVED FOR CLEAR LIQUID DIET. CONTINUE CARE.
[2019-12-13] MEDS ORDERED: MAGNESIUM CITRATE SOLUTION 300 ML BTL PO ONE (14:15)
--- NOTE | 2019-12-13 19:44 | NUR ---
CLOSING NOTE ENDORSED CARE TO NOC SHIFT RN
[2019-12-13] MEDS ORDERED: ENOXAPARIN SOD 80 MG/0.8ML SYRINGE SC SCH (22:00)
--- NOTE | 2019-12-13 22:43 | NUR ---
RT NOTE PT SEEN BY RT FOR SCHEDULED TX. PT STATED THEY FEEL FINE AND DON'T LIKE THE TX BECAUSE IT MAKE THEM FEEL SHAKY. RT EXPLAINED THAT THE PULMICORT SHOULDN'T DO THAT TO THEM, BUT THEY STATED THEY WERE OK RIGHT NOW. PT KNOWS THE HAVE RT PAGED IF THEY CHANGE THEIR MIND. RT NAME AND PAGER NUMBER ON PT BOARD. PT SPO2 98% ON 3LPM NC. PT STATED THEY USE 2LPM AT HOME AND REQUESTED THAT THEY BE PLACED ON 2LPM O2. RT TITRATED O2 TO 2LPM. PT STILL HAS A SAT OF 97% ON THE 2LPM.
[2019-12-14] MEDS: HYDROmorphone HCL 2 MG/ML VL IV PRN ×6 (00:48→23:11)
[2019-12-14 05:00] VITALS: BP 128/88
[2019-12-14] MEDS: PIPERACILLIN-TAZOB 3.375GM 100 ML IV SCH ×5 (05:48→23:44)
--- NOTE | 2019-12-14 07:20 | NUR ---
Opening Shift Note Assumed care of patient resting in bed with eyes closed. Respirations even and unlabored at this time. Will continue to monitor for changes Q1hr and PRN. Bed locked in lowest position, HOB elevated at least 30 degrees, call light within reach and side rails up x 2.
[2019-12-14 07:39] LABS: Potassium 3.4 mmol/L (3.5-5.1)
[2019-12-14 07:43] LABS: Albumin 2.7 g/dL (3.4-5.0); BUN/Creatinine Ratio 24.1; Calcium 8.5 mg/dL (8.5-10.1)
[2019-12-14 07:44] LABS: Basophils # (auto) 0 10 ^3/uL (0-0.2); Basophils % (auto) 0.1 % (0.0-2.0); Eosinophils # (auto) 0 10 ^3/uL (0-0.8); Hemoglobin 12.8 g/dL (12.2-16.2); Lymphocytes # (auto) 0.9 10 ^3/uL (0.4-5.4); Lymphocytes % (auto) 3.7 % (10.0-50.0); Mean Corpuscular Hemoglobin 30.6 pg (28.0-32.0); Mean Corpuscular Hgb Conc. 32.8 g/dL (32.0-36.0); Mean Corpuscular Volume 93.2 fL (80.0-100.0); Monocytes # (auto) 2.4 10 ^3/uL (0-1.3); Monocytes % (auto) 10.2 % (0.0-12.0); Neutrophils # (auto) 20.4 10 ^3/uL (1.6-8.6); Platelet Count (auto) 193 10^3/uL (140-450); Red Blood Cells 4.18 10^6/uL (4.0-5.20); Red Cell Distribution Width 14.7 % (11.8-14.3); White Blood Cell 23.7 10^3/uL (4.4-10.8)
[2019-12-14 07:47] LABS: Bilirubin, Total 1.4 mg/dL (0.2-1.0); Total Protein 6.9 g/dL (6.4-8.2)
[2019-12-14 08:00] VITALS: BP 116/69
[2019-12-14 08:52] VITALS: BP 116/69
[2019-12-14] MEDS: BUDESONIDE (INHALATION) 0.5 MG/2 ML NEB NEB SCH ×2 (09:40→22:05)
[2019-12-14] MEDS: PANTOPRAZOLE 40 MG/10 ML VIAL INJ IV SCH (09:40)
[2019-12-14] MEDS: ONDANSETRON HCL 4 MG/2 ML VIAL IV PRN ×2 (10:05→20:11)
--- NOTE | 2019-12-14 10:27 | NUR ---
SPOKE WITH DR ABBASI REGARDING ECHOCARDIOGRAM TO BE ORDERED, HOWEVER SPOKE WITH ECHOCARDIOGRAM MAT PACKER AND WAS INSTRUCTED THAT ANOTHER ECHOCARDIOGRAM CANNOT BE PERFORMED UNLESS A SCHOOL COMMUNITY RELATIONS COORDINATOR REQUESTS A NEW ECHOCARDIOGRAM WITHIN SIX MONTHS OF THE LAST ECHOCARDIOGRAM. IF NO SCHOOL COMMUNITY RELATIONS COORDINATOR REQUESTS ANOTHER ECHOCARDIOGRAM WITHIN THAT TIME FRAME, A NEW ECHOCARDIOGRAM CANNOT BE PERFORMED.
--- NOTE | 2019-12-14 10:43 | NUR ---
SPOKE WITH DR ABBASI REGARDING ECHOCARDIOGRAM ORDERS. INSTRUCTED TO INPUT ORDERS FOR CARDIOLOGY CONSULT WITH RECREATION THERAPY DIRECTOR DIESEL POWER SHOVEL OPERATOR.
[2019-12-14] MEDS: SOD CHL 0.9%/ KCL 20MEQ 1,000 ML IV SCH (12:00)
[2019-12-14 12:24] VITALS: BP 122/62
--- NOTE | 2019-12-14 13:30 | NUR ---
SPOKE WITH MAYUR GALLARDO REGARDING CARDIOLOGY CONSULT. MAYUR VERBALZIED THAT SHE WOULD GIVE CARDIAC CLEARANCE FOR A NEW ECHO TO BE PERFORMED BEFORE THIS PATIENT HAS HER PROCEDURE TOMORROW.
--- NOTE | 2019-12-14 16:14 | NUR ---
DR COSBY AT BEDSIDE. DR COSBY VERBALIZED THAT HE WOULD PUT IN ORDERS FOR LOWER EXTREMITY VENOUS DOPPLER.
[2019-12-14] MEDS ORDERED: POTASSIUM EFFERVESENT TAB 25 MEQ PO ONE (16:15)
--- NOTE | 2019-12-14 16:29 | NUR ---
POTASSIUM EFFERVESCENT TABLET HELD PER DR. COSBY'S REQUEST DUE TO THE PATIENT ALREADY ON CONTINUOUS FLUIDS CONTAINING POTASSIUM.
[2019-12-14 16:52] VITALS: BP 106/67
--- NOTE | 2019-12-14 19:29 | NUR ---
CLOSING NOTE ENDORSED CARE TO NOC SHIFT RN
--- NOTE | 2019-12-14 19:30 | NUR ---
OPENING NOTE Received report from day shift RN. Patient is A&O X's 4 with no s/s of distress. Patient reports right upper quadrant abdominal pain 10/10. Will provide pain medication as ordered. Educated patient on POC and to use call light when in need of any assistance and not to drink/eat anything after midnight for procedure in AM. Patient verbalized understanding. Bed is in lowest/locked position with side rails up X's 2 and call light is within reach of patient. Will continue care.
[2019-12-14 21:00] VITALS: BP 122/49
[2019-12-14] MEDS: ALBUTEROL SULF 2.5 MG/0.5ML(0.5%) NEB SOLN NEB PRN (22:05)
[2019-12-15] VITALS (7 sets, daily range): BP systolic 115–134; BP diastolic 59–85
--- NOTE | 2019-12-15 | NUR ---
PATIENT NPO fluids and food removed from bedside. Patient aware. Patient is currently resting in bed with eyes closed. No s/s of discomfort noted. Will continue care.
[2019-12-15] MEDS: SOD CHL 0.9%/ KCL 20MEQ 1,000 ML IV SCH ×2 (01:20→13:20)
[2019-12-15] MEDS: HYDROmorphone HCL 2 MG/ML VL IV PRN ×3 (03:55→17:42)
[2019-12-15] MEDS: ONDANSETRON HCL 4 MG/2 ML VIAL IV PRN ×3 (04:12→17:43)
--- NOTE | 2019-12-15 04:26 | NUR ---
CHG CHG WIPES DONE. JEWELRY REMOVED. LINEN CHANGE
[2019-12-15] MEDS: PIPERACILLIN-TAZOB 3.375GM 100 ML IV SCH ×3 (05:42→17:42)
[2019-12-15 06:16] LABS: Basophils # (auto) 0 10 ^3/uL (0-0.2); Basophils % (auto) 0.1 % (0.0-2.0); Eosinophils # (auto) 0 10 ^3/uL (0-0.8); Hemoglobin 12.2 g/dL (12.2-16.2); Lymphocytes # (auto) 0.7 10 ^3/uL (0.4-5.4); Lymphocytes % (auto) 3.6 % (10.0-50.0); Mean Corpuscular Hemoglobin 30.8 pg (28.0-32.0); Mean Corpuscular Hgb Conc. 33.1 g/dL (32.0-36.0); Mean Corpuscular Volume 93.1 fL (80.0-100.0); Monocytes # (auto) 1.9 10 ^3/uL (0-1.3); Monocytes % (auto) 9.5 % (0.0-12.0); Neutrophils # (auto) 17.6 10 ^3/uL (1.6-8.6); Neutrophils % (auto) 86.8 % (37.0-80.0); Platelet Count (auto) 161 10^3/uL (140-450); Red Blood Cells 3.97 10^6/uL (4.0-5.20); Red Cell Distribution Width 14.5 % (11.8-14.3); White Blood Cell 20.2 10^3/uL (4.4-10.8)
[2019-12-15 06:31] LABS: INR 1.08 (0.9-1.15); Partial Thromboplastin Time 32.7 sec (23.0-31.2)
[2019-12-15 06:41] LABS: Potassium 3.3 mmol/L (3.5-5.1)
[2019-12-15 06:55] LABS: BUN/Creatinine Ratio 27.3; Calcium 8.9 mg/dL (8.5-10.1)
--- NOTE | 2019-12-15 07:50 | NUR ---
RECEIVED PATIENT ALERT AND ORIENTED X4, NOT IN DISTRESS, WHEEZING LS IN BILATERAL LUNG LOBES, RR=18 SAT=95%, DEEP BREATHING AND COUGHING WAS ENCOURAGED, DEMONSTRATED UNDERSTANDING, DENIED CHEST PAIN AND SOB, HEART R=82, ABDOMEN SOFT WITH ACTIVE BS, KEEP NPO ORDERED, LAST BM THIS MORNING REPORTED, SKIN INTACT WARM TO TOUCH, RADIAL AND PEDAL PULSES PALPABLE, CAP REFILL <3 SECONDS, RESTING ON BED, HEAD OF BED ELEVATED, BED ON LOW POSITION, RAILS UP X2, CALL LIGHT ON REACH, OR ORDERED, WILL CONTINUE MONITORING.
--- NOTE | 2019-12-15 08:10 | NUR ---
PRE OP CONTACTED FOR PENDING PROCEDURE TIME, NO SCHEDULE TIME SET WAITING FOR DR. BABASI TO COME REPORTED, WILL CONTINUE MONITORING.
[2019-12-15] MEDS: PANTOPRAZOLE 40 MG/10 ML VIAL INJ IV SCH (10:16)
[2019-12-15] MEDS: ALBUTEROL SULF 2.5 MG/0.5ML(0.5%) NEB SOLN NEB PRN ×2 (10:32→22:29)
[2019-12-15] MEDS: BUDESONIDE (INHALATION) 0.5 MG/2 ML NEB NEB SCH ×2 (10:32→22:29)
[2019-12-15] MEDS ORDERED: POTASSIUM CHLORIDE 20 MEQ, LIDOCAINE 1% (LOCAL ANESTH.) 2 ML in SODIUM CHL 0.9% 100 ML IV ONE (11:15)
--- NOTE | 2019-12-15 14:10 | NUR ---
Nutrition Assessment Notes please see attached link for complete assessment Est energy needs ABW 69 [id number] kcal (23-25 kcal/kg ABW) Est protein needs: 69-75 g (1-1.1 g/kg ABW) Will reassess prn. Addendum: 12/15/19 at [address] Amended: Links added.
--- NOTE | 2019-12-15 19:37 | NUR ---
OPENING NOTE Received report from day shift RN. Patient is currently resting in bed with eyes closed and shows no s/s of distress or discomfort. Will educate patient on POC. Bed is in lowest/locked position with side rails up X's 2 and call light is within reach of patient. Will continue care.
--- NOTE | 2019-12-15 23:27 | NUR ---
SPOKE WITH PATIENT'S DAUGHTER DAUGHTER, EMERY CALLED. PASSWORD WAS OBTAINED . SHE WAS UPDATED ON POC FOR HER MOTHER AND ALL QUESTIONS WERE ANSWERED AT THIS TIME.
--- NOTE | 2019-12-16 | NUR ---
PATIENT NPO PATIENT NPO AND VERBALIZED UNDERSTANDING.
[2019-12-16] MEDS: HYDROmorphone HCL 2 MG/ML VL IV PRN ×5 (00:01→17:06)
[2019-12-16] MEDS: PIPERACILLIN-TAZOB 3.375GM 100 ML IV SCH ×3 (00:01→16:59)
[2019-12-16] MEDS: ONDANSETRON HCL 4 MG/2 ML VIAL IV PRN ×2 (00:01→08:58)
[2019-12-16] MEDS: SOD CHL 0.9%/ KCL 20MEQ 1,000 ML IV SCH ×2 (04:00→17:01)
[2019-12-16 05:00] VITALS: BP 107/43
[2019-12-16 06:17] LABS: Basophils # (auto) 0 10 ^3/uL (0-0.2); Basophils % (auto) 0.1 % (0.0-2.0); Eosinophils # (auto) 0 10 ^3/uL (0-0.8); Eosinophils % (auto) 0.1 % (0.0-7.0); Hematocrit 35.4 % (36.0-46.0); Hemoglobin 11.6 g/dL (12.2-16.2); Lymphocytes # (auto) 0.6 10 ^3/uL (0.4-5.4); Lymphocytes % (auto) 3.2 % (10.0-50.0); Mean Corpuscular Hemoglobin 30.7 pg (28.0-32.0); Mean Corpuscular Hgb Conc. 32.8 g/dL (32.0-36.0); Mean Corpuscular Volume 93.6 fL (80.0-100.0); Monocytes # (auto) 2.5 10 ^3/uL (0-1.3); Monocytes % (auto) 12.9 % (0.0-12.0); Neutrophils # (auto) 15.9 10 ^3/uL (1.6-8.6); Neutrophils % (auto) 83.7 % (37.0-80.0); Platelet Count (auto) 152 10^3/uL (140-450); Red Blood Cells 3.79 10^6/uL (4.0-5.20); Red Cell Distribution Width 14.5 % (11.8-14.3)
--- NOTE | 2019-12-16 06:23 | NUR ---
PAIN REASSESSMENT patient reports no more pain at this time
[2019-12-16 06:32] LABS: Calcium 8.5 mg/dL (8.5-10.1); Potassium 3.3 mmol/L (3.5-5.1)
[2019-12-16 06:34] LABS: BUN/Creatinine Ratio 24.4
[2019-12-16] MEDS: BUDESONIDE (INHALATION) 0.5 MG/2 ML NEB NEB SCH ×2 (07:00→22:50)
[2019-12-16] MEDS: ALBUTEROL SULF 2.5 MG/0.5ML(0.5%) NEB SOLN NEB PRN ×2 (07:00→22:50)
--- NOTE | 2019-12-16 08:10 | NUR ---
Opening Note Assumed care of patient, she is A & O x4, primarily bhutanese speaking. Patient is tachypnic with 10/10 pain, and nausea. Patient is NPO at this time. Will medicate per orders. Educated patient to slow breathing to prevent hyperventilation.
[2019-12-16] MEDS: PANTOPRAZOLE 40 MG/10 ML VIAL INJ IV SCH (08:59)
[2019-12-16 09:00] VITALS: BP 134/80
[2019-12-16] MEDS ORDERED: POTASSIUM CHL 10 Meq TABLET PO ONE (12:15)
--- NOTE | 2019-12-16 12:40 | NUR ---
Patient to Bag Repairer for procedure. Handoff to Bag Repairer RN
[2019-12-16 13:00] VITALS: BP 115/77
[2019-12-16] MEDS ORDERED: IODIXANOL 320MG/ML 100ML BTL IV ONE (13:24)
[2019-12-16] MEDS ORDERED: fentaNYL CITRATE 100 MCG/2 ML VL ONE (13:24)
[2019-12-16] MEDS ORDERED: MIDAZOLAM HCL 1MG/1ML-2 ML VIAL ONE (13:24)
[2019-12-16] MEDS ORDERED: LIDOCAINE 2%HCL (LOCAL ANESTH.) INJ 20ML MDV ONE (13:24)
--- NOTE | 2019-12-16 15:30 | NUR ---
Home Health Contact [facility] [phone] FAX [phone] DONITA contact Addendum: 12/16/19 at 1533 by Franchesca Montes RN Will be available upon discharge in 24-48 hours.
[2019-12-16 17:00] VITALS: BP 121/68
--- NOTE | 2019-12-16 19:11 | NUR ---
Opening Shift Note Assumed care of patient after receiving report from. Patient is awake and alert with no S/S of distress/SOB or pain. Call light within reach, HOB semi fowlers, bed in lowest locked position x2 side rails. Instructed on POC and to call for assist PRN, will continue to monitor for changes Q1hr and PRN.
[2019-12-16 22:00] VITALS: BP 107/74
[2019-12-17] MEDS: PIPERACILLIN-TAZOB 3.375GM 100 ML IV SCH ×4 (00:40→18:47)
[2019-12-17] MEDS: HYDROmorphone HCL 2 MG/ML VL IV PRN ×4 (04:20→15:39)
--- NOTE | 2019-12-17 04:41 | NUR ---
150ml of brown bilious fluid drained from drain bag. Patient tolerated intervention well. Will continue to monitor.
[2019-12-17 05:00] VITALS: BP 116/77
[2019-12-17 05:58] LABS: Basophils # (auto) 0 10 ^3/uL (0-0.2); Basophils % (auto) 0.2 % (0.0-2.0); Eosinophils # (auto) 0.2 10 ^3/uL (0-0.8); Eosinophils % (auto) 1.5 % (0.0-7.0); Hematocrit 33.2 % (36.0-46.0); Hemoglobin 10.9 g/dL (12.2-16.2); Lymphocytes # (auto) 1.1 10 ^3/uL (0.4-5.4); Lymphocytes % (auto) 8.4 % (10.0-50.0); Mean Corpuscular Hemoglobin 30.7 pg (28.0-32.0); Mean Corpuscular Hgb Conc. 32.8 g/dL (32.0-36.0); Mean Corpuscular Volume 93.6 fL (80.0-100.0); Monocytes # (auto) 1.7 10 ^3/uL (0-1.3); Monocytes % (auto) 12.7 % (0.0-12.0); Neutrophils # (auto) 10.2 10 ^3/uL (1.6-8.6); Neutrophils % (auto) 77.2 % (37.0-80.0); Platelet Count (auto) 132 10^3/uL (140-450); Red Blood Cells 3.55 10^6/uL (4.0-5.20); Red Cell Distribution Width 14.9 % (11.8-14.3); White Blood Cell 13.2 10^3/uL (4.4-10.8)
[2019-12-17] MEDS: SOD CHL 0.9%/ KCL 20MEQ 1,000 ML IV SCH ×2 (06:04→20:00)
[2019-12-17 06:22] LABS: Calcium 8.8 mg/dL (8.5-10.1); Potassium 3.1 mmol/L (3.5-5.1)
[2019-12-17 06:24] LABS: BUN/Creatinine Ratio 27.5
--- NOTE | 2019-12-17 08:10 | NUR ---
Opening Note Assumed care of patient, she is A & O x4, no s/s of distress at this time. Patient states she has a 5/10 pain. Will medicate per orders. Patient cystostomy tube is draining brown fluid with some serosanguinous drainage, 5 ml at this time, will continue to monitor.
[2019-12-17 09:00] VITALS: BP 114/80
[2019-12-17] MEDS: BUDESONIDE (INHALATION) 0.5 MG/2 ML NEB NEB SCH ×2 (10:00→23:01)
[2019-12-17] MEDS ORDERED: LACTULOSE 20Gm/30ML SOLN PO ONE (10:45)
[2019-12-17] MEDS ORDERED: LACTULOSE 20Gm/30ML SOLN PO PRN (10:45)
[2019-12-17] MEDS ORDERED: POTASSIUM CHL 10 Meq TABLET PO ONE (10:45)
[2019-12-17] MEDS: PANTOPRAZOLE 40 MG/10 ML VIAL INJ IV SCH (11:13)
[2019-12-17] MEDS: ONDANSETRON HCL 4 MG/2 ML VIAL IV PRN (11:15)
[2019-12-17 13:00] VITALS: BP 115/72
--- NOTE | 2019-12-17 15:40 | NUR ---
Patient had a large BM.
--- NOTE | 2019-12-17 16:17 | NUR ---
Nutrition Followup Notes Pt wt is 86.7 kg Pt was sleeping at time of rounds. Pt is with a Full Liquid diet, appetite is improved and adequate aeb ave 88% PO intake x2 meals today per RN doc. Pt with no s/s of distress. Est energy needs ABW 69 [id number] kcal (23-25 kcal/kg ABW) Est protein needs: 69-75 g (1-1.1 g/kg ABW) Will reassess prn. LABS: Creat 0.40 L, K 3.1 L, Alb 2.7 L GI: Pt had 2 BMs today oer RN doc. BS: 20 low risk. Refer to Wound Assessment report for further details. PES: Decreased nutrient needs r/t adiposity aeb pt`s high BMI of 34.2kgm2 Comments 1) Advance diet as medically feasible 2) Refer to OPD dietitian 3) Continue current plan of care
[2019-12-17 17:31] VITALS: BP 100/74
--- NOTE | 2019-12-17 18:50 | NUR ---
Drainage output total of 275 ml brown to light kaushik fluid with some streaks of red blood.
--- NOTE | 2019-12-17 19:20 | NUR ---
Opening Shift Note Assumed care of patient after receiving report from day RN. Patient is awake and alert, resting in bed comfortably with no S/S of distress/SOB or pain. Call light within reach, bed in lowest locked position x2 side rails up for safety. Instructed on POC and to call for assist PRN, will continue to monitor for changes Q1hr and PRN.
[2019-12-17 21:30] VITALS: BP 126/56
[2019-12-17] MEDS: ALBUTEROL SULF 2.5 MG/0.5ML(0.5%) NEB SOLN NEB PRN (23:01)
[2019-12-18] MEDS: PIPERACILLIN-TAZOB 3.375GM 100 ML IV SCH ×4 (00:10→18:44)
[2019-12-18] MEDS: HYDROmorphone HCL 2 MG/ML VL IV PRN ×2 (00:39→04:23)
[2019-12-18] MEDS: ONDANSETRON HCL 4 MG/2 ML VIAL IV PRN ×2 (04:22→11:11)
--- NOTE | 2019-12-18 04:27 | NUR ---
Cholecystostomy drain output At this time, a total of 100 ml of kaushik bilious output with minimal streaks of red blood from cholecystostomy catheter.
[2019-12-18 05:00] VITALS: BP 122/75
[2019-12-18 06:59] LABS: Basophils # (auto) 0 10 ^3/uL (0-0.2); Basophils % (auto) 0.3 % (0.0-2.0); Eosinophils # (auto) 0.2 10 ^3/uL (0-0.8); Eosinophils % (auto) 1.8 % (0.0-7.0); Hematocrit 33.7 % (36.0-46.0); Hemoglobin 11.2 g/dL (12.2-16.2); Lymphocytes # (auto) 1.7 10 ^3/uL (0.4-5.4); Lymphocytes % (auto) 15.4 % (10.0-50.0); Mean Corpuscular Hemoglobin 30.8 pg (28.0-32.0); Mean Corpuscular Hgb Conc. 33.3 g/dL (32.0-36.0); Mean Corpuscular Volume 92.7 fL (80.0-100.0); Monocytes # (auto) 1.5 10 ^3/uL (0-1.3); Monocytes % (auto) 13.5 % (0.0-12.0); Neutrophils # (auto) 7.5 10 ^3/uL (1.6-8.6); Platelet Count (auto) 161 10^3/uL (140-450); Red Blood Cells 3.64 10^6/uL (4.0-5.20); Red Cell Distribution Width 14.7 % (11.8-14.3); White Blood Cell 10.9 10^3/uL (4.4-10.8)
[2019-12-18 07:19] LABS: Albumin 1.8 g/dL (3.4-5.0); Calcium 8.6 mg/dL (8.5-10.1)
[2019-12-18 07:24] LABS: BUN/Creatinine Ratio 17.8; Bilirubin, Total 0.5 mg/dL (0.2-1.0); Total Protein 5.6 g/dL (6.4-8.2)
[2019-12-18] MEDS: BUDESONIDE (INHALATION) 0.5 MG/2 ML NEB NEB SCH (07:33)
[2019-12-18 08:00] VITALS: BP 121/69
[2019-12-18 08:53] VITALS: BP 121/69
[2019-12-18] MEDS: PANTOPRAZOLE 40 MG/10 ML VIAL INJ IV SCH (09:53)
[2019-12-18 13:00] VITALS: BP 124/78
--- NOTE | 2019-12-18 13:15 | NUR ---
DR. MEJIA SAW PATIENT AND LEFT ORDER FOR PATIENT DISCHARGE. PATIENT MADE AWARE OF SAME.
--- NOTE | 2019-12-18 13:51 | NUR ---
This is a 64-year-old woman, who is alert and oriented. Patient cognitive abilities are intact. Patient stated that her family assist her with all ADLs needs. Patient stated that she lives with her daughter Margie Butt. Patient stated that she uses a walker for ambulatory assistance. Patient stated that she uses oxygen at home. Patient stated that her source of income is social security and pension. Patient stated that she will return home post discharge. Patient stated that her daughter has transportation to take her home post discharge. Patient was receptive to receive information about Advance Directive and POA forms. Patient stated that her daughter is her support system. Discharge planning: SW will request for home health services for bathing purposes and physical therapy for ambulation. SW will provide information for Advance Directive and POA forms. Patient will resume to her previous services for home oxygen therapy post discharge. Addendum: 12/18/19 at 1351 by AL PEÑALOZA SS Amended: Links added.
[2019-12-18] MEDS ORDERED: POTASSIUM CHL 20 Meq TABLET PO ONE (14:00)
--- NOTE | 2019-12-18 15:15 | NUR ---
PATTI WHITE WANTED TO KNOW IF PATIENT'S FAMILY COULD BRING HER PORTABLE O2 WITH THEM WHEN THEY PICK PATIENT UP. I ASKED PATIENT ABOUT IT AND SHE STATED THAT SHE WILL ASK HER DAUGHTER TO BRING IT TONIGHT AFTER 1999 HER DAUGHTER IS COMING HOME FROM WORK IN [place].
--- NOTE | 2019-12-18 15:20 | NUR ---
PHONED PATIENT'S DAUGHTER EMERY TO CONFIRM THAT SHE WILL BRING THE PATIENT'S PORTABLE HOME O2 WHEN SHE PICKS HER UP TONIGHT AND SHE STATED THAT SHE WILL. SHE ALSO ASKED MD TO CALL HER AND MESSAGE LEFT FOR DR. MEJIA TO CALL. PATIENT'S DAUGHTER.
--- NOTE | 2019-12-18 15:25 | NUR ---
LEFT MESSAGE TO PATTI BY PHONE THAT PATIENT'S DAUGHTER WILL BRING THE O2 WHEN SHE PICKS HER UP TONIGHT.
[2019-12-18] MEDS ORDERED: HYDROcodone-ACET 5/325MG TAB PO PRN (15:45)
--- NOTE | 2019-12-18 15:48 | NUR ---
D/C Planning Per social service consult to resume home oxygen and resume home health service for physical therapy, cholecystostomy drainage care, vitals and medication management. Faxed clinical information to [facility]. Per Chrissy with [facility] they will resume service within 24-48hrs upon d/c day. Per ADE Quinteros patient daughter will bring patient portable to hospital when she transport patient tonight.
[2019-12-18] MEDS ORDERED: PANT40TA2 PO (15:50)
[2019-12-18] MEDS ORDERED: APIX5TAB PO (15:50)
[2019-12-18] MEDS ORDERED: METR500T PO (15:50)
[2019-12-18] MEDS ORDERED: LEVO-28 PO (15:50)
[2019-12-18 16:57] VITALS: BP 127/72
[2019-12-18 18:09] VITALS: BP 127/72
[2019-12-18] MEDS ORDERED: INFLUENZA QUAD 2020-2021 0.5 ML SYRG IM ONE (19:00)
--- NOTE | 2019-12-18 19:29 | NUR ---
Report given to incoming RN Felisha. Patient still in house and waiting for her daughter to take her home. No changes noted in patient's condition.
--- NOTE | 2019-12-18 19:30 | NUR ---
Opening Shift Note Assumed care of patient, awake and alert x4. No S/S of distress/SOB or pain. Call light is within reach, side rails up x2, bed is in the lowest position. Instructed on POC and to call for assist PRN, will continue to monitor for changes Q1hr and PRN.
--- NOTE | 2019-12-18 21:20 | NUR ---
125 cc of reddish/ orange, viscous fluid drained from cholecystostomy. Demonstrated to patient how to empty the fluid and open and close the bag. Patient gave a returned demonstration and verbalized understanding.
--- NOTE | 2019-12-18 21:40 | NUR ---
Discharge instructions given as ordered. Encourage to follow up with PMD as instructed. All questions and concerns addressed. Patient verbalized understanding. Medication reconciliation form completed and copy given to patient. needed FLU vaccine given. IV removed with catheter intact, pressure dressing applied. Patient taken to vehicle via wheelchair with all personal belongings, accompanied by staff. No distress noted at time of departure.
== END 2019-12-18 21:40 | disposition home health service (06) | DRG 871 ==
LOC: EDBD 15:33 → ER 15:33 → OVERFLOW 15:34 → WEST WING 22:57
PROVIDERS: ADMIT Family Medicine; ATTEND Internal Medicine
PROC: 0F9430Z Drainage of Gallbladder with Drainage Device, Percutaneous Approach (ICD-10-PCS; principal; 2019-12-16)
PROC: BF121ZZ Fluoroscopy of Gallbladder using Low Osmolar Contrast (ICD-10-PCS; 2019-12-16)
PROC: BF42ZZZ Ultrasonography of Gallbladder (ICD-10-PCS; 2019-12-16)
DX: A41.9 Sepsis, unspecified organism (principal); J96.21 Acute and chronic respiratory failure with hypoxia; K80.00 Calculus of gallbladder with acute cholecystitis without obstruction; E44.0 Moderate protein-calorie malnutrition; I50.42 Chronic combined systolic (congestive) and diastolic (congestive) heart failure; Z20.828 Contact with and (suspected) exposure to other viral communicable diseases; E87.6 Hypokalemia; J45.909 Unspecified asthma, uncomplicated; K21.9 Gastro-esophageal reflux disease without esophagitis; E66.9 Obesity, unspecified; E78.5 Hyperlipidemia, unspecified; I11.0 Hypertensive heart disease with heart failure; I25.10 Atherosclerotic heart disease of native coronary artery without angina pectoris; J84.10 Pulmonary fibrosis, unspecified; K59.00 Constipation, unspecified; Z68.30 Body mass index [BMI] 30.0-30.9, adult; B96.20 Unspecified Escherichia coli [E. coli] as the cause of diseases classified elsewhere; I25.2 Old myocardial infarction; Z79.01 Long term (current) use of anticoagulants; Z82.49 Family history of ischemic heart disease and other diseases of the circulatory system; Z86.19 Personal history of other infectious and parasitic diseases; Z86.718 Personal history of other venous thrombosis and embolism
CPT/HCPCS: 36415; 47532; 71045; 74176; 76705; 76942; 80048; 80053; 81001; 82150; 83036; 83690; 83735; 84443; 84484; 85025; 85610; 85730; 86850; 86900; 86901; 87077; 87186; 87205; 93005; 93306; 93970; 94640; 99152; C1729; C9113; G0378; J2001; J2250; J2405; J2543; Q9967

== ENCOUNTER → 2019-12-30 | Outpatient (CLI) | payer MEDICARE, MEDICAID ==
[~2019-12-30] MED LIST changes: -ASPI-394 PO; -FURO20TA3 PO; +LEVO-28 PO; +METR500T PO; -PRE5T PO; -PRED-158 PO
[2019-12-30 10:20] LABS: Basophils # (auto) 0.1 10 ^3/uL (0-0.2); Eosinophils # (auto) 0.1 10 ^3/uL (0-0.8); Neutrophils # (auto) 3.4 10 ^3/uL (1.6-8.6); Nucleated Red Blood Cells % 0.1 %
[2019-12-30 10:22] LABS: Basophils % (auto) 1.9 % (0.0-2.0); Eosinophils % (auto) 1.7 % (0.0-7.0); Hematocrit 38.6 % (36.0-46.0); Hemoglobin 13.2 g/dL (12.2-16.2); Lymphocytes # (auto) 2.6 10 ^3/uL (0.4-5.4); Lymphocytes % (auto) 37.1 % (10.0-50.0); Mean Corpuscular Hemoglobin 31.3 pg (28.0-32.0); Mean Corpuscular Hgb Conc. 34.1 g/dL (32.0-36.0); Mean Corpuscular Volume 91.8 fL (80.0-100.0); Monocytes # (auto) 0.7 10 ^3/uL (0-1.3); Monocytes % (auto) 10.3 % (0.0-12.0); Platelet Count (auto) 556 10^3/uL (140-450); Red Cell Distribution Width 14.3 % (11.8-14.3)
[2019-12-30 11:28] LABS: Potassium 3.5 mmol/L (3.5-5.1)
[2019-12-30 11:31] LABS: BUN/Creatinine Ratio 18.2; Bilirubin, Total 0.3 mg/dL (0.2-1.0); Total Protein 7.4 g/dL (6.4-8.2)
== END | disposition home or self-care (01) ==
LOC: LAB 10:03
PROVIDERS: ATTEND Internal Medicine
DX: I10 Essential (primary) hypertension (principal); E78.5 Hyperlipidemia, unspecified
CPT/HCPCS: 36415; 80053; 85025

== ENCOUNTER → 2020-01-20 | Outpatient (CLI) | payer MEDICARE, MEDICAID | END | disposition home or self-care (01) | LOC: RT 11:14 | PROVIDERS: ATTEND Internal Medicine Pulmonary Disease | DX: U07.1 COVID-19 (principal); J96.21 Acute and chronic respiratory failure with hypoxia | CPT/HCPCS: 94060; 94618; 94727; 94729 ==

== ENCOUNTER → 2020-02-03 | Outpatient (CLI) | payer MEDICARE, MEDICAID | END | disposition home or self-care (01) | LOC: Rad HDHVI 13:18 | PROVIDERS: ATTEND Internal Medicine Cardiovascular Disease | DX: I50.41 Acute combined systolic (congestive) and diastolic (congestive) heart failure (principal); I25.10 Atherosclerotic heart disease of native coronary artery without angina pectoris | CPT/HCPCS: 93306 ==

== ENCOUNTER → 2020-02-05 | Outpatient (CLI) | payer MEDICARE, MEDICAID ==
[~2020-02-05] VITALS: Ht 165.1 cm; Wt 81.6 kg
[~2020-02-05] MED LIST changes: +ADENOSINE 69 MG in GIVE UN-DILUTED 0 ML IV ONE; +ADENOSINE 90 MG/30 ML INJ IV ONE
== END | disposition home or self-care (01) ==
LOC: Rad HDHVI 13:05
PROVIDERS: ATTEND Internal Medicine Cardiovascular Disease
DX: Z01.810 Encounter for preprocedural cardiovascular examination (principal); I10 Essential (primary) hypertension; I25.2 Old myocardial infarction; E78.00 Pure hypercholesterolemia, unspecified; Z82.49 Family history of ischemic heart disease and other diseases of the circulatory system
CPT/HCPCS: 78452; 93005; 96374; 96375; A9500; J0153

== ENCOUNTER → 2020-02-25 | Outpatient (CLI) | payer MEDICARE, MEDICAID ==
[~2020-02-25] MED LIST changes: -ADENOSINE 69 MG in GIVE UN-DILUTED 0 ML IV ONE; -ADENOSINE 90 MG/30 ML INJ IV ONE
== END | disposition home or self-care (01) ==
LOC: XY 08:21
PROVIDERS: ATTEND Surgery
DX: K80.00 Calculus of gallbladder with acute cholecystitis without obstruction (principal); Z98.890 Other specified postprocedural states
CPT/HCPCS: 78226; A9537

== ENCOUNTER → 2020-03-01 | Outpatient (CLI) | payer MEDICARE, MEDICAID ==
[2020-03-01 10:51] LABS: Basophils # (auto) 0 10 ^3/uL (0-0.2); Basophils % (auto) 0.9 % (0.0-2.0); Eosinophils # (auto) 0.2 10 ^3/uL (0-0.8); Eosinophils % (auto) 2.8 % (0.0-7.0); Hematocrit 39.4 % (36.0-46.0); Hemoglobin 13.4 g/dL (12.2-16.2); Lymphocytes # (auto) 2.4 10 ^3/uL (0.4-5.4); Mean Corpuscular Hgb Conc. 33.9 g/dL (32.0-36.0); Mean Corpuscular Volume 88.7 fL (80.0-100.0); Monocytes # (auto) 0.5 10 ^3/uL (0-1.3); Monocytes % (auto) 9.2 % (0.0-12.0); Neutrophils # (auto) 2.4 10 ^3/uL (1.6-8.6); Neutrophils % (auto) 44.1 % (37.0-80.0); Platelet Count (auto) 302 10^3/uL (140-450); Red Blood Cells 4.45 10^6/uL (4.0-5.20); Red Cell Distribution Width 13.9 % (11.8-14.3); White Blood Cell 5.5 10^3/uL (4.4-10.8)
[2020-03-01 12:04] LABS: Potassium 4.3 mmol/L (3.5-5.1)
[2020-03-01 12:33] LABS: Albumin 3.5 g/dL (3.4-5.0); BUN/Creatinine Ratio 20.3; Bilirubin, Direct 0.1 mg/dL (0-0.2); Bilirubin, Total 0.5 mg/dL (0.2-1.0); Total Protein 7.9 g/dL (6.4-8.2)
== END | disposition home or self-care (01) ==
LOC: LAB 10:14
PROVIDERS: ATTEND Surgery
DX: Z01.812 Encounter for preprocedural laboratory examination (principal); K80.00 Calculus of gallbladder with acute cholecystitis without obstruction
CPT/HCPCS: 36415; 80053; 80076; 85025

== ENCOUNTER 2020-03-31 06:48 | Inpatient (IN) | payer MEDICARE, MEDICAID ==
[2020-03-25 13:31] LABS: Basophils # (auto) 0 10 ^3/uL (0-0.2); Basophils % (auto) 0.7 % (0.0-2.0); Eosinophils # (auto) 0.1 10 ^3/uL (0-0.8); Eosinophils % (auto) 1.9 % (0.0-7.0); Hematocrit 40.2 % (36.0-46.0); Hemoglobin 13.7 g/dL (12.2-16.2); Lymphocytes # (auto) 2.6 10 ^3/uL (0.4-5.4); Lymphocytes % (auto) 39.4 % (10.0-50.0); Mean Corpuscular Hemoglobin 30.3 pg (28.0-32.0); Mean Corpuscular Volume 88.9 fL (80.0-100.0); Monocytes # (auto) 0.6 10 ^3/uL (0-1.3); Monocytes % (auto) 9.5 % (0.0-12.0); Neutrophils # (auto) 3.3 10 ^3/uL (1.6-8.6); Neutrophils % (auto) 48.5 % (37.0-80.0); Nucleated Red Blood Cells % 0.1 %; Platelet Count (auto) 278 10^3/uL (140-450); Red Blood Cells 4.53 10^6/uL (4.0-5.20); Red Cell Distribution Width 13.4 % (11.8-14.3); White Blood Cell 6.7 10^3/uL (4.4-10.8)
[2020-03-25 13:34] LABS: Urine Bacteria NONE SEEN /hpf (None Seen); Urine Blood Negative /uL (Negative); Urine Mucus FEW (None Seen); Urine Specific Gravity 1.015 (1.001-1.035); Urine WBC 1 /hpf (0 - 5)
[2020-03-25 13:46] LABS: INR 0.96 (0.9-1.15); Partial Thromboplastin Time 25.4 sec (23.0-31.2)
[2020-03-25 14:03] LABS: Albumin 3.6 g/dL (3.4-5.0); Bilirubin, Total 0.5 mg/dL (0.2-1.0); Potassium 3.6 mmol/L (3.5-5.1); Total Protein 8.4 g/dL (6.4-8.2)
[~2020-03-31] VITALS: Ht 165.1 cm; Wt 87.0 kg
[~2020-03-31 06:48] MED LIST changes: +AMLO-496 PO; -AMLO5TAB15 PO; +AMOX500C2 PO; +ASPI-543 PO; -LEVO-28 PO; -METR500T PO
[2020-03-31] MEDS: BUPIVACAINE 0.25% INJ 50ML VIAL ONE ×2 (06:52→09:20)
[2020-03-31] MEDS ORDERED: POVIDONE IODINE 10 % TOPICAL OINT 30GM TOP ONE (06:52)
[2020-03-31] MEDS ORDERED: ceFAZolin 1GM/50ML 50 ML IV ONE (07:39)
[2020-03-31] MEDS ORDERED: MIDAZOLAM HCL 1MG/1ML-2 ML VIAL ONE (08:09)
[2020-03-31] MEDS ORDERED: ROCURONIUM 10MG/ML 10ML VIAL IV ONE (08:09)
[2020-03-31] MEDS ORDERED: fentaNYL CITRATE 100 MCG/2 ML VL ONE ×2 (08:09→09:42)
[2020-03-31] MEDS ORDERED: PROPOFOL 10 MG/ML 20 ML IV ONE (08:10)
[2020-03-31] MEDS ORDERED: DexAMETHasone SOD PHOS 10MG/1ML VIAL INJ ONE (08:10)
[2020-03-31] MEDS ORDERED: GLYCOPYRROLATE 0.2 MG/ML 1ML VIAL ONE (08:10)
[2020-03-31] MEDS ORDERED: ETOMIDATE (2MG/ML) 20ML VIAL IV ONE (08:10)
[2020-03-31] MEDS ORDERED: LIDOCAINE 2% (LOCAL ANESTH.) PF 5ml SDV ONE (08:10)
[2020-03-31] MEDS ORDERED: HYDROCORTISONE SOD SUCC 100 MG/2ML INJ VIAL ONE (08:10)
[2020-03-31] MEDS ORDERED: ONDANSETRON HCL 4 MG/2 ML VIAL ONE (08:10)
[2020-03-31] MEDS ORDERED: cefTRIAXone 1GM/50ML D5W 50 ML IV ONE (08:13)
[2020-03-31] MEDS ORDERED: HYDROmorphone HCL 2 MG/ML VL ONE (08:28)
[2020-03-31] MEDS ORDERED: NEOSTIGMINE 1 MG/ML INJ (10mg/10ML VIAL) ONE (08:55)
[2020-03-31] MEDS ORDERED: KETAMINE HCL 10 ML ONE (09:01)
[2020-03-31] MEDS ORDERED: metroNIDAZOLE 500MG/100ML 100 ML IV PRN (09:30)
[2020-03-31] MEDS ORDERED: HYDROmorphone HCL 2 MG/ML VL IV PRN ×2 (09:30→10:00)
[2020-03-31] MEDS ORDERED: ONDANSETRON HCL 4 MG/2 ML VIAL IV PRN ×2 (09:30→10:00)
[2020-03-31 09:48] VITALS: BP 99/43
[2020-03-31] MEDS ORDERED: MIDAZOLAM DRIP 50 mg/50mL 50 ML IV SCH (10:00)
[2020-03-31] MEDS ORDERED: fentaNYL Drip 2500mCg/250mlNS 250 ML IV SCH (10:00)
[2020-03-31] MEDS ORDERED: MIDAZOLAM HCL 1MG/1ML-2 ML VIAL IV PRN (10:00)
[2020-03-31] MEDS ORDERED: FUROSEMIDE 20 MG/2 ML VIAL ONE (10:09)
[2020-03-31] MEDS ORDERED: MIDAZOLAM HCL 1MG/1ML-2 ML VIAL IV ONE (10:24)
[2020-03-31] MEDS ORDERED: FUROSEMIDE 20 MG/2 ML VIAL IV ONE (10:27)
[2020-03-31] MEDS ORDERED: metroNIDAZOLE 500MG/100ML 100 ML IV SCH (11:15)
[2020-03-31] MEDS: metroNIDAZOLE 500MG/100ML 100 ML IV SCH ×2 (11:45→19:44)
[2020-03-31] MEDS: PANTOPRAZOLE 40 MG/10 ML VIAL INJ IV SCH (12:39)
[2020-03-31] MEDS ORDERED: PANTOPRAZOLE 40 MG/10 ML VIAL INJ IV ONE (12:39)
[2020-03-31] MEDS ORDERED: HYDROmorphone HCL 2 MG/ML VL IV ONE ×4 (13:20→15:55)
[2020-03-31 13:46] VITALS: BP 112/64
[2020-03-31] MEDS: ceFAZolin 1GM/50ML 50 ML IV SCH ×2 (15:20→22:15)
[2020-03-31] MEDS ORDERED: NITROGLYCERIN 0.4 MG SL TAB SL PRN (16:00)
[2020-03-31] MEDS ORDERED: SODIUM CHLORIDE 0.9% 1,000 ML IV ONE (16:00)
[2020-03-31] MEDS ORDERED: MORPHINE SULF INJ 2 MG/ML SYRINGE 1ML IV PRN (16:00)
[2020-03-31 17:50] VITALS: BP 121/89
[2020-03-31 17:51] VITALS: BP 128/70
[2020-03-31] MEDS: ACETAMINOPHEN/CODEINE#3 (300/30mg) TAB PO PRN (19:44)
[2020-03-31 21:00] VITALS: BP 136/77
[2020-03-31] MEDS: HYDROmorphone HCL 2 MG/ML VL IV PRN (22:31)
[2020-04-01] MEDS: metroNIDAZOLE 500MG/100ML 100 ML IV SCH (03:00)
[2020-04-01 05:46] LABS: Basophils # (auto) 0 10 ^3/uL (0-0.2); Basophils % (auto) 0.1 % (0.0-2.0); Eosinophils # (auto) 0 10 ^3/uL (0-0.8); Hemoglobin 12.4 g/dL (12.2-16.2); Lymphocytes # (auto) 1.6 10 ^3/uL (0.4-5.4); Mean Corpuscular Hemoglobin 30.7 pg (28.0-32.0); Mean Corpuscular Hgb Conc. 34.4 g/dL (32.0-36.0); Mean Corpuscular Volume 89.3 fL (80.0-100.0); Monocytes % (auto) 8.9 % (0.0-12.0); Neutrophils # (auto) 8.6 10 ^3/uL (1.6-8.6); Nucleated Red Blood Cells % 0.2 %; Platelet Count (auto) 241 10^3/uL (140-450); Red Blood Cells 4.03 10^6/uL (4.0-5.20); Red Cell Distribution Width 13.7 % (11.8-14.3); White Blood Cell 11.1 10^3/uL (4.4-10.8)
[2020-04-01] MEDS: ceFAZolin 1GM/50ML 50 ML IV SCH ×3 (06:00→21:26)
[2020-04-01 08:00] VITALS: BP 112/74
[2020-04-01] MEDS: PANTOPRAZOLE 40 MG/10 ML VIAL INJ IV SCH (08:50)
[2020-04-01 12:49] VITALS: BP 128/70
[2020-04-01 17:00] VITALS: BP 121/78
[2020-04-01] MEDS: ACETAMINOPHEN/CODEINE#3 (300/30mg) TAB PO PRN (20:27)
[2020-04-01 21:51] VITALS: BP 132/69
[2020-04-01] MEDS: HYDROcodone-ACET 5/325MG TAB PO PRN (22:03)
[2020-04-02] MEDS: ceFAZolin 1GM/50ML 50 ML IV SCH ×3 (05:03→22:00)
[2020-04-02 06:05] VITALS: BP 127/73
[2020-04-02 07:05] LABS: Basophils # (auto) 0.1 10 ^3/uL (0-0.2); Basophils % (auto) 0.7 % (0.0-2.0); Eosinophils # (auto) 0.1 10 ^3/uL (0-0.8); Eosinophils % (auto) 1.7 % (0.0-7.0); Hematocrit 34.7 % (36.0-46.0); Hemoglobin 11.7 g/dL (12.2-16.2); Lymphocytes % (auto) 36.9 % (10.0-50.0); Mean Corpuscular Hemoglobin 30.3 pg (28.0-32.0); Mean Corpuscular Hgb Conc. 33.8 g/dL (32.0-36.0); Mean Corpuscular Volume 89.6 fL (80.0-100.0); Monocytes # (auto) 0.9 10 ^3/uL (0-1.3); Monocytes % (auto) 11.1 % (0.0-12.0); Neutrophils % (auto) 49.6 % (37.0-80.0); Nucleated Red Blood Cells % 0.1 %; Platelet Count (auto) 247 10^3/uL (140-450); Red Blood Cells 3.87 10^6/uL (4.0-5.20); Red Cell Distribution Width 13.8 % (11.8-14.3)
[2020-04-02 07:20] LABS: BUN/Creatinine Ratio 13.8; Calcium 8.9 mg/dL (8.5-10.1); Potassium 3.8 mmol/L (3.5-5.1)
[2020-04-02 07:22] LABS: Bilirubin, Total 0.6 mg/dL (0.2-1.0); Total Protein 6.9 g/dL (6.4-8.2)
[2020-04-02] MEDS: HYDROmorphone HCL 2 MG/ML VL IV PRN ×2 (08:36→20:19)
[2020-04-02 09:00] VITALS: BP 126/83
[2020-04-02] MEDS: PANTOPRAZOLE 40 MG/10 ML VIAL INJ IV SCH (10:10)
[2020-04-02 13:00] VITALS: BP 131/94
[2020-04-02 17:01] VITALS: BP 129/90
[2020-04-02 21:38] VITALS: BP 150/92
[2020-04-03] MEDS: HYDROcodone-ACET 5/325MG TAB PO PRN ×2 (04:56→13:02)
[2020-04-03 05:00] VITALS: BP 139/80
[2020-04-03] MEDS ORDERED: DOCUSATE SOD 100 MG CAP PO ONE (05:00)
[2020-04-03] MEDS: ceFAZolin 1GM/50ML 50 ML IV SCH (06:06)
[2020-04-03 07:55] VITALS: BP_SYST 111; BP_SYST 95; BP_DIAS 60; BP_DIAS 67
[2020-04-03] MEDS ORDERED: PHENYLEPHRINE HCL 10 MG/ML VL IV ONE (09:20)
[2020-04-03] MEDS ORDERED: PANTOPRAZOLE 40 MG TAB PO SCH (10:00)
== END 2020-04-03 14:51 | disposition home or self-care (01) | DRG 418 ==
LOC: SUR 06:48 → TELE-CENTR 06:49
PROVIDERS: ADMIT Surgery; ATTEND Internal Medicine
PROC: 0FT44ZZ Resection of Gallbladder, Percutaneous Endoscopic Approach (ICD-10-PCS; 2020-03-31)
PROC: 0DNU4ZZ Release Omentum, Percutaneous Endoscopic Approach (ICD-10-PCS; 2020-03-31)
PROC: 0WP Anatomical Regions, General, Removal (ICD-10-PCS; 2020-03-31)
PROC: 5A1935Z Respiratory Ventilation, Less than 24 Consecutive Hours (ICD-10-PCS; 2020-03-31)
PROC: 0BH17EZ Insertion of Endotracheal Airway into Trachea, Via Natural or Artificial Opening (ICD-10-PCS; principal; 2020-03-31 08:10)
DX: K80.10 Calculus of gallbladder with chronic cholecystitis without obstruction (principal); J96.11 Chronic respiratory failure with hypoxia; I50.22 Chronic systolic (congestive) heart failure; I42.8 Other cardiomyopathies; E66.9 Obesity, unspecified; Z86.16 Personal history of COVID-19; I11.0 Hypertensive heart disease with heart failure; Z20.822 Contact with and (suspected) exposure to COVID-19; Z79.01 Long term (current) use of anticoagulants; Z79.51 Long term (current) use of inhaled steroids; Z79.899 Other long term (current) drug therapy; Z82.49 Family history of ischemic heart disease and other diseases of the circulatory system; Z86.718 Personal history of other venous thrombosis and embolism; Z99.81 Dependence on supplemental oxygen; K66.0 Peritoneal adhesions (postprocedural) (postinfection); Z68.30 Body mass index [BMI] 30.0-30.9, adult
CPT/HCPCS: 36415; 36600; 71045; 80053; 81001; 82247; 82805; 85025; 85610; 85730; 86850; 86900; 86901; 87070; 87205; 93306; 94002; C9113; G0378; J0690; J0696; J1100; J2001; J2250; J2405; J2704; J3490